=== PATIENT | male | born 1955 | race Hispanic/Latino ===

== ENCOUNTER 2017-09-11 21:48 | Inpatient (IN) | payer SELFPAY ==
[2017-09-11] MEDS ORDERED: Naloxone HCl 2 mg/2 ml Syringe ONE (21:49)
[2017-09-11 22:10] LABS: #Basophils 0.1 thou/uL (0.0-0.2); #Eosinphils 0.4 thou/uL (0.0-0.7); #Lymphocytes 3.1 thou/uL (1.20-3.40); #Monocytes 1.3 thou/uL (0.11-0.59); #Neutrophils 6.5 thou/uL (1.40-6.50); %Basophils 0.4 % (0.0-1.0); %Eosinophils 3.7 % (0.0-10.0); %Lymphocytes 27.1 % (21.0-51.0); %Monocytes 11.5 % (0.0-10.0); %Neutrophils 57.2 % (42.0-75.0); Hemoglobin 6.7 g/dL (14.0-18.0); Mean Corpuscular HGB CONC 32.3 g/dL (32.0-36.0); Mean Corpuscular Volume 89.6 fL (78.0-98.0); Mean Platelet Volume 8.4 fL (7.4-10.4); Platelet Count 182 thou/uL (130-400); RBC Distribution Width 14.3 % (11.5-14.5); Red Blood Cell (RBC) Count 2.31 mill/uL (4.70-6.10); White Blood Cell (WBC) Count 11.4 thou/uL (4.8-10.8)
[2017-09-11 22:13] LABS: INR-International Normal Ratio 1.4; PTT 37.9 SEC (22.9-36.1); Prothrombin Time 17.2 SEC (12.0-14.7)
[2017-09-11 22:26] LABS: ALT (SGPT) 8 U/L (8-55); AST (SGOT) 4 U/L (5-34); Albumin 3.6 g/dL (3.4-4.8); Alkaline Phosphatase 63 U/L (40-150); BUN (Urea Nitrogen) 96 mg/dL (8.4-25.7); Bilirubin, Total 0.3 mg/dL (0.2-1.2); Calc. Creatinine Clearance 0 mL/min (70-130); Calcium 7.8 mg/dL (7.8-10.44); Chloride 112 mmol/L (98-107); Estimated GFR-MDRD 2; Globulin 2.6 g/dL (2.4-3.5); Glucose 69 mg/dL (80-115); Potassium 5.7 mmol/L (3.5-5.1); Protein, Total 6.2 g/dL (5.8-8.1); Sodium 134 mmol/L (136-145)
[2017-09-11 22:27] LABS: Acetaminophen Less than 6.0 mcg/mL (10.0-30.0); Alcohol Less than 10 mg/dL (Less than 10); Salicylate Less than 8.0 mg/dL (15.0-30.0)
[2017-09-11 22:29] LABS: Carbon Dioxide Less than 8 mmol/L (23-31)
--- NOTE | 2017-09-11 22:38 | CT ---
CT BRAIN NONCONTRAST: 09/11/17 HISTORY: 62-year-old male with headache, generalized weakness, unresponsiveness, (altered mental status). FINDINGS: There is no midline shift or any other mass effect. There is no evidence of acute intracranial hemor rhage, large cortical infarct, obstructive hydrocephalus, or extraaxial fluid collection. The calvar ium is intact. IMPRESSION: No acute intracranial findings. jacob [] POS: JULIAN[facility]
[2017-09-11] MEDS ORDERED: Sodium Bicarbonate 2.5 MEQ/5 ML VIAL ONE (22:40)
[2017-09-11] MEDS ORDERED: Sodium Bicarb 50 MEQ/50 ML Abboject 8.4% SYRINGE ONE (22:40)
[2017-09-11] MEDS ORDERED: Dextrose 50% Abboject 50 ML SYRINGE ONE (22:40)
--- NOTE | 2017-09-11 22:53 | CT ---
CT CERVICAL SPINE NONCONTRAST: DATE: 09/11/17 HISTORY: Cervical trauma due to fall. FINDINGS: There are no jumped or perched facets. There is no evidence of acute fracture. The vertebral body h eights are maintained. There is no prevertebral soft tissue swelling. 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 The atlas (C1) is completely fused with the occipital bone. There is no significant disc space narrowing. Moderate degenerative facet changes bilaterally at C2-3. Loss of lordosis. IMPRESSION: 1. No evidence of acute fracture or acute traumatic subluxation. 2. 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 jacob east POS: [facility]
[2017-09-11 23:20] LABS: CKMB 6.6 ng/mL (0-6.6); Troponin I Less than 0.010 ng/mL (< 0.028)
[2017-09-12 00:11] LABS: Bilirubin Negative (Negative); Blood, Urine Moderate (Negative); Glucose, Urine (Dipstick) Negative (Negative); Leukocyte Moderate (Negative); Nitrite Negative (Negative); Protein, Urine (Dipstick) > or equal to 300 mg/dL (Neg-Trace); Specific Gravity, Urine 1.025 (1.005-1.030); Urobilinogen 0.2 mg/dL (0.2-1.0)
[2017-09-12 00:13] LABS: Clarity Cloudy (Clear); Other Microscopic Description Less than 2 mL rec'd
[2017-09-12 00:15] LABS: Bacteria/HPF 2+ HPF (None Seen); Hyaline Casts/LPF NONE SEEN LPF (0-3 Hyaline); Squamous Epithelial 0-3 HPF (0-3)
[2017-09-12] MEDS ORDERED: cefTRIAXone\\ROCEPHIN 2 GM VIAL ONE (01:05)
--- NOTE | 2017-09-12 01:42 | PDOC.FPRHP ---
- History of Present Illness Chief Complaint: HOANG History of Present Illness: Patient is a 62yo M with PMH T2DM, recently taken off Metformin 1.5months ago, presents to ED via EMS initially unresponsive after a syncopal episode at the door of the hospital. Family initially called EMS due to patient acting differently than normal, somewhat confused, and a HOANG that he complained of for about a month that was worsening in nature. He also complained of back pain that had been going on for about 2 weeks. In the ED, he quickly became responsive with stimulus. After labs were drawn, he was found to be in acute renal failure. Dr. Yates was consulted from ED and recommended dialysis access and NS at 75ml/hr. Upon further questioning, patient cannot remember the last time he urinated. He reports going to an outside clinic somewhere in [place] on [address] [place] [address] 2 weeks ago and getting labs drawn, but hasn't heard back from those test results. He has been feeling generally ill for the last week. History is difficult to obtain likely because of language barrier and some confusion. Son is present in the room who again reports some confusion at home although he does not live with him so cannot say how long this has been going on. Patient reports no dysuria, fever, or recent illness. ED Course: In the ED he received 2.5L NS, 1amp bicarb, 1amp D50, and Rocephin 2g. Dr. Yates was also consulted in ED and recommended temporary dialysis access placement and NS at 75ml/hr. Dialysis catheter was inserted in ED by Dr. Schroeder. - Allergies/Adverse Reactions Allergies Allergy/AdvReac Type Severity Reaction Status Date / Time No Known Allergies Allergy Unverified 09/12/17 03:29 - Home Medications Medication Instructions Recorded Confirmed Type No Known [No Known] 09/12/17 09/12/17 History Comments: none - History PMHx: T2DM Hx of osteomyelitis s/p amputation of L 4th toe PSHx: Back sx x1 L 4th toe amputation FHx: DM in mother Social: Drinks alcohol 1x/month, denies tobacco and drug use. - Review of Systems General: denies: fever/chills, weight/appetite/sleep changes, night sweats Eyes: denies: eye pain, vision changes ENT: denies: nasal congestion, rhinorrhea Respiratory: denies: cough, congestion, shortness of breath Cardiovascular: reports: edema. denies: chest pain, palpitation Gastrointestinal: reports: nausea, abdominal pain. denies: vomiting, diarrhea, constipation Genitourinary: denies: incontinence, dysuria, polyuria Skin: denies: rashes Musculoskeletal: reports: pain (back pain). denies: tenderness, stiffness Neurological: reports: syncope, weakness. denies: numbness, seizure Psychological: denies: anxiety, depression - Vital signs BP: 115/71 (initial 90/58) HR: 70 RR: 14 Tmax: 98.1 Pox: 100% on RA Wt: 81kg - Physical Exam Constitutional: awake, alert and oriented -Constitutional: slightly confused but responsive, questions have to be repeated multiple times, could be due to language barrier, card grinder used. HEENT: EOMI, no scleral icterus, grossly normal vision -HEENT: dry MM Heart: normal S1/S2, no murmurs/rubs/gallops, pulses present -Heart: slightly bradycardic, 1+ pitting edema in b/l LE -Lungs: increased work of breathing, increased respiratory rate, wheezing throughout Abdomen: bowel sounds present, no masses/distention -Abdomen: patient is using abdominal muscles while breathing which leads to technically difficult exam, ttp along LLQ, RLQ, and suprapubic area. CVAT bilaterally. Musculoskeletal: normal structure, normal tone Neurological: no focal deficit Skin: no rash/lesions Heme/Lymphatic: no unusual bruising or bleeding, no purpura FMR H&P: Results - Labs Result Diagrams: 09/12/17 04:18 09/11/17 22:00 Lab results: WBC 11.4 thou/uL (4.8-10.8) H 09/11/17 22:06 Hgb 6.7 g/dL (14.0-18.0) L 09/11/17 22:06 Hct 20.7 % (42.0-52.0) L 09/11/17 22:06 MCV 89.6 fL (78.0-98.0) 09/11/17 22:06 Plt Count 182 thou/uL (130-400) 09/11/17 22:06 Neutrophils % 57.2 % (42.0-75.0) 09/11/17 22:06 Sodium 134 mmol/L (136-145) L 09/11/17 22:00 Potassium 5.7 mmol/L (3.5-5.1) H 09/11/17 22:00 Chloride 112 mmol/L (98-107) H 09/11/17 22:00 Carbon Dioxide Less than 8 mmol/L (23-31) L* 09/11/17 22:00 BUN 96 mg/dL (8.4-25.7) H 09/11/17 22:00 Creatinine 24.89 mg/dL (0.6-1.3) H 09/11/17 22:00 Glucose 69 mg/dL (80-115) L 09/11/17 22:00 Lactic Acid 0.8 mmol/L (0.5-2.2) 09/11/17 22:00 Calcium 7.8 mg/dL (7.8-10.44) 09/11/17 22:00 Total Bilirubin 0.3 mg/dL (0.2-1.2) 09/11/17 22:00 AST 4 U/L (5-34) L 09/11/17 22:00 ALT 8 U/L (8-55) 09/11/17 22:00 Alkaline Phosphatase 63 U/L (40-150) 09/11/17 22:00 CK-MB (CK-2) 6.6 ng/mL (0-6.6) 09/11/17 22:00 Serum Total Protein 6.2 g/dL (5.8-8.1) 09/11/17 22:00 Albumin 3.6 g/dL (3.4-4.8) 09/11/17 22:00 Urine Ketones Negative mg/dL (Negative) 09/11/17 22:15 Urine Blood Moderate (Negative) H 09/11/17 22:15 Urine Nitrite Negative (Negative) 09/11/17 22:15 Ur Leukocyte Esterase Moderate (Negative) H 09/11/17 22:15 Urine RBC 4-6 HPF (0-3) 09/11/17 22:15 Urine WBC 11-20 HPF (0-3) H 09/11/17 22:15 Ur Squamous Epith Cells 0-3 HPF (0-3) 09/11/17 22:15 Urine Bacteria 2+ HPF (None Seen) H 09/11/17 22:15 - Radiology Interpretation CT scan - head Status: image reviewed by me, report reviewed by me Additional comment: negative for intracranial process CT scan - abdomen Status: image reviewed by me, report reviewed by me Additional comment: Bilateral nephrolithiasis with 1 8mm lobulated stone in UPJ FMR H&P: A/P - Problem List (1) Acute renal failure Current Visit: Yes Status: Acute (2) Urinary tract obstruction by kidney stone Current Visit: Yes Status: Acute Code(s): N20.0 - CALCULUS OF KIDNEY; N13.8 - OTHER OBSTRUCTIVE AND REFLUX UROPATHY (3) Sepsis secondary to UTI Current Visit: Yes Status: Acute Code(s): A41.9 - SEPSIS, UNSPECIFIED ORGANISM; N39.0 - URINARY TRACT INFECTION, SITE NOT SPECIFIED (4) Bilateral nephrolithiasis Current Visit: Yes Status: Acute Code(s): N20.0 - CALCULUS OF KIDNEY (5) Coagulopathy Current Visit: Yes Status: Acute (6) Hyperkalemia Current Visit: Yes Status: Acute Code(s): E87.5 - HYPERKALEMIA (7) High anion gap metabolic acidosis Current Visit: Yes Status: Acute Code(s): E87.2 - ACIDOSIS (8) UTI (urinary tract infection) Current Visit: Yes Status: Acute (9) Normocytic anemia Current Visit: Yes Status: Chronic Code(s): D64.9 - ANEMIA, UNSPECIFIED (10) Chronic kidney disease (CKD) Current Visit: Yes Status: Chronic Code(s): N18.9 - CHRONIC KIDNEY DISEASE, UNSPECIFIED (11) Hyperchloremia Current Visit: Yes Status: Acute Code(s): E87.8 - OTH DISORDERS OF ELECTROLYTE AND FLUID BALANCE, NEC (12) Diabetes mellitus Current Visit: Yes Status: Chronic Code(s): E11.9 - TYPE 2 DIABETES MELLITUS WITHOUT COMPLICATIONS - Plan Acute Renal Failure on CKDIII - Likely 2/2 obstructing stone in UPJ seen on CT, but per hx, concern for worsening chronic kidney disease with discontinuation of Metformin recently and progressive sx since that time. Also, patient meeting SIRS criteria with hypotension (90/58), hypothermia (94.1), tachypnea (24) and UA showing UTI as a source, with possibility of an infected stone. Place in IMCU for close monitoring. - [place] consulted in ED, plan for dialysis this AM - Mg, Phos, PTH pending - FeUrea pending - evaluate for toxic cause with UDS - NS at 75ml/hr per Yates recs - avoid nephrotoxic agents Sepsis 2/2 UTI - s/p 2g Rocephin in ED - continue Rocephin q24h - blood and urine cx pending - LA wnl - procalcitonin pending - repeat CBC - s/p 2.5L IVF in ED, continue NS at 75 per Yates recs Obstructing 8mm Stone - [facility] urology, consulted ED - NPO for possible procedure Hyperchloremic Anion Gap Metabolic Acidosis - 2/2 Uremia from ARF - plan for dialysis - patient s/p 1 amp bicarb in ED - repeat CMP this AM Normocytic Anemia - appears to be worsening of chronic anemia per chart review from stay in 09/2016 - Hg 6.7, asymptomatic, likely 2/2 CKD - plan for 1u pRBC with dialysis this am - iron studies and FOBT pending Hyperkalemia - initally volume depleted on exam, now s/p 2.5L, will repeat after fluids and reassess for need for calcium gluconate and albuterol - repeat EKG pending Coagulopathy - PT and PTT prolonged, per chart review, was prolonged to lesser degree in 2017 - likely related to CKD - evaluate for hepatic source with hepatitis panel T2DM - last A1c in chart wnl - repeat A1c - SSI Syncopal Episode - 2/2 acute illness - fall precautions and up with assist until improvements Headache - resolved after fluids, likely 2/2 uremia - CThead negative - avoid NSAIDS - tylenol for pain if needed VTE Ppx: SCDs Code status: Full Dispo: likely stay >48h for evaluation of ARF and future management FMR H&P: Upper Level - Pertinent history 62HM presenting to ED with 8 day history of headache and general malaise. Patient with very low health literacy and Kyrgyz as second language, providing minimal history despite use of card grinder. He has had a constant headache and vague lumbar back pain for over a week now. His son called EMS and upon arrival patient had a syncopal episode. He "could not feel his legs from his knees down " at the time. It is unclear when the last time he urinated was. He denies hematuria and dysuria. Review of records shows PM of DMII, HTN, HLD, and PVD. Evaluation in ED shows significant renal deterioration compared to previous labs. Nephrology consulted by ED physician and recommend central venous access for dialysis today. He is s/p 2.5 L NS, 1 amp of bicarb, 1 amp of D50, and Rocephin. - Pertinent findings Vitals: 115/71 mmHg 70 bpm 14 breaths/m 100% on RA 98.1F PE General: A&Ox3 HEENT: no scleral icterus, dry mucous membranes CV: RRR, no murmurs Pulm: bilateral expiratory wheezes Abd: soft, non distended, normal bowel sounds Skin: no rashes or lesions See fall internship portion for imaging results - Plan Date/Time: 09/12/17 1459 1. Acute Renal Failure on CKDIII: unclear etiology at this time. Possibly due to obstructing stone seen on CT, but history consistent with gradual worsening of poor baseline kidney function. UTI shows possible infectious source, but initial vitals in ED are wnl. Will draw urine osms, FeUrea, Procalcitonin for further workup. Admit inpatient/IMCU. Dr. Yates will follow and dialyze tomorrow. Continue NS @ 75 per his recommendations 2. UTI: 8 mm stone in UP junction likely the cause. He is s/p 2G Rocephin in ED. Will continue abx with cultures and procal pending. Urology (Franko) consulted and will evaluate in the AM. 3. Hyperchloremic Anion Gap Metabolic Acidosis: secondary to uremia. Bicarbonate is undetectable upon admission. Dialysis tomorrow with recheck of CMP. Trend and treat accordingly 4. Normocytic Anemia: likely secondary to CKD. Normal Hg is between 9-10. He is asymptomatic currently so we will hold off on blood. Likely EPO per Nephro. Iron studies and FOBT pending. 5. Hyperkalemia: initial EKG showed peaked T waves, will repeat now and recheck after 2.5L fluid. Will likely need calcium gluconate, albuterol, and Kayexalate. 6. DMII: recheck A1C due to poor history. SSI with accuchecks qAC/HS Code status: Full I, Hudson Mckeon, have evaluated this patient and agree with findings/plan as outlined by fall internship resident. Pertinent changes/additions are listed here.
[2017-09-12] MEDS ORDERED: Dextrose 50% Abboject 50 ML SYRINGE SLOW IVP PRN (03:23)
[2017-09-12] MEDS ORDERED: Dextrose 5% in Water 1,000 ML IV PRN (03:23)
[2017-09-12] MEDS ORDERED: HumaLOG 300 UNITS/3 ML VIAL SC PRN (03:28)
[2017-09-12] MEDS ORDERED: Acetaminophen 325 MG TAB PO PRN (03:31)
[2017-09-12] MEDS ORDERED: Ondansetron ODT 4 MG TAB SL PRN (03:31)
[2017-09-12] MEDS ORDERED: Ondansetron HCl/PF 4 MG/2 ML Vial IVP PRN (03:31)
[2017-09-12 03:39] LABS: Amphetamine Not Detected (NotDetected); Barbiturates Screen Not Detected (NotDetected); Benzodiazepine Screen Not Detected (NotDetected); Cocaine Metabolite Screen Not Detected (NotDetected); Medtox Control Line Valid? VALID (VALID); Medtox Reader # READER 1; Methadone Not Detected (NotDetected); Methamphetamine Not Detected (NotDetected); Opiate Screen Not Detected (NotDetected); Oxycodone Screen Not Detected (NotDetected); Phencyclidine (PCP) Not Detected (NotDetected); THC/Cannabinoid Screen Not Detected (NotDetected); Tricyclic Screen Not Detected (NotDetected)
[2017-09-12] MEDS: Sodium Chloride 0.9% 1,000 ML IV SCH ×2 (04:42→18:09)
[2017-09-12 04:55] LABS: Creatinine, Urine 180.91 mg/dL (63-166)
[2017-09-12 05:02] LABS: #Eosinphils 0.2 thou/uL (0.0-0.7); #Lymphocytes 1.3 thou/uL (1.20-3.40); #Monocytes 0.9 thou/uL (0.11-0.59); #Neutrophils 6.2 thou/uL (1.40-6.50); %Basophils 0.3 % (0.0-1.0); %Eosinophils 2.3 % (0.0-10.0); %Lymphocytes 14.8 % (21.0-51.0); %Monocytes 10.1 % (0.0-10.0); %Neutrophils 72.4 % (42.0-75.0); Hemoglobin 6.3 g/dL (14.0-18.0); Mean Corpuscular HGB CONC 31.9 g/dL (32.0-36.0); Mean Corpuscular Hemoglobin 28.6 pg (27.0-31.0); Mean Corpuscular Volume 89.4 fL (78.0-98.0); Mean Platelet Volume 8.3 fL (7.4-10.4); Platelet Count 159 thou/uL (130-400); RBC Distribution Width 14.3 % (11.5-14.5); White Blood Cell (WBC) Count 8.6 thou/uL (4.8-10.8)
[2017-09-12 05:09] LABS: Hemoglobin A1c 5.9 % (4.0-6.0)
[2017-09-12 05:16] LABS: ALT (SGPT) 7 U/L (8-55); AST (SGOT) 3 U/L (5-34); Albumin 3.4 g/dL (3.4-4.8); Alkaline Phosphatase 58 U/L (40-150); BUN (Urea Nitrogen) 91 mg/dL (8.4-25.7); Bilirubin, Total 0.2 mg/dL (0.2-1.2); CK (CPK) 148 U/L (30-200); Calc. Creatinine Clearance 3 mL/min (70-130); Calcium 7.5 mg/dL (7.8-10.44); Chloride 116 mmol/L (98-107); Estimated GFR-MDRD 2; Globulin 2.4 g/dL (2.4-3.5); Glucose 94 mg/dL (80-115); Magnesium 2.7 mg/dL (1.6-2.6); Potassium 5.2 mmol/L (3.5-5.1); Protein, Total 5.8 g/dL (5.8-8.1); Sodium 136 mmol/L (136-145)
[2017-09-12 05:19] LABS: Carbon Dioxide Less than 8 mmol/L (23-31); Phosphorus 11.8 mg/dL (2.3-4.7)
[2017-09-12 05:32] LABS: Syphilis Antibody Nonreactive (Nonreactive); Syphilis Antibody Index 0.03 S/CO (<1.00 Non-Reactive)
[2017-09-12 05:35] LABS: HBCM Index 0.13 S/CO (0-0.79); HBSAg Index 0.18 S/CO (0-0.99); Hep B Surf Ag Non-Reactive S/CO (NonReactive); Hep C IgG Ab Non-Reactive (NonReactive); Hepatitis B Core IGM Abs Non-Reactive (NonReactive)
--- NOTE | 2017-09-12 06:35 | PDOC.EVN ---
Event Note - Event Note Event Note: Attending attestation for H&P. Seen and examined. Agree with H&P as written. Patient has been reportedly bed bound for a week after discussing with son, who was notified of his father's condition by a friend. Has had back pain, chills, fevers, but no dysuria or urgency. He is ill appearing, but in no acute distress. Labs and imaging reviewed. BC, UC and antibiotics, urology consultation. Admission to IMCU. Dialysis catheter in place and plan for this AM with transfusion at that time. Guarded prognosis.
[2017-09-12] MEDS: Acetaminophen 325 MG TAB PO PRN ×2 (08:41→18:07)
--- NOTE | 2017-09-12 08:43 | CT ---
PRELIMINARY REPORT/[facility]/EMERGENTY AFTER-HOURS PROCEDURE CT Abdomen and Pelvis Without Intravenous Contrast CLINICAL HISTORY: 62 years old, male; Pain; Abdominal pain; Generalized; Patient HX: Eval for possible obstruction. HX of acute kidney injury. TECHNIQUE: Axial computed tomography images of the abdomen and pelvis without intravenous contrast. COMPARISON: No relevant prior studies available. FINDINGS: Lower thorax: No acute findings. ABDOMEN: Liver: Normal. No mass. Gallbladder and bile ducts: Normal. No calcified stones. No ductal dilation. Pancreas: Normal. No ductal dilation. Spleen: Normal. No splenomegaly. Adrenals: Normal. No mass. Kidneys and ureters: Lobulated 8 mm stone in the left ureteropelvic junction (UPJ). Mild-moderate lef t proximal renal collecting system dilatation and perinephric fat stranding. Mild-moderate bilateral perinephric fluid stranding. Bilateral renal densities are suspected stones-8 mm in maximal size. Stomach and bowel: Normal. No obstruction. No mucosal thickening. Appendix: Visualized portions of appendix appear normal. PELVIS: Bladder: Landry catheter bulb within empty bladder. Reproductive: Prostate appears within normal limits. ABDOMEN and PELVIS: Intraperitoneal space: Mild pelvic free fluid. Bones/joints: Chronic degenerative changes of the lumbar spine. Soft tissues: Unremarkable. Vasculature: Chronic atherosclerotic calcification of the vasculature. Lymph nodes: Normal. No enlarged lymph nodes. IMPRESSION: 1. Lobulated 8 mm stone in the left ureteropelvic junction (UPJ). Mild-moderate left proximal obstruc tive uropathy and obstructive nephropathy. 2. Suspected bilateral renal stones. 3. Mild pelvic free fluid. Thank you for allowing us to participate in the care of your patient. Dictated and Authenticated by: Qasim Allen MD 09/12/2017 2:16 AM Central Time ([place] & [place]) FINAL REPORT CT ABDOMEN AND PELVIS: Multiple tomograms are obtained through the abdomen and pelvis without IV enhancement. There are bilateral renal calculi with numerous calculi in the upper collecting structures of both ki dneys. There is an 8-10 mm calculus in the proximal left ureter at or just beyond the left ureterope lvic junction. I am in agreement with the preliminary report. POS: [facility]
[2017-09-12 09:05] LABS: Hep B Surf AB Reactive (NonReactive)
[2017-09-12 09:06] LABS: HBSAB Concentration 2599.97 mIU/mL
[2017-09-12] MEDS ORDERED: Succinylcholine Chloride 20 MG/ML 10 ml SYRINGE FS ONE (10:26)
[2017-09-12] MEDS ORDERED: PROPOFOL 200 MG/20 ML VIAL ONE (10:26)
[2017-09-12] MEDS ORDERED: Lidocaine 1% PF 5 ML VIAL ONE (10:26)
[2017-09-12] MEDS ORDERED: Ondansetron HCl/PF 4 MG/2 ML Vial ONE (10:26)
[2017-09-12] MEDS ORDERED: ePHEDrine/0.9% NaCl/PF SYRINGE 50 mg/10 ml ONE (10:26)
[2017-09-12] MEDS ORDERED: Heparin 1,000 UNITS/ML VIAL ONE (11:11)
--- NOTE | 2017-09-12 11:24 | CON ---
DATE OF CONSULTATION: 09/12/2017 RENAL MEDICINE HISTORY OF PRESENT ILLNESS: Mr. Clark is a 62-year-old male who was admitted due to mental s tatus change. He has been feeling weak for the last several days and for that reason he was brought to the ER. During the initial evaluation in the ER, he was found to be in acute kidney injury. CT s can of the brain was done which showed no acute intracranial abnormality. However, creatinine was no norm to be about 24 mg percent, hence did renal consultation. Subsequent CT scan of the abdomen and p shawna showed obstructive uropathy. Urology has been consulted. He is now undergoing hemodialysis fo r 2 hours. In addition, a blood transfusion will be given during that said dialysis. Patient still feeling lethargic. REVIEW OF SYSTEMS: No chest pain. Positive for lethargy, no nausea and vomiting. Decreased appetit e, decreased energy level. Positive for abdominal pain. No gross hematuria, decreased urine output. No hematochezia, no melena, no hematemesis, no syncopal episode, no productive cough, no fever or c hills. MEDICATIONS: Humalog sliding scale, Zofran 4 mg IV q.6 p.r.n., status post Pneumovax, normal saline 75 mL per hour. PAST MEDICAL HISTORY: Type 2 diabetes mellitus. PAST SURGICAL HISTORY: Status post left toe amputation. SOCIAL HISTORY: Patient is , but lives in [place]. He lives with a friend. He lives in [place]. He has total of 4 children. Smoked 1-2 cigarettes per day. Alcohol is occasional. No IV dr ug abuse. No blood transfusion. No formal schooling. He works in the [employer] business. ALLERGIES: No known drug allergies. TRAUMA: None. IMMUNIZATIONS: Unknown. HOSPITALIZATIONS: Please see past medical history. FAMILY HISTORY: Noncontributory. PHYSICAL EXAMINATION: VITAL SIGNS: Blood pressure 116/57, heart rate 68, respiratory rate 16, temperature 97.6, pulse oxim etry 100% on room air. GENERAL: Awake, but somewhat lethargic, not in distress. SKIN: Decreased turgor. HEENT: Pale conjunctivae, anicteric sclerae. NECK: No neck mass, no carotid bruits, no JVD. CHEST: No deformities. LUNGS: Clear breath sounds, no wheezing, no crackles. HEART: Normal sinus rhythm. No murmurs, no gallops, no rubs. ABDOMEN: Globular, soft, nontender, no masses. Positive for bowel sounds. Negative for epigastric bruits. EXTREMITIES: No edema, no deformities. He has a right femoral dialysis catheter. NEUROLOGIC: Sleepy but arousable, not in distress. No tremors, no asterixis. LABORATORY DATA: Laboratories of 09/12/2017; white count 8.6, hemoglobin 6.3, hematocrit 19.7. Sodi um 136, potassium 5.2, chloride 106, carbon dioxide less than 8, BUN 91, creatinine 24, glucose 94, p hosphorus 11.8, calcium 7.5, magnesium 2.7, AST 3, ALT 7. Urinalysis, protein greater than 300, rbc 4-6, wbc 11-20. IMAGING DATA: On 09/12/2017, CT scan of the pelvis and abdomen shows bilateral renal calculi with nu merous calculi in the upper collecting structures of both kidneys. There is a mild to moderate left proximal obstructive uropathy/obstructive nephropathy. ASSESSMENT AND PLAN: 1. Acute kidney injury - consider possibility of superimposed obstructive uropathy on underlying int rinsic renal problem. The patient does show proteinuria and he does have longstanding history of frank betes mellitus. Urology consult has been done. A planned operative procedure will be done to help r richardeve the obstruction - cystoscopy with possible ureteral stent placement. The patient is currently undergoing a 2-hour hemodialysis today with minimal fluid removal. No heparin is being used. In ad dition, I have scheduled him back for 3-hour hemodialysis tomorrow and again on Friday or 2 days afte r today we will do a 4-hour hemodialysis. It is unclear what the baseline renal function of this pat ient will be. 2. Anemia - p.r.n. blood transfusion. Start Epogen 7500 units subcutaneously every week, ferrous archer lfate 325 mg b.i.d. Recheck base met and CBC in a.m. His prognosis remains guarded.
[2017-09-12] MEDS ORDERED: Iothalamate Meglumine 60% 50 ML VIAL FS ONE (11:31)
[2017-09-12 13:08] LABS: #Eosinphils 0.1 thou/uL (0.0-0.7); #Lymphocytes 0.8 thou/uL (1.20-3.40); #Monocytes 1.1 thou/uL (0.11-0.59); #Neutrophils 8.6 thou/uL (1.40-6.50); %Basophils 0.3 % (0.0-1.0); %Eosinophils 0.9 % (0.0-10.0); %Lymphocytes 7.3 % (21.0-51.0); %Monocytes 9.9 % (0.0-10.0); %Neutrophils 81.6 % (42.0-75.0); Hemoglobin 7.9 g/dL (14.0-18.0); Mean Corpuscular HGB CONC 33.1 g/dL (32.0-36.0); Mean Corpuscular Hemoglobin 28.3 pg (27.0-31.0); Mean Corpuscular Volume 85.6 fL (78.0-98.0); Mean Platelet Volume 8.7 fL (7.4-10.4); Platelet Count 156 thou/uL (130-400); RBC Distribution Width 14.5 % (11.5-14.5); Red Blood Cell (RBC) Count 2.77 mill/uL (4.70-6.10); White Blood Cell (WBC) Count 10.5 thou/uL (4.8-10.8)
--- NOTE | 2017-09-12 13:16 | CON ---
DATE OF CONSULTATION: 09/12/2017 HISTORY OF PRESENT ILLNESS: The patient is a 62-year-old male who has not seen a doctor in several years, but has a known history of diabetes for approximately 3-4 years. He was not feeling well for a while and complaining of a headache and brought in, partially unresponsive and then seemed to be resuscitated and appropriate and found to be in acute renal failure with no prior history of this and a CT showing an obstructing stone, so I was consulted. There is also concern for urine infection. PAST MEDICAL HISTORY: Diabetes for 3-4 years. PAST SURGICAL HISTORY: Toe amputations. MEDICATIONS: None. ALLERGIES: None. REVIEW OF SYSTEMS: From the answers from his son, he does not think he had any nausea, vomiting, diarrhea or constipation. He did not have any fever or chills. He did not have any chest pain or cough. He did have a headache and was just feeling overall unwell. SOCIAL HISTORY: His lives in [place]. He lives with a roommate here in town. 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 He has 2-3 cigarettes a week. He drinks alcohol, but not daily and never used IV drugs. FAMILY HISTORY: His mom of diabetes in her 60s. Dad , I am not sure. PHYSICAL EXAMINATION: GENERAL: He is alert, but not oriented. He could not tell me his name, the day or where he was but he was cooperative. VITAL SIGNS: Temperature is 97.6, heart rate 68, blood pressure 116/57, satting 100% on room air. HEENT: He had no scleral icterus. NECK: He had no JVD. He did have a broad wide neck. CARDIOVASCULAR: His heart has a regular rate and rhythm. No murmurs, gallops or rubs. LUNGS: Clear to auscultation bilaterally. ABDOMEN: Soft, nondistended, nontender. GENITOURINARY: Testes were descended bilaterally without masses. Phallus is uncircumcised, unable to be retracted, there was some early phimosis and was then easily reduced. NEFTALI was deferred. EXTREMITIES: He had no lower extremity edema. LABORATORY DATA: Reveal a white count that was 11.4 upon admission and now 8.6. He has a significant anemia at 6.3 and 19.7. His PT is 17.2, INR 1.4 and PTT 37.9. BUN and creatinine are 91 and 24.5. Glucose was only 69 when he came in and hemoglobin A1c was only 5.9. Urinalysis revealed 11-20 WBCs, 4-6 RBCs, 2+ bacteria and 0-3 squamous cells. IMAGING: CT scan without contrast reviewed personally revealed multiple stones throughout the kidneys including a right partial staghorn in the upper pole, mid pole stone that was 1.3 cm and lower pole stone that was at least 1cm. On the left, he had stones throughout ranging from 8mm-1.4 cm in addition to a 1.5 cm x 7 mm proximal left ureteral stone with minimal pelvic distention, but no actual hydronephrosis. It did appear that you could see this on the network support analyst. His bladder was decompressed with a mayo and prostate unremarkable. ASSESSMENT: We have a 62-year-old male with acute renal failure, likely secondary to chronic disease exacerbated by an obstructing left ureteral stone with concern for urinary tract infection. My initial thought process was to place an urgent stent and then allow dialysis since Nephrology was not too concerned about the timing of that; however, when I came to see him, he just pulled out an IV and was quite confused and based on his numbers and vitals, I did not feel he was septic but rather uremic. Therefore my concern would be general anesthesia in such a case would be more harmful than proceeding with dialysis and placing the stent immediately after. At this point, I called anesthesia and discussed the case with them. They were agreeable that it sounded reasonable to proceed with dialysis first, and then the stent to follow. I asked the nurse to get dialysis initiated sooner than later, and she called the center to initiate this. I'll attempt stent placement immediately after. COLEEN
[2017-09-12 13:18] LABS: Anion Gap 20 mmol/L (10-20); BUN (Urea Nitrogen) 55 mg/dL (8.4-25.7); Calc. Creatinine Clearance 5 mL/min (70-130); Calcium 7.6 mg/dL (7.8-10.44); Carbon Dioxide 12 mmol/L (23-31); Chloride 108 mmol/L (98-107); Estimated GFR-MDRD 4; Glucose 130 mg/dL (80-115); Sodium 137 mmol/L (136-145)
--- NOTE | 2017-09-12 14:00 | CON ---
DATE OF CONSULTATION: 09/12/2017 HISTORY OF PRESENT ILLNESS: He is a 62-year-old gentleman, 5 feet, 6 inches, 148 poun ds, who speaks no Greek. History is obtained from talking to the patient's son, who was at the bed side. He speaks little Greek, but states that his father has diabetes, takes no medication. He whittaker s had amputation on his right foot. He sees doctor on [address], unable to recollect his name, but presented to the ER with several days history of headache. CT head and neck was done, which was unre markable. Because of unresponsive, he came into the ER arrived extensive CT imaging studies were don e which showed pertinent left ureteral stone. There is evidence of hydronephrosis. His renal functi ons showed he was in acute renal failure with bicarbonate of less than 8, phosphorus is 11. BUN and creatinine are markedly elevated at 91 and 24 respectively. White count is 8000, H&H is 6 and 19 wit h a platelet count of 159. The patient smokes 3 cigarettes a day. Denies any substance abuse, alcohol abuse. PAST MEDICAL HISTORY: Diabetes, no medication. PAST SURGICAL HISTORY: Amputation of the toes. ALLERGIES: Unknown. SOCIAL HISTORY: Does [employer]. FAMILY HISTORY: Unremarkable. REVIEW OF SYSTEMS: Difficult to obtain. PHYSICAL EXAMINATION: VITAL SIGNS: Pulse 60, respiration 16, sats are 100% on room air, blood pressure is 116/57. GENERAL: He is awake, responsive. EXTREMITIES: Trace edema. CHEST: Decreased breath sounds, no wheezing. CARDIAC: Normal S1, S2. No gallops. ABDOMEN: Soft, no masses. IMPRESSION: 1. Acute renal failure, requiring emergent dialysis. 2. Diabetes. 3. Anemia. 4. Headache. PLAN: Baseline chest x-ray is being ordered. Pulmonary pack at this stage, we will follow while in the MICU. Hopefully, his condition improves once he is dialyzed, probably needs ongoing counseling a id diabetic care. This is a consultation note of 70 minutes in which 50% spent in direct patient care.
[2017-09-12 14:29] LABS: Bilirubin Negative (Negative); Blood, Urine Large (Negative); Clarity CLOUDY (Clear); Glucose, Urine (Dipstick) Negative (Negative); Leukocyte Moderate (Negative); Nitrite Negative (Negative); Protein, Urine (Dipstick) 30 mg/dL (Neg-Trace); Specific Gravity, Urine 1.007 (1.002-1.036); Urobilinogen 0.2 mg/dL (0.2-1.0)
[2017-09-12 14:40] LABS: Bacteria/HPF None Seen HPF (None Seen); Pathc Cast-AUWi Flag 0.29 (0-2.49)
[2017-09-12 14:43] LABS: Yeast-AUWi Flag 100.1 (0-25.0)
[2017-09-12 14:50] LABS: Hyaline Casts/LPF NONE SEEN LPF (0-3 Hyaline); RBC/HPF 21-50 HPF (0-3); Renal Epithelial 0-3 HPF (0-3); Squamous Epithelial None Seen HPF (0-3); Transitional Epithelial NONE SEEN HPF (0-3)
[2017-09-12] MEDS: Epoetin (ESRD) 20,000 UNITS/ML SC SCH (15:16)
--- NOTE | 2017-09-12 15:17 | RAD ---
RETROGRADE PYELOGRAM: Date: 09/12/17 INDICATION: Left ureteral stone. Images during retrograde procedure. Three images are presented. IMPRESSION: First image shows a catheter in the mid left ureter from a retrograde approach with mild opacificatio n of the upper collecting structures. There is a rounded filling defect in the left renal pelvis cons istent with a calculus. Second image shows a catheter coiled in the proximal left ureter. The final i mage shows a double pigtail ureteral stent in place. POS: [facility]
[2017-09-12] MEDS: Ferrous Sulfate 325 MG TAB PO SCH (18:05)
--- NOTE | 2017-09-12 18:49 | RAD ---
CHEST ONE VIEW: 09/12/17 HISTORY: Renal failure. COMPARISON: None. FINDINGS: Normal cardiac silhouette. The pulmonary vessels are prominent. Patchy interstitial opacities. No pne umothorax. No significant pleural fluid. IMPRESSION: Pulmonary vascular prominence. Patchy interstitial opacities. Correlate for volume overload. POS: [facility]
[2017-09-12] MEDS ORDERED: traMADol HCl 50 MG TAB PO SCH (20:30)
[2017-09-13] MEDS: cefTRIAXone\\ROCEPHIN 2 GM in Sodium Chloride 0.9% 100 ML IVPB SCH (01:13)
[2017-09-13] MEDS: Sodium Chloride 0.9% 1,000 ML IV SCH ×2 (01:18→20:22)
--- NOTE | 2017-09-13 04:42 | OP ---
DATE OF SERVICE: 09/12/2017 PREOPERATIVE DIAGNOSES: Acute renal failure, urinary tract infection, obstructing left ureteral ston e. POSTOPERATIVE DIAGNOSES: Acute renal failure, urinary tract infection, obstructing left ureteral sto ne. PROCEDURES: Cystoscopy, left-retrograde pyelogram, insertion of left ureteral stent 6 x 22. SPECIMENS: Urine from the left renal pelvis, which was diluted with saline in order to sent for micr o and culture. ESTIMATED BLOOD LOSS: No blood loss. COMPLICATIONS: No complications. DRAIN: Running 6 x 22 and a Landry catheter 18-Czech. INDICATIONS FOR THE PROCEDURE: Patient is a 62-year-old male who admitted acutely with headache, mal aise, mental status changes if not passing out, and noted to have a creatinine of 24 with an obstruct ing left stone in the UTI. He was hemodynamically stable, but I was still planning on doing an emerg ent stent, but when I evaluated him, he did not seem concerning for infectious sepsis, confusion, but rather uremia, so I felt that was more important for him to be dialyzed prior to placing the stent i n order to better tolerate general anesthesia and then proceeded with the emergent stent thereafter. TECHNIQUE: Patient was brought into the room by Anesthesia, lying table in supine position. After r eceiving general anesthetic, his legs were placed in lithotomy position and his perineum was prepped and draped in a sterile fashion. Using the 22-Czech cystoscope and 30-degree lens were used with tr aversed and the bladder inspected. Ureteral orifices were in normal position. Pollack catheter coul d not initially entered the left ureteral orifice, so a wire would not go more than about a cm. Then , a Glidewire was used and a Glidewire was also having difficulty despite significant angulation and changes in position. Finally, it was able to get the Glidewire to go up into the presumed ureter and the Pollack catheter followed easily before I got this farther than the mid to proximal ureter, I to ok the wire out and did a retrograde pyelogram, which confirmed a tortuous but ureter nonetheless, so I continued to place the Glidewire up into the renal pelvis and have the Pollack catheter follow it. The Glidewire was then taken out and approximately 6 mL of clear urine was extracted and sent, but I wanted micro and cultures, so this was diluted to approximately enough to send for both with normal saline then measurements were taken in a 6 x 22 double-J stent was chosen. The Pollack catheter was actually coiled on itself in the proximal ureter, so then a stiff wire was then obtained to straight en that out and bring the Pollack catheter back to its proper course with attending in the renal pelv is before the regular wire was replaced, and then a 6 x 24 double-J was placed over the wire with a g ood coil visualized in the renal pelvis via fluoroscopy and a good coil visualized in the bladder via cystoscopy. Since he was not making significant urine, I did not wait for any effuse, but then the scope was broken apart, bladder drained, and then refilled knowing it was going to place a catheter j ust for further irrigation purposes and the scope was removed and an 18-Czech Landry was placed to gr avity. The patient tolerated the procedure well and was then awakened and transferred to the PACU in stable condition.
[2017-09-13 04:46] LABS: #Eosinphils 0.1 thou/uL (0.0-0.7); #Lymphocytes 1.1 thou/uL (1.20-3.40); #Monocytes 1.2 thou/uL (0.11-0.59); #Neutrophils 6.5 thou/uL (1.40-6.50); %Basophils 0.1 % (0.0-1.0); %Eosinophils 1.1 % (0.0-10.0); %Lymphocytes 12.7 % (21.0-51.0); %Neutrophils 73.1 % (42.0-75.0); Hemoglobin 7.9 g/dL (14.0-18.0); Mean Corpuscular HGB CONC 33.4 g/dL (32.0-36.0); Mean Corpuscular Hemoglobin 28.4 pg (27.0-31.0); Mean Corpuscular Volume 84.9 fL (78.0-98.0); Mean Platelet Volume 8.2 fL (7.4-10.4); Platelet Count 161 thou/uL (130-400); RBC Distribution Width 15.1 % (11.5-14.5); Red Blood Cell (RBC) Count 2.77 mill/uL (4.70-6.10); White Blood Cell (WBC) Count 8.9 thou/uL (4.8-10.8)
[2017-09-13 05:00] LABS: Anion Gap 18 mmol/L (10-20); BUN (Urea Nitrogen) 59 mg/dL (8.4-25.7); Calc. Creatinine Clearance 5 mL/min (70-130); Calcium 7.3 mg/dL (7.8-10.44); Carbon Dioxide 13 mmol/L (23-31); Chloride 111 mmol/L (98-107); Estimated GFR-MDRD 3; Glucose 85 mg/dL (80-115); Potassium 3.5 mmol/L (3.5-5.1); Sodium 138 mmol/L (136-145)
[2017-09-13 05:19] LABS: HIV (1/2) Antibody/Antigen Non-Reactive (NonReactive); HIV 1/2 INDEX 0.08 S/CO (<1.00)
[2017-09-13] MEDS ORDERED: Ondansetron ODT 4 MG TAB PO SCH (06:00)
--- NOTE | 2017-09-13 06:20 | PDOC.FM ---
- Subjective Subjective: Patient complains of nausea this morning and was given a dose of Zofran at about 0600. No other complaints. No adverse events overnight. - Objective MAR Reviewed: Yes Vital Signs & Weight: Vital Signs (12 hours) Temp Pulse Resp BP Pulse Ox 09/13/17 03:46 98.7 F 70 17 118/60 99 09/12/17 23:55 98.7 F 71 20 129/64 100 09/12/17 19:27 98.8 F 77 18 100 09/12/17 19:00 98.8 F 74 18 147/69 H 100 Weight Admit Weight 67.358 kg Weight 67.1 kg Most Recent Monitor Data Heart Rate from ECG 68 NIBP 144/70 I&O: 09/11/17 09/12/17 09/13/17 06:59 06:59 06:59 Intake Total 300 441 Output Total 15 30 Balance 285 411 Result Diagrams: 09/13/17 04:23 09/13/17 04:23 <Jayna Novak - Last Filed: 09/13/17 09:59> - Objective Vital Signs & Weight: Vital Signs (12 hours) Temp Pulse Resp BP Pulse Ox 09/13/17 07:37 98.9 F 66 20 09/13/17 07:22 98.9 F 66 20 131/64 99 09/13/17 03:46 98.7 F 70 17 118/60 99 09/12/17 23:55 98.7 F 71 20 129/64 100 Weight Admit Weight 67.358 kg Weight 67.1 kg Most Recent Monitor Data Heart Rate from ECG 68 NIBP 144/70 I&O: 09/12/17 09/13/17 09/14/17 06:59 06:59 06:59 Intake Total 300 1566 Output Total 15 120 Balance 285 1446 Result Diagrams: 09/13/17 04:23 09/13/17 04:23 <Christiano Hooker - Last Filed: 09/13/17 10:42> Phys Exam - Physical Examination Constitutional: NAD Respiratory: clear to auscultation bilateral Cardiovascular: RRR Gastrointestinal: soft, non-tender, no distention Musculoskeletal: no edema Psychiatric: normal affect <Jayna Novak - Last Filed: 09/13/17 09:59> Dx/Plan (1) Acute renal failure Status: Acute Plan: Likely secondary to obstructive uropathy. Improving s/p dialysis and stent placement. Pt has dialysis scheduled today. Will continue to monitor. (2) Sepsis secondary to UTI Code(s): A41.9 - SEPSIS, UNSPECIFIED ORGANISM; N39.0 - URINARY TRACT INFECTION, SITE NOT SPECIFIED Status: Resolved Plan: Resolved. Vitals stable. patient remains afebrile. Will continue Rocephin until cultures result. (3) Bilateral nephrolithiasis Code(s): N20.0 - CALCULUS OF KIDNEY Status: Acute Plan: s/p stent placement. (4) High anion gap metabolic acidosis Code(s): E87.2 - ACIDOSIS Status: Acute Plan: Improving. <Jayna Novak - Last Filed: 09/13/17 09:59> Attending Addendum - Attending Addendum Date/Time: 09/13/17 1041 I personally evaluated the patient and discussed the management with Dr. Novak I agree with the History, Examination, Assessment and Plan documented above with any addition or exceptions noted below.Patient s/p stent placement stable to transfer out [facility]U. <Christiano Hooker - Last Filed: 09/13/17 10:42>
[2017-09-13] MEDS: Ferrous Sulfate 325 MG TAB PO SCH ×3 (09:52→17:06)
[2017-09-13] MEDS ORDERED: Ondansetron ODT 4 MG TAB PO PRN (10:06)
--- NOTE | 2017-09-13 11:48 | PRG ---
DATE OF SERVICE: 09/13/2017 SERVICE: Renal Medicine. SUBJECTIVE: Mr. Clark is a 62-year-old male, who was seen by the Renal Service for his acute kidney injury. Initial imaging showed he had obstructive uropathy. He underwent emergent hemodialy sis yesterday and received a blood transfusion. In addition, the patient underwent operative procedu re - Urology placed a left ureteral stent due to the high-grade obstruction. This morning, this patient is still confused. OBJECTIVE: VITAL SIGNS: Blood pressure is 131/64, heart rate 66, respiratory rate 20, temperature 98.9, pulse o x 99%. GENERAL EXAM: Noted to be awake, confused, not in overt distress. SKIN: Adequate turgor. HEENT: He has a slightly pale conjunctivae. Anicteric sclerae. NECK: No neck mass, no carotid bruits, no JVD. CHEST: No deformities. LUNGS: Decreased breath sounds. HEART: Normal sinus rhythm. No murmur, no gallops, no rubs. ABDOMEN: Globular, soft, nontender, no masses. EXTREMITIES: No edema. Medications of 09/13/2017 were reviewed. LABORATORY DATA: Laboratories of 09/13/2017, white count 8.9, hemoglobin 7.9. Sodium 138, potassium 3.5, chloride 111, carbon dioxide 13, BUN is 59, creatinine 15.79, glucose 75, calcium 7.3, hemoglob in 7.9. ASSESSMENT AND PLAN: 1. Acute kidney injury on top of his chronic renal failure - he may have a superimposed acute kidney injury from obstructive uropathy. I am unclear if he may have underlying chronic renal failure. Pl ease note, this patient has a history of diabetes mellitus. His initial urine showed significant pro teinuria. We may need to check a hepatitis B surface antigen as well as hepatitis C antibody. For t he moment, we will continue supportive care. I plan to do a 3-hour hemodialysis with this patient. We will attempt 1 liter fluid removal. 2. Anemia. Epogen and iron supplementation has been started. We will continue p.r.n. blood transfu franky. 3. Obstructive uropathy, Urology following, status post left ureteral stent placement. Overall, I a gree with current management. We will recheck basic metabolic panel, CBC, intact PTH, and serum phos phorus tomorrow.
--- NOTE | 2017-09-13 12:21 | PRG ---
DATE OF SERVICE: 09/13/2017 SUBJECTIVE: Status post dialysis. Still encephalopathic, but better. He underwent a left retrograd e pyelogram and insertion of left ureteral stent. OBJECTIVE: VITAL SIGNS: His blood pressure is 130/64, sat 98% on room air, respirations 20, temperature 98. CHEST: Decreased breath sounds, no wheezing. CARDIAC: Normal S1 and S2, no gallops. ABDOMEN: Soft. LABORATORY DATA: Creatinine is 15, BUN is 59. White count is 8.9, platelet count is normal. IMPRESSION: Acute renal failure, ureteral stent. PLAN: Continue dialysis, supportive care. We will follow.
--- NOTE | 2017-09-13 12:29 | PRG ---
DATE OF SERVICE: 09/13/2017 SUBJECTIVE: Patient's mental status is normal. He has no complaints at this time. He is receiving hemodialysis at the time of my visit. OBJECTIVE: VITAL SIGNS: Temperature 98.9, pulse 66, blood pressure 131/64. Urine output minimal, estimated 120 mL over the last 12 hours, bloody. ABDOMEN: Soft, nontender, no palpable masses, no peritoneal signs. LABORATORY DATA: Hemoglobin 7.9, hematocrit 23.5, platelets 161, creatinine 15.8. PROCEDURE: Landry catheter hand irrigated with sterile saline. One tiny clot was obtained during irr igation. There were no more clots noted. The catheter was not occluded. IMPRESSION: Poor urine output. He is on hemodialysis. The urine is bloody, but catheter is patent. RECOMMENDATIONS: May hand irrigate Landry catheter as needed. No further urologic recommendations at this time.
[2017-09-13] MEDS: Acetaminophen 325 MG TAB PO PRN (13:49)
[2017-09-14] MEDS: cefTRIAXone\\ROCEPHIN 2 GM in Sodium Chloride 0.9% 100 ML IVPB SCH (03:39)
[2017-09-14 05:48] LABS: Anion Gap 16 mmol/L (10-20); BUN (Urea Nitrogen) 39 mg/dL (8.4-25.7); Calc. Creatinine Clearance 7 mL/min (70-130); Calcium 7.4 mg/dL (7.8-10.44); Carbon Dioxide 18 mmol/L (23-31); Chloride 106 mmol/L (98-107); Estimated GFR-MDRD 5; Glucose 72 mg/dL (80-115); Phosphorus 7.4 mg/dL (2.3-4.7); Potassium 3.2 mmol/L (3.5-5.1); Sodium 137 mmol/L (136-145)
[2017-09-14 06:09] LABS: Band 3 % (5-11); Eosinophils 1 % (0-10); Hemoglobin 7.7 g/dL (14.0-18.0); Lymphocytes 18 % (21-51); MDiff Complete? YES; Mean Corpuscular HGB CONC 32.9 g/dL (32.0-36.0); Mean Corpuscular Hemoglobin 27.9 pg (27.0-31.0); Mean Corpuscular Volume 84.7 fL (78.0-98.0); Mean Platelet Volume 8.4 fL (7.4-10.4); Monocytes 12 % (0-10); Neutrophil 66 % (42-75); PLT Morphology Comment Appears Adequate; Platelet Count 184 thou/uL (130-400); RBC Distribution Width 15.1 % (11.5-14.5); Red Blood Cell (RBC) Count 2.76 mill/uL (4.70-6.10); White Blood Cell (WBC) Count 8.4 thou/uL (4.8-10.8)
--- NOTE | 2017-09-14 06:34 | PDOC.FM ---
- Subjective Subjective: Patient feels better today. Denies nausea, vomiting, and abdominal pain. - Objective MAR Reviewed: Yes Vital Signs & Weight: Vital Signs (12 hours) Temp Pulse Resp BP Pulse Ox 09/14/17 04:22 98.5 F 71 18 141/57 H 96 09/14/17 00:00 98.7 F 70 18 143/71 H 95 09/13/17 20:01 98.9 F 75 18 163/73 H 98 09/13/17 20:00 98.9 F 75 18 98 Weight Admit Weight 67.358 kg Weight 67.1 kg Most Recent Monitor Data Heart Rate from ECG 68 NIBP 144/70 I&O: 09/12/17 09/13/17 09/14/17 06:59 06:59 06:59 Intake Total 300 1566 2220 Output Total 15 120 195 Balance 285 [id number] Result Diagrams: 09/14/17 04:51 09/14/17 04:51 <Jayna Novak - Last Filed: 09/14/17 09:49> - Objective Vital Signs & Weight: Vital Signs (12 hours) Temp Pulse Resp BP Pulse Ox 09/14/17 08:35 98.7 F 82 16 95 09/14/17 08:10 98.7 F 82 16 124/49 L 95 09/14/17 04:22 98.5 F 71 18 141/57 H 96 09/14/17 00:00 98.7 F 70 18 143/71 H 95 Weight Admit Weight 67.358 kg Weight 67.1 kg Most Recent Monitor Data Heart Rate from ECG 68 NIBP 144/70 I&O: 09/13/17 09/14/17 09/15/17 06:59 06:59 06:59 Intake Total 1566 2220 Output Total 120 195 Balance 1446 2024 Result Diagrams: 09/14/17 04:51 09/14/17 04:51 <Christiano Hooker - Last Filed: 09/14/17 11:36> Phys Exam - Physical Examination Constitutional: NAD Respiratory: no wheezing Cardiovascular: RRR Gastrointestinal: soft, non-tender, no distention Musculoskeletal: no edema Neurological: non-focal Psychiatric: normal affect <Jayna Novak - Last Filed: 09/14/17 09:49> Dx/Plan (1) Acute renal failure Status: Acute Plan: Improving s/p dialysis and stent placement. Pt had dialysis yesterday. Will discuss further with nephrology. (2) Sepsis secondary to UTI Code(s): A41.9 - SEPSIS, UNSPECIFIED ORGANISM; N39.0 - URINARY TRACT INFECTION, SITE NOT SPECIFIED Status: Resolved Plan: Resolved. Vitals stable. patient remains afebrile. Blood cultures negative after 48 hours. Initial urine cultures negative after 48 hours. Urine from kidney aspirate shows no organisms on gram stain. Consider de-escalating antibiotic to PO regimen. (3) Bilateral nephrolithiasis Code(s): N20.0 - CALCULUS OF KIDNEY Status: Suspected Plan: s/p stent placement. (4) High anion gap metabolic acidosis Code(s): E87.2 - ACIDOSIS Status: Acute Plan: Improving. (5) Secondary hyperparathyroidism (of renal origin) Code(s): N25.81 - SECONDARY HYPERPARATHYROIDISM OF RENAL ORIGIN Status: Suspected <Jayna Novak - Last Filed: 09/14/17 09:49> Attending Addendum - Attending Addendum Date/Time: 09/14/17 0004 I personally evaluated the patient and discussed the management with Dr. Novak I agree with the History, Examination, Assessment and Plan documented above with any addition or exceptions noted below.Patient remains with low urinary output will have dialysis today Appreciate recommendations from Nephrology. <Christiano Hooker - Last Filed: 09/14/17 11:36>
[2017-09-14] MEDS: Ferrous Sulfate 325 MG TAB PO SCH ×2 (08:29→18:29)
[2017-09-14] MEDS: Sodium Chloride 0.9% 1,000 ML IV SCH ×2 (08:31→20:33)
[2017-09-14] MEDS: Acetaminophen 325 MG TAB PO PRN ×2 (08:34→18:03)
[2017-09-14] MEDS ORDERED: Heparin 1,000 UNITS/ML VIAL ONE ×2 (11:11)
[2017-09-14 12:08] LABS: Troponin I 0.039 ng/mL (< 0.028)
--- NOTE | 2017-09-14 12:40 | PRG ---
DATE OF SERVICE: 09/14/2017 SUBJECTIVE: This morning, he is awake, alert, responsive. OBJECTIVE: VITAL SIGNS: Sats are 90% on room air, temperature 98, blood pressure 124/49, pulse 82. GENERAL: He is awake, responsive. CHEST: Decreased breath sounds, no wheezing. CARDIAC: Normal S1 and S2, no gallops. ABDOMEN: Soft, no masses. LABORATORY DATA: His creatinine is 10 and BUN is 39. H and H 7 and 24. IMPRESSION: Chronic renal failure, on dialysis. Pulmonary pack, he appears to be stable. Pulmonary Critical Care will follow at a distance. Please call if pulmonary issues.
--- NOTE | 2017-09-14 14:36 | PRG ---
DATE OF SERVICE: 09/14/2017 SERVICE: Renal Medicine. SUBJECTIVE: Mr. Clark is a 62-year-old male who was seen by the Renal Service for his acute kidney injury on top of his? chronic renal failure. He was also noted to have obstructive uropathy. He underwent a left ureteral stent placement done by his urologist. This morning he was noted to be more awake and alert. He has received 2 consecutive days of dialysis. My plan is to do a 4-hour he modialysis with this patient today. No other complaints. PHYSICAL EXAMINATION: VITAL SIGNS: Blood pressure 162/68, heart rate 70, respiratory rate 16, temperature 98.2, pulse ox 9 5%. GENERAL: Noted to be awake, alert, comfortable, not in distress. SKIN: Adequate turgor. HEENT: He has slightly pale conjunctivae, anicteric sclerae. NECK: No neck mass, no carotid bruits, no JVD. CHEST: No deformities. LUNGS: Clear breath sounds. No wheezing, no crackles. HEART: Normal sinus rhythm. No murmur, no gallops or rubs. ABDOMEN: Globular, soft, nontender, no masses. EXTREMITIES: No edema, no deformities. MEDICATIONS: Medications of 09/14/2017 was reviewed. LABORATORY DATA: Laboratories of 09/14/2017; white count 8.4, hemoglobin 7.7. Sodium 137, potassium 3.2, chloride 106, carbon dioxide 18, BUN 39, creatinine 10.95, glucose 72, calcium 7.4, phosphorus 7.4. PTH 291.1. ASSESSMENT AND PLAN: 1. Anemia, continuing weekly Epogen and iron supplementation, p.r.n. blood transfusion. 2. Acute kidney injury/chronic renal failure. Continue hemodialysis regimen. We will plan for a 4- hour hemodialysis today, then place him back on a Friday, , and Friday dialysis regimen. Unclear if he will have significant recovery with this chronic renal failure. 3. Hyperphosphatemia. Start Tums 500 mg tab t.i.d. with meals. 4. Hyperparathyroidism - calcitriol 0.25 mcg tab daily will be started. Overall, I agree with current management.
[2017-09-14 15:42] LABS: Troponin I 0.037 ng/mL (< 0.028)
[2017-09-14] MEDS: Calcium Carbonate 500 MG ChewTAB PO SCH (18:29)
[2017-09-14] MEDS ORDERED: Diazepam 10 MG/2 ML SYRINGE IVP ONE (19:03)
[2017-09-14] MEDS ORDERED: Lorazepam 2 MG/ML VIAL SLOW IVP SCH (20:15)
[2017-09-14] MEDS ORDERED: HYDROcodone/Acetaminophen 5/325 mg Tablet PO PRN (20:27)
[2017-09-15] MEDS: Sodium Chloride 0.9% 1,000 ML IV SCH (02:05)
[2017-09-15] MEDS: cefTRIAXone\\ROCEPHIN 2 GM in Sodium Chloride 0.9% 100 ML IVPB SCH (02:05)
[2017-09-15 04:26] LABS: #Basophils 0.1 thou/uL (0.0-0.2); #Eosinphils 0.2 thou/uL (0.0-0.7); #Lymphocytes 1.5 thou/uL (1.20-3.40); #Monocytes 1.5 thou/uL (0.11-0.59); #Neutrophils 7.4 thou/uL (1.40-6.50); %Basophils 0.6 % (0.0-1.0); %Eosinophils 1.8 % (0.0-10.0); %Lymphocytes 13.9 % (21.0-51.0); %Monocytes 14.2 % (0.0-10.0); %Neutrophils 69.4 % (42.0-75.0); Hemoglobin 7.8 g/dL (14.0-18.0); Mean Corpuscular Hemoglobin 27.9 pg (27.0-31.0); Mean Corpuscular Volume 84.8 fL (78.0-98.0); Mean Platelet Volume 8.3 fL (7.4-10.4); Platelet Count 208 thou/uL (130-400); White Blood Cell (WBC) Count 10.6 thou/uL (4.8-10.8)
[2017-09-15 04:48] LABS: Anion Gap 13 mmol/L (10-20); BUN (Urea Nitrogen) 26 mg/dL (8.4-25.7); Calc. Creatinine Clearance 10 mL/min (70-130); Calcium 7.6 mg/dL (7.8-10.44); Carbon Dioxide 24 mmol/L (23-31); Chloride 103 mmol/L (98-107); Estimated GFR-MDRD 8; Glucose 113 mg/dL (80-115); Potassium 3.1 mmol/L (3.5-5.1); Sodium 137 mmol/L (136-145)
--- NOTE | 2017-09-15 08:36 | PRG ---
DATE OF SERVICE: 09/15/2017 CHIEF COMPLAINT: Lower back pain. OBJECTIVE: VITAL SIGNS: Temperature 98.4, pulse 78, blood pressure 165/80. GENITOURINARY: Urine output 120 mL on 09/13/2017. CHEST: Clear. ABDOMEN: Soft, nontender, no palpable masses. No peritoneal signs. LABORATORY DATA: Hemoglobin 7.7, hematocrit 23.7. Chemistry: Creatinine 7.19. IMPRESSION: Mr. Clark seems to be improving. He does have some low back pain now. His urine output has increased slightly and the hematuria has improved, although still present. The catheter was not irrigated today as the hematuria is less significant. RECOMMENDATIONS: No further recommendations at this time.
--- NOTE | 2017-09-15 09:15 | PDOC.FM ---
- Subjective Subjective: Patient says he is feeling well. 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 Denies any chest, back or abdominal pain. - Objective MAR Reviewed: Yes Vital Signs & Weight: Vital Signs (12 hours) Temp Pulse Resp BP Pulse Ox 09/15/17 07:50 99.4 F 93 20 128/76 93 L 09/15/17 03:57 96 Weight Admit Weight 67.358 kg Weight 67.1 kg Most Recent Monitor Data Heart Rate from ECG 68 NIBP 144/70 I&O: 09/14/17 09/15/17 09/16/17 06:59 06:59 06:59 Intake Total 2220 1637 Output Total 195 2400 Balance 2024 Result Diagrams: 09/15/17 03:57 09/15/17 03:57 EKG Reviewed by me: Yes Radiology Reviewed by me: Yes Phys Exam - Physical Examination Constitutional: NAD HEENT: PERRLA Neck: full ROM Respiratory: no wheezing, no rales, clear to auscultation bilateral Cardiovascular: RRR, no significant murmur Gastrointestinal: soft, non-tender, no distention Musculoskeletal: no edema Neurological: moves all 4 limbs Psychiatric: normal affect, A&O x 3 Skin: no rash Dx/Plan (1) Acute renal failure Status: Acute Plan: BUN/Cr continues to improve. Patient has been dialyzed everyday since admission. Per nephrology will start a ., ., Friday dialysis schedule. Will discuss with case management about getting this set up on an outpatient basis as patient is uninsured & undocumented. (2) Urinary tract obstruction by kidney stone Code(s): N20.0 - CALCULUS OF KIDNEY; N13.8 - OTHER OBSTRUCTIVE AND REFLUX UROPATHY Status: Acute Plan: Day 4 s/p stent placement. (3) Sepsis secondary to UTI Code(s): A41.9 - SEPSIS, UNSPECIFIED ORGANISM; N39.0 - URINARY TRACT INFECTION, SITE NOT SPECIFIED Status: Resolved Plan: Resolved as patient has been hemodynamically stable & afebrile for the last 48 hours. Will stop IVFs & switch to renally dosed PO levaquin & give 500mg PO starting tomorrow and then 250mg Q48H until a 28 day course has been completed. (4) UTI (urinary tract infection) Status: Acute Plan: Urine culture negative but will change Abx treatment as outlined above. (5) High anion gap metabolic acidosis Code(s): E87.2 - ACIDOSIS Status: Acute Plan: Resolved. AG of 10 this AM. Will continue to monitor. (6) Hyperkalemia Code(s): E87.5 - HYPERKALEMIA Status: Acute Plan: Resolved. K was 3.1 this AM. Will order 40mEq PO once to replace. (7) Normocytic anemia Code(s): D64.9 - ANEMIA, UNSPECIFIED Status: Chronic Plan: Hgb down to 7.8 today but stable compared to yesterday. Given that patient is hemodynamically stable will hold off transfusing for now. Will continue to monitor. (8) Secondary hyperparathyroidism (of renal origin) Code(s): N25.81 - SECONDARY HYPERPARATHYROIDISM OF RENAL ORIGIN Status: Suspected Plan: Likely 2/2 ARF. Will continue with calcitriol per nephrology's recommendation. (9) Hyperphosphatemia Code(s): E83.39 - OTHER DISORDERS OF PHOSPHORUS METABOLISM Status: Acute Plan: Has improved. Was down to 7.4 yesterday. Will continue with tums PO per nephrology's recommendation. Will recheck with AM labs tomorrow. (10) Hyperchloremia Code(s): E87.8 - OTH DISORDERS OF ELECTROLYTE AND FLUID BALANCE, NEC Status: Acute Plan: Resolved as chloride was 103 this AM. Will continue to monitor. (11) Diabetes mellitus Code(s): E11.9 - TYPE 2 DIABETES MELLITUS WITHOUT COMPLICATIONS Status: Chronic Qualifiers: Diabetes mellitus type: type 2 Plan: A1c on admission was 5.8. Patient denies being on any diabetes medications at home. BG has been well controlled. Will continue to monitor. (12) Carpal tunnel syndrome of right wrist Code(s): G56.01 - CARPAL TUNNEL SYNDROME, RIGHT UPPER LIMB Status: Acute Plan: Will order splint for right wrist.
[2017-09-15] MEDS: Calcitriol 0.25 MCG CAP PO SCH (09:38)
[2017-09-15] MEDS: Ferrous Sulfate 325 MG TAB PO SCH ×2 (09:38→16:50)
[2017-09-15] MEDS: Calcium Carbonate 500 MG ChewTAB PO SCH ×3 (09:38→16:50)
[2017-09-15] MEDS ORDERED: Potassium Chloride 20 MEQ TAB PO SCH (11:15)
--- NOTE | 2017-09-15 11:22 | PRG ---
DATE OF SERVICE: 09/15/2017 SUBJECTIVE: The patient did well over the weekend. Dr. iGbson saw him and irrigated his bladder to ensure that there was no concern for clots as it did look a little bloody, but he was just not making any significant amount of urine. This has picked up slightly. He has no complaints. He feels significantly better than when he came in. He denies having any significant heat stroke type episode or decrease in p.o. intake prior to his hospitalization , he just admits to overall not feeling well and a significant headache that is now better. OBJECTIVE: VITAL SIGNS: His vitals have been stable. He does have a temperature of 99.4, satting 93% on room air, blood pressure 128/76, heart rate 93. He put out about 400 over the last 24 hours and although there is minimal in the tubing, it is clearing. LABORATORY DATA: Reveal a stable anemia and a creatinine that has come down to 7.19, but this seems to be all related to dialysis and is concerning that it is not improved more so given his resuscitation and stent placement. Microbiology shows no growth from the urine upon admission and no growth from that kidney aspirate that had no organisms as well. ASSESSMENT: We have a 62-year-old male admitted with acute renal failure on top of presumably chronic renal insufficiency with an obstructing left stone, status post urgent stent on 09/12/2017. He has significant volume stone disease bilaterally. We reviewed how the stent is temporary and cannot be removed until he has definitive stone treatment. ESWL and PCNL reviewed today. I will also go ahead and order a plain x-ray to evaluate whether a significant stone volume is visible and if not, then alkalinization may be helpful. But if he is not making a significant amount of urine this is not going to adequately alkalinize the pH surrounding the stones. We also reviewed how the Landry catheter can come out and he can void, but it is very important to keep tabs on his I's and O's. I will order for the catheter to be removed. COLEEN
[2017-09-15 12:38] VITALS: BMI 23.8
--- NOTE | 2017-09-15 14:05 | RAD ---
SUPINE ABDOMEN: INDICATION: Urinary tract calculi. COMPARISON: Correlation is made to CT 09/12/17. FINDINGS/IMPRESSION: There is a double pigtail left ureteral stent noted. There are several calcifications overlying the right kidney which correspond to the renal calcifications noted on recent CT. Left kidney is obscure d by overlying bowel content. There is a small calcified density adjacent to the upper pigtail which may represent the previously described ureteral calcification on the left. Calcifications overlying the peripheral left kidney correspond to the calcifications noted on recent CT. No other definite c alcifications seen along the course of the stent. POS: [facility]
[2017-09-15] MEDS: Acetaminophen 325 MG TAB PO PRN (15:09)
--- NOTE | 2017-09-16 05:31 | PDOC.FM ---
- Subjective Subjective: Patient very talkative and alert this AM. Per nurse he slept all through the night and did not require any pain medicine. Patient denies an chest or abdominal pain but does endorse some dysuria and difficulty urinating. He also reports watery diarrhea associated with drinking dark fluids like coke and coffee. He says he has similar problems like this while at home as well. Denies any hematochezia or melena. Says his son is bringing his home medications that were prescribed by another doctor to the hospital today. - Objective MAR Reviewed: Yes Vital Signs & Weight: Vital Signs (12 hours) Temp Pulse Resp BP Pulse Ox 09/15/17 20:00 98.1 F 67 20 97 09/15/17 19:10 98.1 F 67 20 162/79 H 97 Weight Admit Weight 67.358 kg Weight 67.1 kg Most Recent Monitor Data Heart Rate from ECG 68 NIBP 144/70 I&O: 09/14/17 09/15/17 09/16/17 06:59 06:59 06:59 Intake Total 2220 1637 1320 Output Total 195 2400 45 Balance 2024 -3 1275 Result Diagrams: 09/16/17 04:51 09/16/17 04:51 EKG Reviewed by me: Yes Radiology Reviewed by me: Yes Radiology: Abdominal x-ray significant for several calcifications seen in B/L kidneys Phys Exam - Physical Examination HEENT: PERRLA Neck: full ROM Respiratory: no wheezing, no rales, clear to auscultation bilateral Cardiovascular: RRR, no significant murmur Musculoskeletal: no edema Neurological: non-focal, moves all 4 limbs Psychiatric: normal affect, A&O x 3 Skin: no rash Dx/Plan (1) Acute renal failure Status: Acute Plan: - BUN/Cr slightly worse compared to yesterday @ 34 & 8.70. However, patient has been dialyzed every day since admission except for yesterday. Per nephrology will follow a ., ., Friday dialysis schedule & will therefore be dialyzed today. - Waiting to hear back from case management regarding patient's ability to be able to get dialysis on outpatient basis. - Will also continue to monitor Is & O's. Patient had only 50mL UO overnight. Encouraged adequate oral hydration. (2) Urinary tract obstruction by kidney stone Code(s): N20.0 - CALCULUS OF KIDNEY; N13.8 - OTHER OBSTRUCTIVE AND REFLUX UROPATHY Status: Acute Plan: - Day 4 s/p stent placement. - Urology following patient. (3) Bilateral nephrolithiasis Code(s): N20.0 - CALCULUS OF KIDNEY Status: Acute Plan: - Aware, day #4 s/p L UPJ stent placement. - Per Urology patient has a significant stone burden & stent cannot be removed until all stones are addressed. Landry catheter was removed yesterday and plain x -ray was significant for several calcifications seen in B/L kidneys. Recommended urine alkalinazation to decrease stone burden but is aware patient may not be able to produce enough urine for this method to be effective due to his severe ARF. Will continue to monitor strict I's & O's & follow urology's recommendation regarding stent removal and ability to discharge. (4) Sepsis secondary to UTI Code(s): A41.9 - SEPSIS, UNSPECIFIED ORGANISM; N39.0 - URINARY TRACT INFECTION, SITE NOT SPECIFIED Status: Resolved Plan: Resolved as patient has been hemodynamically stable & has been afebrile for the last 48 hours. - Stopped IVFs yesterday as patient is able to hydrate adequately PO. - Will get first dose of levaquin 500mg PO today and will then continue on 250mg PO Q48H through 10/10/17. (5) UTI (urinary tract infection) Status: Acute Plan: Urine culture negative but will change Abx treatment as outlined above under sepsis. (6) High anion gap metabolic acidosis Code(s): E87.2 - ACIDOSIS Status: Acute Plan: Resolved. Will continue to monitor with AM BMPs. (7) Hyperkalemia Code(s): E87.5 - HYPERKALEMIA Status: Acute Plan: Resolved. K was 3.1 this AM. (8) Normocytic anemia Code(s): D64.9 - ANEMIA, UNSPECIFIED Status: Chronic Plan: Hgb continues to trend down. It is 7.5 today but patient remains hemodynamically stable. Will hold off transfusing for now but will continue to monitor. (9) Secondary hyperparathyroidism (of renal origin) Code(s): N25.81 - SECONDARY HYPERPARATHYROIDISM OF RENAL ORIGIN Status: Suspected Plan: Likely 2/2 ARF. Will continue with calcitriol per nephrology's recommendation. (10) Hyperphosphatemia Code(s): E83.39 - OTHER DISORDERS OF PHOSPHORUS METABOLISM Status: Acute Plan: Resolved. AM level was 4.5. (11) Hyperchloremia Code(s): E87.8 - OTH DISORDERS OF ELECTROLYTE AND FLUID BALANCE, NEC Status: Acute Plan: Resolved. Will continue to monitor. (12) Diabetes mellitus Code(s): E11.9 - TYPE 2 DIABETES MELLITUS WITHOUT COMPLICATIONS Status: Chronic Qualifiers: Diabetes mellitus type: type 2 Plan: A1c on admission was 5.8. Patient denies being on any diabetes medications at home. BG has been well controlled. Will continue to monitor. (13) Carpal tunnel syndrome of right wrist Code(s): G56.01 - CARPAL TUNNEL SYNDROME, RIGHT UPPER LIMB Status: Acute Plan: Will order splint for right wrist. (14) Hypokalemia Code(s): E87.6 - HYPOKALEMIA Status: Acute Plan: K was 3.3 this AM. Will order 40mEq PO once to replace as patient will also be dialyzed today.
[2017-09-16 05:41] LABS: #Eosinphils 0.4 thou/uL (0.0-0.7); #Lymphocytes 1.5 thou/uL (1.20-3.40); #Monocytes 1.2 thou/uL (0.11-0.59); #Neutrophils 6.6 thou/uL (1.40-6.50); %Basophils 0.4 % (0.0-1.0); %Eosinophils 4.3 % (0.0-10.0); %Lymphocytes 15.7 % (21.0-51.0); %Monocytes 11.8 % (0.0-10.0); %Neutrophils 67.8 % (42.0-75.0); Hemoglobin 7.5 g/dL (14.0-18.0); Mean Corpuscular HGB CONC 32.6 g/dL (32.0-36.0); Mean Corpuscular Volume 85.8 fL (78.0-98.0); Mean Platelet Volume 8.1 fL (7.4-10.4); Platelet Count 237 thou/uL (130-400); RBC Distribution Width 14.9 % (11.5-14.5); Red Blood Cell (RBC) Count 2.69 mill/uL (4.70-6.10); White Blood Cell (WBC) Count 9.8 thou/uL (4.8-10.8)
[2017-09-16 05:55] LABS: Anion Gap 12 mmol/L (10-20); BUN (Urea Nitrogen) 34 mg/dL (8.4-25.7); Calc. Creatinine Clearance 8 mL/min (70-130); Calcium 7.9 mg/dL (7.8-10.44); Carbon Dioxide 21 mmol/L (23-31); Chloride 107 mmol/L (98-107); Estimated GFR-MDRD 6; Glucose 107 mg/dL (80-115); Potassium 3.3 mmol/L (3.5-5.1); Sodium 137 mmol/L (136-145)
--- NOTE | 2017-09-16 08:01 | ADD-PRG ---
DATE OF SERVICE: 09/15/2017 This is an addendum to the note of Dr. Roslyn Argueta. Mr. Clark was admitted with a urinary tract infection and obstructing ureteral stone. He has been see n by Urology and a stent placed. He was also seen by Nephrology for acute renal failure and is on di alysis. From a clinical standpoint, he is much improved and will be discharged on oral antibiotics t o complete 1 month therapy for what is likely a prostate infection. We will of course defer to the j udent of Urology.
[2017-09-16] MEDS: Calcitriol 0.25 MCG CAP PO SCH (08:37)
[2017-09-16] MEDS: Calcium Carbonate 500 MG ChewTAB PO SCH ×3 (08:37→17:56)
[2017-09-16] MEDS ORDERED: Potassium Chloride 20 MEQ TAB PO SCH (08:45)
[2017-09-16] MEDS ORDERED: Heparin 10,000 UNITS/ 10 ML VIAL ONE (09:00)
[2017-09-16] MEDS: Ferrous Sulfate 325 MG TAB PO SCH ×2 (09:16→17:56)
[2017-09-16] MEDS: Acetaminophen 325 MG TAB PO PRN (09:17)
--- NOTE | 2017-09-16 09:48 | PRG ---
DATE OF SERVICE: 09/16/2017 SERVICE: Renal Medicine. SUBJECTIVE: Mr. Clark is a 62-year-old male who was seen by the Renal Service for his acute kidney injury on top of his chronic renal failure. He remains unimproved. He is currently on mainte nance hemodialysis. I have scheduled him for another dialytic intervention. I feel that this patien t most likely has ESRD. No new complaints today. He is actually feeling better. Please note, he did receive a left ureteral stent placement by Urology due to obstruction. No other complaints today. PHYSICAL EXAMINATION: VITAL SIGNS: Blood pressure 178/81, heart rate 66, respiratory rate 18, temperature 98.2, pulse ox 9 9%. GENERAL: Awake, sitting comfortable, not in distress. SKIN: Adequate turgor. HEENT: Slightly pale conjunctivae, anicteric sclerae. NECK: No neck mass, no carotid bruits, no JVD. CHEST: No deformities. LUNGS: Decreased breath sounds. HEART: Normal sinus rhythm. No murmur, no gallops, no rubs. ABDOMEN: Globular, soft, nontender, no masses. EXTREMITIES: No edema, no deformities. MEDICATIONS: Of 09/16/2017 was reviewed. LABORATORY DATA: Of 09/16/2017, white count 9.8, hemoglobin 7.5. Sodium 137, potassium 3.3, chlorid e 107, carbon dioxide 21, BUN 34, creatinine 8.7, calcium 7.9, phosphorus 4.5. ASSESSMENT AND PLAN: 1. Acute kidney injury/chronic renal failure - continuing 3 times a week hemodialysis. He is schedu led for a 4-hour dialysis today. I feel that this patient may have end-stage renal disease. He does have proteinuria and longstanding history of diabetes mellitus and diabetic nephropathy is a possibi lity for his cause of his end-stage renal disease. Continue supportive care. Awaiting outpatient di alysis placement. 2. Anemia, continuing weekly Epogen and iron supplementation. 3. Secondary hyperparathyroidism. Calcitriol has been started. 4. Hyperphosphatemia. Patient started on Tums. Agree with current management.
--- NOTE | 2017-09-16 10:01 | PRG ---
DATE OF SERVICE: 09/16/2017 SUBJECTIVE: The patient has done well overnight and has no complaints. He is walking in the hallway freely and well while pushing his IV pole. OBJECTIVE: His vitals have been stable. He has had some hypertension. He has voided some, but not a lot. Yesterday he was scanned for a minimal result after voiding only 50 mL given he is just not m aking significant urine. LABORATORY DATA: Reveal a creatinine which is at 8, it does not seem to be coming down and it is unl ikely that he will recover full renal function after this insult as it is also doubtful that he had f ull renal function prior to this admission. KUB revealed stones are visible, so would not be amenable to alkalinization. ASSESSMENT AND PLAN: We have a 62-year-old gentleman admitted with acute renal failure and obstructi ng left ureteral stone, status post stent on antibiotics for UTI, but the urine above the stone was n ot infected. His renal function is not recovering despite resuscitation and dialysis. I would recom mend continuing antibiotics until we can get the ureteral or UPJ stone treated. I am not sure there is much benefit to treating the rest of the stones as long as his urine stays sterile and those stone s are not colonized. For this reason, I would like to treat his UPJ stone within the next month so a s to get him off antibiotics and get the stent out. We reviewed this today. If he does go home, I kurt curran send him home on antibiotics until he can follow up with me in the office for definitive stone t herapy. That would be an outpatient procedure.
--- NOTE | 2017-09-16 13:49 | ADD-PRG ---
DATE OF SERVICE: 09/16/2017 This is an addendum to the note of Dr. Roslyn Argueta. Mr. Clark is sitting quietly in bed in no distress. Dr. Abdul has made recommendations and we apprec iate her input. Clinically, the patient remains improved and we are awaiting plans for discharge to include ongoing dialysis. He can also follow up with Dr. Abdul as an outpatient.
--- NOTE | 2017-09-16 18:10 | ULT ---
VENOUS DUPLEX SONOGRAM FOR VEIN MAPPING BILATERAL UPPER EXTREMITY 09/16/17 HISTORY: Renal failure. Need for correction hemodialysis access. FINDINGS: Good color and spectral doppler flow are present throughout the deep venous structures of each upper extremity. Each internal jugular vein, subclavian vein, axillary, and brachial vein are patent. Measu rements are as follows: RIGHT UPPER EXTREMITY BRACHIAL ARTERY: 5 mm RADIAL ARTERY: 2 mm ULNAR ARTERY: 2 mm CEPHALIC VEIN Proximal Humerus: 3 mm Mid Humerus: 4 mm Distal Humerus: 5 mm Antecubital Fossa: 7 mm Proximal Forearm: 3 mm Mid Forearm: 2 mm Distal Forearm: 3 mm BASILIC VEIN Proximal Humerus: 8 mm Mid Humerus: 6 mm Distal Humerus: 5 mm Antecubital Fossa: 6 mm Proximal Forearm: 2 mm Mid Forearm: 2 mm Distal Forearm: 1 mm LEFT UPPER EXTREMITY BRACHIAL ARTERY: 5 mm RADIAL ARTERY: 2 mm ULNAR ARTERY: 2 mm CEPHALIC VEIN Proximal Humerus: 5 mm Mid Humerus: 4 mm Distal Humerus: 4 mm Antecubital Fossa: 4 mm Proximal Forearm: 2 mm Mid Forearm: 2 mm Distal Forearm: 2 mm BASILIC VEIN Proximal Humerus: 4 mm Mid Humerus: 5 mm Distal Humerus: 5 mm Antecubital Fossa: 4 mm Proximal Forearm: 2 mm Mid Forearm: 1 mm Distal Forearm: 2 mm IMPRESSION: Patent vascular structures throughout each upper extremity, with venous measurements as detailed dilip bhardwaj. POS: [facility]
--- NOTE | 2017-09-17 05:43 | PDOC.FM ---
- Subjective Subjective: NAEO. Patient denies any pain except when trying to urinate. Reports no urine production overnight but is still in ARF and was dialyzed yesterday. Is aware of the plan to place a dialysis graft on Thrday and is ok with this. - Objective MAR Reviewed: Yes Vital Signs & Weight: Vital Signs (12 hours) Temp Pulse Resp BP Pulse Ox 09/16/17 20:00 98.6 F 70 18 97 09/16/17 19:36 98.6 F 70 18 145/68 H 97 Weight Admit Weight 67.358 kg Weight 67.1 kg Most Recent Monitor Data Heart Rate from ECG 68 NIBP 144/70 I&O: 09/15/17 09/16/17 09/17/17 06:59 06:59 06:59 Intake Total 1637 1450 760 Output Total 2400 95 0 Balance -763 1355 760 Result Diagrams: 09/17/17 04:21 09/17/17 04:21 EKG Reviewed by me: Yes Radiology Reviewed by me: Yes Radiology: B/L upper extremity U/S to evaluate vasculature for dialysis catheter placement showed patent vascular structures throughout in both UEs.. Phys Exam - Physical Examination Constitutional: NAD HEENT: PERRLA Respiratory: no wheezing, no rales, clear to auscultation bilateral Cardiovascular: RRR, no significant murmur Musculoskeletal: no edema Neurological: moves all 4 limbs Psychiatric: normal affect, A&O x 3 Dx/Plan (1) Acute renal failure Status: Acute Plan: - BUN/Cr slightly better compared to yesterday @ 25/7.26 as patient was dialyzed yesterday. - Per nephrology will follow a ., ., Friday dialysis schedule following discharge pending outpatient dialysis can be set up. However, patient is undocumented and uninsured so this may not be possible. If no dialysis placement can be achieved patient will be instructed to return to the ED for dialysis Q5 days or so. - Was evaluated yesterday for dialysis graft placement and plan is to have the graft placed morning. - Will also continue to monitor Is & O's. Patient had no UO overnight. Encouraged adequate oral hydration but it is quite possible that he will be remain anuric as his kidney function is still in ARF range. - Possibly discharge Thrusday following dialysis graft placement & dialysis. (2) Urinary tract obstruction by kidney stone Code(s): N20.0 - CALCULUS OF KIDNEY; N13.8 - OTHER OBSTRUCTIVE AND REFLUX UROPATHY Status: Acute Plan: - Day 5 s/p stent placement. - Urology says it is ok to discharge with stent still in place but recommends continuing PO Abx until pt can f/u with them outpatient to address his remaining stones and remove the stent. (3) Bilateral nephrolithiasis Code(s): N20.0 - CALCULUS OF KIDNEY Status: Acute Plan: - Aware, day #5 s/p L UPJ stent placement. - Will instruct patient to follow up with Urology within 1 month following discharge for outpatient treatment per their recommendation. (4) Sepsis secondary to UTI Code(s): A41.9 - SEPSIS, UNSPECIFIED ORGANISM; N39.0 - URINARY TRACT INFECTION, SITE NOT SPECIFIED Status: Resolved Plan: Resolved as patient remains hemodynamically stable & afebrile with negative blood and urine Cxs. (5) UTI (urinary tract infection) Status: Acute Plan: Urine culture negative but will continue Levaquin 250mg PO Q48h through 10/10 as infection was likely related to prostate and urology would like him to remain on abx until pt can follow-up with them. (6) High anion gap metabolic acidosis Code(s): E87.2 - ACIDOSIS Status: Acute Plan: Resolved. (7) Hyperkalemia Code(s): E87.5 - HYPERKALEMIA Status: Acute Plan: Resolved. (8) Normocytic anemia Code(s): D64.9 - ANEMIA, UNSPECIFIED Status: Chronic Plan: - Hgb continues to trend down but patient remains hemodynamically stable. - Will continue with ferrous sulfate & Procrit per nephrology's recommendation. - Will hold off transfusing but will recommend outpatient monitoring with nephrology for this as it is likely 2/2 ARF/CKD. (9) Secondary hyperparathyroidism (of renal origin) Code(s): N25.81 - SECONDARY HYPERPARATHYROIDISM OF RENAL ORIGIN Status: Suspected Plan: Likely 2/2 ARF. Will continue with calcitriol per nephrology's recommendation. (10) Hyperphosphatemia Code(s): E83.39 - OTHER DISORDERS OF PHOSPHORUS METABOLISM Status: Acute Plan: Resolved. (11) Hyperchloremia Code(s): E87.8 - OTH DISORDERS OF ELECTROLYTE AND FLUID BALANCE, NEC Status: Acute Plan: Slightly up at 108 this AM. Will continue to monitor. (12) Diabetes mellitus Code(s): E11.9 - TYPE 2 DIABETES MELLITUS WITHOUT COMPLICATIONS Status: Chronic Qualifiers: Diabetes mellitus type: type 2 Plan: A1c on admission was 5.8. Patient denies being on any diabetes medications at home. BG has been well controlled. (13) Carpal tunnel syndrome of right wrist Code(s): G56.01 - CARPAL TUNNEL SYNDROME, RIGHT UPPER LIMB Status: Acute Plan: Will order splint for right wrist. (14) Hypokalemia Code(s): E87.6 - HYPOKALEMIA Status: Acute Plan: K was just below normal limits at 3.4 this AM. Will hold of with replacement as patient will not be dialyzed until .
[2017-09-17 05:55] LABS: Anion Gap 11 mmol/L (10-20); BUN (Urea Nitrogen) 25 mg/dL (8.4-25.7); Calc. Creatinine Clearance 10 mL/min (70-130); Carbon Dioxide 23 mmol/L (23-31); Chloride 108 mmol/L (98-107); Estimated GFR-MDRD 8; Glucose 94 mg/dL (80-115); Potassium 3.4 mmol/L (3.5-5.1); Sodium 139 mmol/L (136-145)
[2017-09-17 06:07] LABS: Band 9 % (5-11); Hemoglobin 7.3 g/dL (14.0-18.0); Lymphocytes 25 % (21-51); MDiff Complete? YES; Mean Corpuscular HGB CONC 32.4 g/dL (32.0-36.0); Mean Corpuscular Hemoglobin 28.2 pg (27.0-31.0); Mean Corpuscular Volume 87.1 fL (78.0-98.0); Mean Platelet Volume 8.2 fL (7.4-10.4); Monocytes 6 % (0-10); Neutrophil 57 % (42-75); Nucleated RBC 1 % (0); PLT Morphology Comment Appears Adequate; Platelet Count 254 thou/uL (130-400); RBC Distribution Width 14.8 % (11.5-14.5); Red Blood Cell (RBC) Count 2.59 mill/uL (4.70-6.10); White Blood Cell (WBC) Count 8.1 thou/uL (4.8-10.8)
--- NOTE | 2017-09-17 06:57 | CON ---
DATE OF CONSULTATION: 09/16/2017 REASON FOR CONSULTATION: Renal failure. HISTORY: Mr. Clark is a 62-year-old man who presented to the hospital in acute renal failure who pres ented after a syncopal episode. He was apparently confused and had been complaining of a headache an d back pain. He had apparently been ill and weak for about a week before coming into the emergency r oom and had decreased urine output. He was started on hemodialysis via a temporary femoral catheter and has been tolerating this fairly well, but is still oliguric and Dr. Yates does not think that his r enal failure is going to resolve. Dr. Abdul of Urology has been involved in his care because he was found to have an obstructing stone, but there was no evidence of infection above the obstruction. H e does have a stent in place, but again his renal failure has not resolved. Dr. Yates now suspects carrington t he likely had chronic renal disease due to his diabetes and the acute insult placed him in end-stag e renal failure. Since he has not been able to be taken off hemodialysis placement of a fistula and a tunneled-hemodialysis catheter has been requested. The patient states that he is feeling better si nce his admission. He denies any problems breathing and has not had any fevers or chills. 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 PAST SURGICAL HISTORY: Left fourth toe amputation and back surgery. FAMILY HISTORY: Positive for diabetes. SOCIAL HISTORY: Alcohol consumption, but no history of alcohol abuse and no history of tobacco or dr ug abuse. REVIEW OF SYSTEMS: Ten-system review of systems negative except per HPI. PHYSICAL EXAMINATION: VITAL SIGNS: The patient has been afebrile throughout his hospital stay. Heart rate 70, respiration s 18, 99% saturated on room air, blood pressure 151/85. GENERAL: Reveals a healthy-appearing man in no acute distress. I examined him in the dialysis clini c as he was on hemodialysis and he was tolerating this well. He is not jaundiced or icteric. He is not septic or toxic in appearance. HEENT: Unremarkable. NECK: Supple, without lymphadenopathy or thyroid nodules. HEART: Regular in its rate and rhythm without murmurs, rubs, or gallops. LUNGS: Clear to auscultation bilaterally. ABDOMEN: Soft, nontender, nondistended, without palpable masses or hernia. He has a femoral hemodia lysis catheter in place. EXTREMITIES: He has good caliber cephalic and antecubital veins bilaterally. He does have an IV in his right cephalic mid forearm vein which I have requested the nurses move to his hand. He also has some blood draws from the antecubital fossa on the left and I have requested that he receive no more IV or lab draws on the left. He is right handed with ulnar dominant filling on Gallito's testing. No peripheral edema healed amputation site on the left foot. NEUROLOGIC: No focal deficits. PSYCHIATRIC: Alert, oriented, and appropriate, answering questions appropriately with the aid of a [facility] modeling manager. LABORATORY DATA: White count of 9.8, hematocrit 23, platelets 237,000. Potassium 3.3, BUN 34, creat inine 8.7, glucose 103 to 189. Urine and blood cultures are all negative. IMAGING: Bilateral upper extremity ultrasounds reveals patent internal jugular, subclavian, axillary , and brachial veins and good caliber basilic and cephalic veins bilaterally. ASSESSMENT: End-stage renal failure, likely acute on chronic. Dr. Yates does not expect his renal fun ction to recover and has recommended ongoing hemodialysis. A tunneled hemodialysis catheter and supe rficial have been requested. Since the patient is right-handed and the cephalic veins on the left ap peared to be of good caliber and quality. We will plan on a left AV fistula and tunneled hemodialysi s catheter placement on . The OR is running a very limited staff tomorrow due to the holiday and he has a femoral catheter in place which is functioning well. The procedure of tunneled hemodia lysis catheter placement and AV fistula were discussed with the patient with the aid of an interprete r. The inherent risks of the operations were discussed. These include but are not limited to bleedi ng, infection, risks of anesthesia, hemothorax, pneumothorax, failure of the fistula to develop and a rterial steal. He understands and accepts these risks and wishes to proceed and I have placed him on the schedule for morning. All of his questions were answered and his niece was also contac norm at his request and the plan of care discussed with her.
[2017-09-17] MEDS: Ferrous Sulfate 325 MG TAB PO SCH ×2 (08:30→17:20)
[2017-09-17] MEDS: Calcitriol 0.25 MCG CAP PO SCH (08:30)
[2017-09-17] MEDS: Calcium Carbonate 500 MG ChewTAB PO SCH ×4 (10:24→17:20)
--- NOTE | 2017-09-17 11:29 | PRG ---
DATE OF SERVICE: 09/17/2017 SUBJECTIVE: Mr. Clark is a 62-year-old male who was seen for his acute kidney injury. Due t o his uremic signs and symptoms at that time, hemodialysis was initiated. During this hospitalizatio n a left ureteral stent was placed due to hydronephrosis. He is much improved clinically with dialys is. He is mentating better. PHYSICAL EXAMINATION: VITAL SIGNS: Blood pressure is 145/68, heart rate 70, respiratory rate 18, temperature 98.6, pulse o x 97%. GENERAL: Noted to be awake, alert, ambulatory, comfortable. SKIN: Adequate turgor. HEENT: He has slightly pale conjunctivae, anicteric sclerae. NECK: No neck mass, no carotid bruits, no JVD. CHEST: No deformities. LUNGS: Clear breath sounds. No wheezing, no crackles. HEART: Normal sinus rhythm. No murmur, no gallops or rubs. ABDOMEN: Globular, soft, nontender, no masses. EXTREMITIES: No edema, no deformities. MEDICATIONS: 09/17/2017 - Reviewed. LABORATORY DATA: 09/17/2017 - White count 8.1, hemoglobin 7.3. Sodium 139, potassium 3.4, chloride 108, carbon dioxide 23, BUN 25, creatinine 7.26, glucose 94, calcium 8.0. ASSESSMENT AND PLAN: 1. Chronic renal disease/end-stage renal disease - continuing 3 times a week hemodialysis. Awaiting placement of permanent dialysis catheter and AV fistula. We are awaiting outpatient dialysis placem ent with this patient. 2. Anemia, continuing weekly Epogen, p.r.n. blood transfusion. 3. Renal osteodystrophy currently on calcitriol and on a phosphate binder - Tums 500 mg tab t.i.d. We will recheck a base met and CBC in a.m.
--- NOTE | 2017-09-17 13:57 | ADD-PRG ---
DATE OF SERVICE: 09/17/2017 Please add this as an addendum to the note of Dr. Roslyn Argueta. We are still awaiting final dispos ition on placement for Mr. Clark' dialysis. Clinically, he remains stable, in no acute distress. As an outpatient, he will continue to be followed up by Urology to deal with his excess of stone burden. He will have a portal placed for hemodialysis as an outpatient.
[2017-09-17] MEDS ORDERED: CEFAZOLIN/Water 2 GM/20 ML SYRINGE SLOW IVP SCH (20:45)
[2017-09-18 04:49] LABS: #Basophils 0.1 thou/uL (0.0-0.2); #Eosinphils 0.4 thou/uL (0.0-0.7); #Lymphocytes 1.8 thou/uL (1.20-3.40); #Monocytes 0.8 thou/uL (0.11-0.59); #Neutrophils 5.9 thou/uL (1.40-6.50); %Basophils 0.7 % (0.0-1.0); %Eosinophils 4.4 % (0.0-10.0); %Monocytes 9.1 % (0.0-10.0); %Neutrophils 65.9 % (42.0-75.0); Hemoglobin 7.3 g/dL (14.0-18.0); Mean Corpuscular HGB CONC 32.9 g/dL (32.0-36.0); Mean Corpuscular Hemoglobin 28.4 pg (27.0-31.0); Mean Corpuscular Volume 86.4 fL (78.0-98.0); Mean Platelet Volume 7.7 fL (7.4-10.4); Platelet Count 287 thou/uL (130-400); Red Blood Cell (RBC) Count 2.57 mill/uL (4.70-6.10)
[2017-09-18 05:01] LABS: Anion Gap 12 mmol/L (10-20); BUN (Urea Nitrogen) 36 mg/dL (8.4-25.7); Calc. Creatinine Clearance 8 mL/min (70-130); Calcium 8.5 mg/dL (7.8-10.44); Carbon Dioxide 21 mmol/L (23-31); Chloride 110 mmol/L (98-107); Estimated GFR-MDRD 6; Glucose 134 mg/dL (80-115); Potassium 3.8 mmol/L (3.5-5.1); Sodium 139 mmol/L (136-145)
--- NOTE | 2017-09-18 06:22 | PDOC.FM ---
- Subjective Subjective: NAEO. Patient denies any abdominal or chest pain. Says he feels well. Is eager to get his dialysis catheter in place. - Objective MAR Reviewed: Yes Vital Signs & Weight: Vital Signs (12 hours) Temp Pulse Resp BP Pulse Ox 09/17/17 20:00 98.0 F 71 18 96 09/17/17 19:40 98.0 F 71 18 157/74 H Weight Admit Weight 67.358 kg Weight 67.1 kg Most Recent Monitor Data Heart Rate from ECG 68 NIBP 144/70 I&O: 09/16/17 09/17/17 09/18/17 06:59 06:59 06:59 Intake Total 4771 022 0595 Output Total 95 0 150 Balance 8453 337 9910 Result Diagrams: 09/20/17 03:21 09/20/17 03:21 EKG Reviewed by me: Yes Radiology Reviewed by me: No (No new imaging since yesterday. ) Phys Exam - Physical Examination Constitutional: NAD HEENT: PERRLA Respiratory: no wheezing, no rales, clear to auscultation bilateral Cardiovascular: RRR, no significant murmur Musculoskeletal: no edema Neurological: moves all 4 limbs Psychiatric: normal affect, A&O x 3 Skin: no rash Dx/Plan (1) Acute renal failure Status: Acute Qualifiers: Acute renal failure type: unspecified Qualified Code(s): N17.9 - Acute kidney failure, unspecified Plan: - BUN/Cr slightly worse compared to yesterday @ 36/9.13 as patient was not dialyzed yesterday. - Scheduled to have dialysis graft placed this AM & per nephrology will follow a ., ., Friday dialysis schedule following discharge pending outpatient dialysis placement. However, patient is undocumented and uninsured so this may not be possible. If no dialysis placement can be achieved patient will be instructed to return to the ED for dialysis Q5 days or so. - Will also continue to monitor Is & O's. Patient had 150mL UO overnight. Will continue to encourage adequate oral hydration but it is quite possible that he will be remain anuric as his kidney function is still in ARF range. - Possibly discharge today following dialysis graft placement & dialysis. (2) Urinary tract obstruction by kidney stone Code(s): N20.0 - CALCULUS OF KIDNEY; N13.8 - OTHER OBSTRUCTIVE AND REFLUX UROPATHY Status: Acute Plan: - Day 6 s/p stent placement. - Can possibly discharge today on PO Abx per Urology's recommendation. - Will instruct to f/u with Urology as an outpatient within 1 month following discharge to address his remaining stones and remove the stent. (3) Bilateral nephrolithiasis Code(s): N20.0 - CALCULUS OF KIDNEY Status: Acute Plan: - Aware, day #6 s/p L UPJ stent placement. - Will instruct patient to follow Urology's recommendations as outlined above. (4) Sepsis secondary to UTI Code(s): A41.9 - SEPSIS, UNSPECIFIED ORGANISM; N39.0 - URINARY TRACT INFECTION, SITE NOT SPECIFIED Status: Resolved Plan: Resolved. (5) UTI (urinary tract infection) Status: Acute Plan: Urine culture negative but will continue Levaquin 250mg PO Q48h through 10/10 as infection was likely related to prostate and urology would like him to remain on abx until pt can follow-up with them. (6) High anion gap metabolic acidosis Code(s): E87.2 - ACIDOSIS Status: Resolved Plan: Resolved. (7) Hyperkalemia Code(s): E87.5 - HYPERKALEMIA Status: Resolved Plan: Resolved. (8) Normocytic anemia Code(s): D64.9 - ANEMIA, UNSPECIFIED Status: Chronic Plan: - Hgb stable from yesterday. Will continue to monitor. - Will continue with ferrous sulfate & Procrit per nephrology's recommendation. - Will hold off transfusing but will recommend outpatient monitoring with nephrology for this as it is likely 2/2 ARF/CKD. (9) Secondary hyperparathyroidism (of renal origin) Code(s): N25.81 - SECONDARY HYPERPARATHYROIDISM OF RENAL ORIGIN Status: Suspected Plan: Likely 2/2 ARF. Will continue with calcitriol per nephrology's recommendation. (10) Hyperphosphatemia Code(s): E83.39 - OTHER DISORDERS OF PHOSPHORUS METABOLISM Status: Resolved Plan: Resolved. (11) Hyperchloremia Code(s): E87.8 - OTH DISORDERS OF ELECTROLYTE AND FLUID BALANCE, NEC Status: Acute Plan: Slightly up at 110 this AM. Will continue to monitor. (12) Diabetes mellitus Code(s): E11.9 - TYPE 2 DIABETES MELLITUS WITHOUT COMPLICATIONS Status: Chronic Qualifiers: Diabetes mellitus type: type 2 Plan: A1c on admission was 5.8. Patient denies being on any diabetes medications at home. BG has been well controlled. (13) Carpal tunnel syndrome of right wrist Code(s): G56.01 - CARPAL TUNNEL SYNDROME, RIGHT UPPER LIMB Status: Acute Plan: Will order splint for right wrist. (14) Hypokalemia Code(s): E87.6 - HYPOKALEMIA Status: Resolved Plan: Resolved. Will continue to monitor with AM BMP.
[2017-09-18] MEDS: Calcium Carbonate 500 MG ChewTAB PO SCH ×3 (07:55→16:38)
[2017-09-18] MEDS: Ferrous Sulfate 325 MG TAB PO SCH ×2 (07:55→16:37)
[2017-09-18] MEDS: Calcitriol 0.25 MCG CAP PO SCH (07:56)
--- NOTE | 2017-09-18 10:09 | PRG ---
DATE OF SERVICE: 09/18/2017 SUBJECTIVE: Mr. Clark is a 62-year-old male who was seen for an acute kidney injury on top o f a ? of chronic renal failure. He had uremic signs and symptoms at that time. He underwent emergen t hemodialysis. He is now receiving hemodialysis on a regular basis. He has a planned cuffed hemodi alysis catheter placement as well as an AV fistula placement today with Dr. Pineda. Please note he has a temporary femoral dialysis catheter. He is doing better with the dialysis. We are currently a waiting outpatient hemodialysis placement with this patient. According to the niece he was admitted here a year ago. I reviewed the medical records, there was none. It is possible he may have been gi maddi different medical record number. We will get in touch with the medical record section to see if we can merge his previous history with the current admission history. No other complaints today. PHYSICAL EXAMINATION: VITAL SIGNS: Blood pressure is 129/65, heart rate 70, respiratory 16, temperature 98.9, pulse ox 98% . GENERAL: Noted to be awake, alert, comfortable, not in distress. SKIN: Adequate turgor. HEENT: He has slightly pale conjunctivae, anicteric sclerae. NECK: No neck mass, no carotid bruits, no JVD. CHEST: No deformities. LUNGS: Clear breath sounds. HEART: Normal sinus rhythm. No murmur, no gallops, no rubs. ABDOMEN: Globular, soft, nontender, no masses. EXTREMITIES: No edema, no deformities. MEDICATIONS: 09/18/2017 - Reviewed. LABORATORY DATA: 09/18/2017 - White count 9.0, hemoglobin 7.3, sodium 139, potassium 3.8, chloride 1 10, carbon dioxide 21, BUN 36, creatinine 9.13, calcium 8.5. ASSESSMENT AND PLAN: 1. Acute kidney injury/chronic renal failure, no evidence of renal recovery. Creatinine is noted at 9. We will continue current Friday, , and Friday hemodialysis regimen. Again, fluid rem oval only as tolerated by the patient. 2. Anemia, currently on weekly Epogen. 3. Renal osteodystrophy currently on Tums and calcitriol. Awaiting outpatient hemodialysis placement. Case discussed at length with the niece, Farida. I also discussed the case with the case management director to help us with outpatient dialysis placement.
[2017-09-18] MEDS ORDERED: Fentanyl 100 MCG/2 ML VIAL ONE ×2 (10:39→10:51)
[2017-09-18] MEDS ORDERED: Lidocaine 2% Jelly 5 ML TUBE ONE (10:39)
[2017-09-18] MEDS ORDERED: Lidocaine 2% 10 ML INJ ONE (10:47)
[2017-09-18] MEDS ORDERED: Bupivacaine/Epinephrine 0.25% 30 ML VIAL ONE (10:47)
[2017-09-18] MEDS ORDERED: Heparin 5,000 UNITS/ML VIAL ONE (10:47)
[2017-09-18] MEDS ORDERED: Midazolam HCl 2 mg/2 ml Vial ONE (10:51)
[2017-09-18] MEDS ORDERED: Propofol 500 MG/50 ML VIAL ONE (10:51)
[2017-09-18] MEDS ORDERED: Heparin 10,000 UNITS/1 ML VIAL ONE (11:48)
[2017-09-18] MEDS ORDERED: Sodium Chloride 0.9% 20 ML ONE (11:48)
[2017-09-18] MEDS ORDERED: Heparin 10,000 UNITS/ 10 ML VIAL ONE (12:36)
[2017-09-18] MEDS ORDERED: PROPOFOL 200 MG/20 ML VIAL ONE (12:36)
--- NOTE | 2017-09-18 12:49 | ADD-PRG ---
DATE OF SERVICE: 09/18/2017 This is an addendum to the note of Dr. Roslyn Argueta. Mr. Clark is sitting quietly in bed in no distress. We are awaiting placement for dialysis. His shun t will be placed today. Clinically, the patient remains improved. He will of course need more outpa tient workup for his renal stones care.
[2017-09-18] MEDS ORDERED: Promethazine HCl 25 MG/ML VIAL SLOW IVP PRN (13:49)
[2017-09-18] MEDS ORDERED: Bupivacaine HCl 0.5%/Epinephrine 1:200,000/PF 30 ml Vial ONE (13:49)
[2017-09-18] MEDS ORDERED: Ondansetron HCl/PF 4 MG/2 ML Vial IVP PRN (13:49)
[2017-09-18] MEDS ORDERED: Promethazine HCl 25 MG/ML VIAL IM PRN (13:49)
--- NOTE | 2017-09-18 14:53 | RAD ---
PORTABLE CHEST ONE VIEW: Date: 09-18-17 Time: 1:47 p.m. History: Line placement. FINDINGS/IMPRESSION: Comparison is made with exam of 09-12-17. There has been interval placement of a right double lumen venous catheter with tip in the projection of the SVC. No pneumothorax is seen. POS: C
--- NOTE | 2017-09-18 18:01 | PDOC.OP ---
Operative Note - Operative Note Operative Note: PROCEDURE: Placement of right internal jugular tunneled hemodialysis catheter with ultrasound and fluoroscopic guidance, and left [place] AV fistula. SURGEON: Dane Pineda M.D. DATE OF PROCEDURE: 09/18/2017. PREOPERATIVE DIAGNOSIS: Acute on chronic renal failure. POSTOPERATIVE DIAGNOSIS: Acute on chronic renal failure. HISTORY: Patient with renal failure who presented to the hospital with ureteral obstruction. He was stented but his renal function has not recovered and the parts counter salesperson believes that he has end-stage renal failure. A tunneled hemodialysis catheter for ongoing dialysis has been requested for ongoing dialysis as well as an AV fistula for long-term dialysis access. PROCEDURE: After informed consent was obtained and appropriate preoperative antibiotics were administered, the patient was taken to the Operating Room, placed in the supine position and monitored anesthesia care was administered. The neck and chest were prepped and draped in a standard sterile fashion and the patient placed in Trendelenburg position. A sterile ultrasound probe was used to identify the patent compressible right IJ vein which was accessed under direct ultrasound guidance. A wire was threaded through the needle and confirmed by ultrasound to be within the patent compressible vessel with the tip in the vena cava by fluoroscopy. Local anesthesia was infused to the skin and subcutaneous tissues of the right neck and chest. An infraclavicular incision was made and a catheter tunneled from the infraclavicular to the right IJ access site. The right IJ was sequentially dilated over the wire following which a dilator and sheath were placed over the wire and the dilator and wire removed leaving the sheath in place. The catheter was tunneled through the sheath which was then split and removed leaving the catheter in place. This was confirmed by fluoroscopy to be in good position in the superior vena cava with no kinking of the course of the catheter. Both ports easily aspirated dark venous nonpulsatile blood and easily flushed without resistance. Heparin was instilled to the quantity specified on the hub, and the hub was secured to the skin with 3-0 nylon sutures. The skin incision at the neck was closed in two layers with 4-0 Monocryl suture and Dermabond dressings were placed. The skin at the exit site was snugged up around the catheter with 4-0 Monocryl suture and Dermabond was placed there as well. Once the Dermabond was dry, a Biopatch and Tegaderm dressing was placed at the exit site. Attention was then turned to creation of the AV fistula. A preoperative block had been performed by Anesthesia and the adequacy of block was confirmed. The arm was prepped and draped in a standard sterile fashion and an incision made between the palpable cephalic vein and radial artery. Dissection was carried out to the cephalic vein, which appeared to be of adequate quality and caliber to support a fistula. This was dissected free circumferentially, ligated, and divided distally, and spatulated with Santamaria scissors. This was serially interrogated with cardiac dilators and easily accepted up to a 4mm cardiac dilator. This was flushed with heparinized saline and clamped with a bulldog clamp. The radial artery was then dissected free and found to be of adequate quality and caliber to support a fistula. Heparin was administered systemically and allowed to circulate for 3 minutes following which the radial artery was clamped proximally and distally. An anterior arteriotomy was created with an 11 blade scalpel and extended with Santamaria scissors. An end-to-side anastomosis created with a running 6-0 Prolene suture with excellent technical result. Prior to tying down the anastomosis, the inflow was released to flush the anastomosis. Flow was established first through the fistula and then through the distal radial artery. Hemostasis at the site was confirmed, and an excellent thrill was felt in the cephalic vein outflow and an excellent bruit was heard with Doppler as well up to the proximal forearm. The patient had a large collateral vein with retrograde flow by Doppler down onto the dorsum of his hand which was ligated. Hemostasis at the operative site was again confirmed. The incision was closed with a running 3 -0 subcutaneous and running 4-0 subcuticular Monocryl sutures. Dermabond dressings were placed and the patient was taken to the recovery room in good condition. Estimated blood loss was minimal. There were no complications. There were no specimens.
[2017-09-18] MEDS: Acetaminophen 325 MG TAB PO PRN (20:59)
[2017-09-19 04:43] LABS: Anion Gap 11 mmol/L (10-20); BUN (Urea Nitrogen) 20 mg/dL (8.4-25.7); Calc. Creatinine Clearance 12 mL/min (70-130); Calcium 8.2 mg/dL (7.8-10.44); Carbon Dioxide 27 mmol/L (23-31); Chloride 104 mmol/L (98-107); Estimated GFR-MDRD 10; Glucose 193 mg/dL (80-115); Potassium 4.1 mmol/L (3.5-5.1); Sodium 138 mmol/L (136-145)
--- NOTE | 2017-09-19 05:27 | PDOC.FM ---
- Subjective Subjective: Patient had NAEO. Only complaint this AM is some swelling in his left hand below where his AV graft was placed. Instructed him to try to elevate his hand to help with this. He also endorses diarrhea with every BM but says that it has been ongoing for the last year. Denies any dysuria and says he was able to urinate a little overnight. - Objective MAR Reviewed: Yes Vital Signs & Weight: Vital Signs (12 hours) Temp Pulse Resp BP Pulse Ox 09/19/17 00:00 99.7 F H 67 18 137/81 97 09/18/17 20:00 98.3 F 67 18 09/18/17 19:35 98.3 F 67 18 172/87 H 99 Weight Admit Weight 67.358 kg Weight 67.1 kg Most Recent Monitor Data Heart Rate from ECG 68 NIBP 144/70 I&O: 09/17/17 09/18/17 09/19/17 06:59 06:59 06:59 Intake Total 890 1430 Output Total 0 150 Balance 890 1280 Result Diagrams: 09/18/17 03:36 09/19/17 03:58 Radiology Reviewed by me: Yes Phys Exam - Physical Examination Constitutional: NAD Respiratory: no wheezing, no rales, clear to auscultation bilateral Cardiovascular: RRR, no significant murmur Musculoskeletal: no edema Neurological: moves all 4 limbs Psychiatric: normal affect, A&O x 3 Skin: no rash Dx/Plan (1) Acute renal failure Status: Acute Plan: - BUN/Cr singificantly improved @ 20/5.96 as patient had a Left EV graft placed yesterday & was dialyzed. - Per nephrology will follow a ., ., Friday dialysis schedule following discharge pending outpatient dialysis placement. Still waiting to hear from case management regarding his outpatient dialysis placement status. - Will continue to monitor Is & O's. Patient had 150mL UO yesterday. Will continue to encourage adequate oral hydration but it is quite possible that he will be remain anuric as his kidney function is still in ARF range. - Will hopefully discharge today after confirming outpatient dialysis placement status. (2) Urinary tract obstruction by kidney stone Code(s): N20.0 - CALCULUS OF KIDNEY; N13.8 - OTHER OBSTRUCTIVE AND REFLUX UROPATHY Status: Acute Plan: - Day 7 s/p stent placement. - Can possibly discharge today on PO Abx per Urology's recommendation. - Will instruct to f/u with Urology as an outpatient within 1 month following discharge to address his remaining stones and remove the stent. (3) Bilateral nephrolithiasis Code(s): N20.0 - CALCULUS OF KIDNEY Status: Acute Plan: - Aware, day #7 s/p L UPJ stent placement. - Will instruct patient to follow Urology's recommendations as outlined above. (4) Sepsis secondary to UTI Code(s): A41.9 - SEPSIS, UNSPECIFIED ORGANISM; N39.0 - URINARY TRACT INFECTION, SITE NOT SPECIFIED Status: Resolved Plan: Resolved. (5) UTI (urinary tract infection) Status: Acute Plan: Urine culture negative but will continue Levaquin 250mg PO Q48h through 10/10 as infection was likely related to prostate and urology would like him to remain on abx until pt can follow-up with them. (6) High anion gap metabolic acidosis Code(s): E87.2 - ACIDOSIS Status: Resolved Plan: Resolved. (7) Hyperkalemia Code(s): E87.5 - HYPERKALEMIA Status: Resolved Plan: Resolved. (8) Normocytic anemia Code(s): D64.9 - ANEMIA, UNSPECIFIED Status: Chronic Plan: - Hgb stable from yesterday. Will continue to monitor. - Will continue with ferrous sulfate & Procrit per nephrology's recommendation. - Will hold off transfusing but will recommend outpatient monitoring with nephrology for this as it is likely 2/2 ARF/CKD. (9) Secondary hyperparathyroidism (of renal origin) Code(s): N25.81 - SECONDARY HYPERPARATHYROIDISM OF RENAL ORIGIN Status: Suspected Plan: Likely 2/2 ARF. Will continue with calcitriol per nephrology's recommendation. (10) Hyperphosphatemia Code(s): E83.39 - OTHER DISORDERS OF PHOSPHORUS METABOLISM Status: Resolved Plan: Resolved. (11) Hyperchloremia Code(s): E87.8 - OTH DISORDERS OF ELECTROLYTE AND FLUID BALANCE, NEC Status: Resolved Plan: - Down to 104 this AM. Will continue to monitor. (12) Diabetes mellitus Code(s): E11.9 - TYPE 2 DIABETES MELLITUS WITHOUT COMPLICATIONS Status: Chronic Qualifiers: Diabetes mellitus type: type 2 Plan: - A1c on admission was 5.8. Patient denies being on any diabetes medications at home. - BG has been fairly well controlled. - Will order diabetes education for him. (13) Carpal tunnel syndrome of right wrist Code(s): G56.01 - CARPAL TUNNEL SYNDROME, RIGHT UPPER LIMB Status: Acute Plan: - Will order splint for right wrist. (14) Hypokalemia Code(s): E87.6 - HYPOKALEMIA Status: Resolved Plan: Resolved. Will continue to monitor with AM BMP.
[2017-09-19] MEDS: HumaLOG 300 UNITS/3 ML VIAL SC PRN ×2 (06:07→18:17)
[2017-09-19] MEDS: Calcitriol 0.25 MCG CAP PO SCH (08:49)
[2017-09-19] MEDS: Ferrous Sulfate 325 MG TAB PO SCH ×2 (08:49→18:16)
[2017-09-19] MEDS: Calcium Carbonate 500 MG ChewTAB PO SCH ×3 (08:49→18:16)
--- NOTE | 2017-09-19 11:29 | ADD-PRG ---
ADDENDUM Please add this is an addendum to the note of Dr. Roslyn Argueta. Mr. Clark clinically is doing well. He has his dialysis catheter in place and is undergoing hemodialysis on a Friday, Friday and Fri schedule. Arrangement is still being made for his outpatient dialysis. We can probably later discharge home this afternoon to follow up with dialysis beginning in the morning.
--- NOTE | 2017-09-19 11:49 | PRG ---
DATE OF SERVICE: 09/19/2017 RENAL MEDICINE SUBJECTIVE: Mr. Clark is a 62-year-old male who was admitted for an acute kidney injury on t op of his chronic renal failure. Due to his uremic signs and symptoms, he underwent emergent hemodia lysis. He also had a left ureteral stent placed due to his hydronephrosis . In the interim, he had an AV fistula and cuffed dialysis catheter placed. No new complaints today. PHYSICAL EXAMINATION: VITAL SIGNS: Blood pressure is 145/76, heart rate 65, respiratory rate 14, temperature 98.3, pulse o x 99%. GENERAL: Awake, sitting comfortable, not in distress. SKIN: Adequate turgor. HEENT: Slightly pale conjunctivae, anicteric sclerae. NECK: No neck mass, no carotid bruits, no JVD. CHEST: No deformities. LUNGS: Clear breath sounds, no wheezing, no crackles. HEART: Normal sinus rhythm. No murmur, no gallops, no rubs. ABDOMEN: Globular, soft, nontender. No masses. EXTREMITIES: No edema. MEDICATIONS: Medications of 09/19/2017 was reviewed. LABORATORY DATA: Laboratories of 09/18/2017; white count 9, hemoglobin 7.3, sodium 138, potassium 4. 1, chloride 104, carbon dioxide 27, BUN 20, creatinine 5.96, glucose 193, calcium 8.2. GFR is 10 mL per minute. ASSESSMENT AND PLAN: 1. Acute kidney injury on top of his chronic renal failure, continuing 3 times a week hemodialysis. I do not see any evidence of renal recovery. Continue supportive dialysis. We are awaiting outpati ent dialysis placement. I am unclear if this patient will eventually recover his kidney function. T he possibility of ESRD remain strongly with this patient. 2. Renal osteodystrophy, currently on phosphate binders and calcitriol. 3. Anemia on weekly Epogen as well as an iron supplementation. P.r.n. blood transfusion.
--- NOTE | 2017-09-19 14:02 | PRG ---
DATE OF SERVICE: 09/19/2017 SUBJECTIVE: The patient is doing well and they were attempting to look for outpatient dialysis; [place], given his current status it is difficult and does not appear to be possible in this county. He otherwise has no complaints and is doing well. OBJECTIVE: His vitals have been stable. He has had minimal urine output. He still has a significan t anemia that is stable. I spent approximately 45 minutes reviewing the planned procedure with his niece, sister and the patie nt as the niece was the paraprofessional interpreter and we discussed how he has got an indwelling stent which has to be removed, but the obstructing left ureteral stone needs to be treated prior to doing so. Based on the fact that he is not making urine and he has significant bilateral renal stones, I would only jose mmend treating the ureteral stone as opposed to any renal stones, I suspect especially if he does not make further urine that the rest of the stones will be asymptomatic and not cause trouble. We revie wed how there is a chance in the future they could drop and become obstructive. We reviewed ureteros copy and extracorporal shockwave lithotripsy in detail. I would prefer the more minimally invasive p rocedure; however, after dusting of the stone I am not sure he would have enough urine output to rins e the stone fragments out, so I would first attempt ureteroscopy and stone extraction that way and on ly use extracorporal shockwave lithotripsy if I am unable to actually reach and fragment the stone sa [place] via ureteroscopy. I reviewed the risks and benefits of these in detail. In assessment we have a 62-year-old male admitted acutely in renal failure with an obstructing left u reteral stone, status post urgent stent, as well as a urinary tract infection, now on antibiotics, be ing prepared for discharge; however, without any plans to get dialysis as an outpatient. For this re ason, I will discuss with the Family Medicine Residents just keeping him in house until I can get thi s procedure done because discharging him and not allowing him to get dialysis and then attempting to do something on outpatient would not be safe and further delay the procedure itself so I would contin ue antibiotics and anticipate surgery Friday with discharge thereafter.
[2017-09-19] MEDS: Epoetin (ESRD) 20,000 UNITS/ML SC SCH (15:17)
--- NOTE | 2017-09-19 15:43 | PDOC.GSPN ---
Surgery Progress Note: Subj - Subjective Narrative: Mr. Clark is without complaint. His hand feels fine. On examination, there is no audible bruit or palpable thrill in his left forearm fistula. Patient is clinically stable and tolerating dialysis. He does have a tunneled hemodialysis catheter in place. Unfortunately he has already eaten today so a repeat fistula cannot be attempted until next week. We will try to do this as an outpatient but if unable for financial reasons I have asked his primary grade teacher to contact us at the time of his next admission so we can plan on redo fistula at that point. Surgery Progress Note: Obj - Vital signs Vital signs: Vital Signs - Most Recent Temp Pulse Resp BP Pulse Ox 98.3 F 65 14 145/76 H 99 09/19/17 07:47 09/19/17 07:47 09/19/17 07:47 09/19/17 07:47 09/19/17 07:47 Surgery Progress Note: Results - Labs Result Diagrams: 09/18/17 03:36 09/19/17 03:58 Lab results: Laboratory Results - last 24 hr 09/19/17 09/19/17 03:58 05:24 Sodium 138 Potassium 4.1 Chloride 104 Carbon Dioxide 27 Anion Gap 11 BUN 20 Creatinine 5.96 H Estimated GFR (MDRD) 10 Glucose 193 H POC Glucose 196 H Calcium 8.2 - Radiology Interpretation CT scan - head Status: image reviewed by me, report reviewed by me CT scan - abdomen Status: image reviewed by me, report reviewed by me
[2017-09-20 03:49] LABS: #Eosinphils 0.3 thou/uL (0.0-0.7); #Lymphocytes 1.9 thou/uL (1.20-3.40); #Monocytes 0.8 thou/uL (0.11-0.59); #Neutrophils 6.7 thou/uL (1.40-6.50); %Basophils 0.5 % (0.0-1.0); %Eosinophils 3.5 % (0.0-10.0); %Lymphocytes 19.1 % (21.0-51.0); %Monocytes 8.6 % (0.0-10.0); %Neutrophils 68.3 % (42.0-75.0); Hemoglobin 7.4 g/dL (14.0-18.0); Mean Corpuscular HGB CONC 32.9 g/dL (32.0-36.0); Mean Corpuscular Hemoglobin 28.7 pg (27.0-31.0); Mean Corpuscular Volume 87.1 fL (78.0-98.0); Mean Platelet Volume 7.1 fL (7.4-10.4); Platelet Count 270 thou/uL (130-400); RBC Distribution Width 14.9 % (11.5-14.5); Red Blood Cell (RBC) Count 2.57 mill/uL (4.70-6.10); White Blood Cell (WBC) Count 9.7 thou/uL (4.8-10.8)
[2017-09-20 04:01] LABS: Anion Gap 11 mmol/L (10-20); BUN (Urea Nitrogen) 33 mg/dL (8.4-25.7); Calc. Creatinine Clearance 10 mL/min (70-130); Calcium 8.6 mg/dL (7.8-10.44); Carbon Dioxide 23 mmol/L (23-31); Chloride 108 mmol/L (98-107); Estimated GFR-MDRD 7; Glucose 102 mg/dL (80-115); Potassium 4.2 mmol/L (3.5-5.1); Sodium 138 mmol/L (136-145)
--- NOTE | 2017-09-20 08:05 | PDOC.FM ---
- Subjective Subjective: Patient denies any pain at graft site or catheter site this AM. Denies any abdominal pain or CP. - Objective MAR Reviewed: Yes Vital Signs & Weight: Vital Signs (12 hours) Temp Pulse Resp 09/20/17 07:30 98.2 F 69 20 Weight Admit Weight 67.358 kg Weight 67.1 kg Most Recent Monitor Data Heart Rate from ECG 68 NIBP 144/70 I&O: 09/19/17 09/20/17 09/21/17 06:59 06:59 06:59 Intake Total 620 240 Output Total 0 Balance 620 240 Result Diagrams: 09/20/17 03:21 09/20/17 03:21 <Nikki Abad - Last Filed: 09/20/17 09:06> - Objective Vital Signs & Weight: Vital Signs (12 hours) Temp Pulse Resp 09/20/17 07:30 98.2 F 69 20 Weight Admit Weight 67.358 kg Weight 67.1 kg Most Recent Monitor Data Heart Rate from ECG 68 NIBP 144/70 I&O: 09/19/17 09/20/17 09/21/17 06:59 06:59 06:59 Intake Total 620 240 Output Total 0 Balance 620 240 Result Diagrams: 09/20/17 03:21 09/20/17 03:21 <Estelle Be - Last Filed: 09/20/17 10:39> Phys Exam - Physical Examination Constitutional: NAD HEENT: moist MMs Respiratory: no wheezing, no rales, no rhonchi, clear to auscultation bilateral Cardiovascular: RRR, no significant murmur, no rub Gastrointestinal: soft, non-tender, no distention, positive bowel sounds Musculoskeletal: no edema, pulses present Neurological: non-focal, moves all 4 limbs Psychiatric: normal affect, A&O x 3 Skin: normal turgor, cap refill <2 seconds <Nikki Abad - Last Filed: 09/20/17 09:06> Dx/Plan (1) Acute renal failure Status: Acute QualifierTitle: Acute renal failure type: unspecified Qualified Code(s): N17.9 - Acute kidney failure, unspecified (2) Bilateral nephrolithiasis Code(s): N20.0 - CALCULUS OF KIDNEY Status: Acute (3) Urinary tract obstruction by kidney stone Code(s): N20.0 - CALCULUS OF KIDNEY; N13.8 - OTHER OBSTRUCTIVE AND REFLUX UROPATHY Status: Acute (4) Chronic kidney disease (CKD) Code(s): N18.9 - CHRONIC KIDNEY DISEASE, UNSPECIFIED Status: Chronic (5) Diabetes mellitus Code(s): E11.9 - TYPE 2 DIABETES MELLITUS WITHOUT COMPLICATIONS Status: Chronic QualifierTitle: Diabetes mellitus type: type 2 - Plan Plan: Acute renal failure - BUN/Cr @ 33/7.5 as patient had a Left EV graft placed on 09/18, but it will need to be revised - Per nephrology will follow a , , Friday dialysis schedule following discharge pending outpatient dialysis placement. Still waiting to hear from case management regarding his outpatient dialysis placement status. - Will continue to monitor Is & O's. Patient has had minimal UOP. Will continue to encourage adequate oral hydration but it is quite possible that he will be remain anuric as his kidney function is still in ARF range. - Will d/c today after dialysis - Will have graft revision on Friday Urinary tract obstruction by kidney stone - Day 8 s/p stent placement. - Will discharge today on PO Abx per Urology's recommendation. - Will return on Friday for stone removal with urology and dialysis Bilateral nephrolithiasis - day #8 s/p L UPJ stent placement. - Will instruct patient to follow Urology's recommendations as outlined above. Sepsis secondary to UTI Resolved. UTI (urinary tract infection) - Urine culture negative but will continue Levaquin 250mg PO Q48h until after pt has stone removal. Normocytic anemia - Hgb stable from yesterday. Will continue to monitor. - Will continue with ferrous sulfate & Procrit per nephrology's recommendation. - Will hold off transfusing but will recommend outpatient monitoring with nephrology for this as it is likely 2/2 ARF/CKD. Secondary hyperparathyroidism (of renal origin) Likely 2/2 ARF. Will continue with calcitriol per nephrology's recommendation. Diabetes mellitus - A1c on admission was 5.8. Patient on metformin at home. - BG has been fairly well controlled. - Will order diabetes education for him. Carpal tunnel syndrome of right wrist - Will order splint for right wrist. Dispo: d/c home today after dialysis with plans to return to ED on Friday for stone removal with Dr. Abdul and then dialysis followed by graft revision on Friday with Dr. Pineda. <Nikki Abad - Last Filed: 09/20/17 09:06> Attending Addendum - Attending Addendum Date/Time: 09/20/17 1038 I personally evaluated the patient and discussed the management with Dr. Abad. I agree with the History, Examination, Assessment and Plan documented above with any addition or exceptions noted below. Plan is to discharge pt today. He will have surgery on Friday. <Estelle Be - Last Filed: 09/20/17 10:39>
--- NOTE | 2017-09-20 10:16 | PRG ---
DATE OF SERVICE: 09/20/2017 SERVICE: Renal Medicine. SUBJECTIVE: Mr. Clark is a 62-year-old male, who came in with acute kidney injury/chronic re nal failure, left renal obstruction, status post left ureteral stent placement, and currently receivi ng regular dialysis. I reviewed his creatinine today and his creatinine was noted at 7.5. There is no evidence of renal r ecovery with this patient. He may have ESRD. A cuffed hemodialysis catheter placement has been done by Dr. Pineda. AV fistula was done, but this is nonfunctional. Eventual revision of this fistula will be considered once the patient is readmitted again. He is feeling better this morning. He kathy es any chest pain or shortness of breath. OBJECTIVE: VITAL SIGNS: Blood pressure 167/78, heart rate 69, respiratory rate 20, temperature 98.2, pulse ox 9 8%. GENERAL EXAM: Noted to be awake, alert, comfortable, not in distress. SKIN: Adequate turgor. HEENT: He has a slightly pale conjunctivae, anicteric sclerae. NECK: No neck mass, no carotid bruits, no JVD. CHEST: No deformities. LUNGS: Clear. Decreased breath sounds. HEART: Normal sinus rhythm. No murmurs, no gallops, no rubs. ABDOMEN: Globular, soft, nontender, no masses. EXTREMITIES: No edema, no deformities. Medications of 09/20/2017 reviewed. LABORATORY DATA: Laboratories of 09/20/2017, white count 9.7, hemoglobin 7.4. Sodium 138, potassium 4.2, chloride 108, carbon dioxide 23, BUN 33, creatinine 7.5, glucose 102, calcium 8.6. ASSESSMENT AND PLAN: 1. End-stage renal disease, stable. Continue current 3 times a week hemodialysis. We are doing a 4 -hour dialysis with this patient. I am at the bedside supervising his dialysis. Fluid removal as to lerated. 2. Anemia, on weekly Epogen and iron supplementation. 3. Renal osteodystrophy, currently on Tums and calcitriol. Awaiting outpatient dialysis placement. Overall, agree with current management.
[2017-09-20] MEDS: Calcium Carbonate 500 MG ChewTAB PO SCH ×2 (12:41→12:43)
[2017-09-20] MEDS: Ferrous Sulfate 325 MG TAB PO SCH (12:43)
[2017-09-20] MEDS: Calcitriol 0.25 MCG CAP PO SCH (12:43)
[2017-09-20 13:42] VITALS: BP 130/70; TEMP 98.6
--- NOTE | 2017-09-22 08:22 | DIS-2 ---
DATE OF ADMISSION: 09/12/2017 DATE OF DISCHARGE: 09/20/2017 RESIDENT: Roslyn Argueta MD ADMITTING ATTENDING: Aldo Schroeder MD DISCHARGE ATTENDING: Estelle Be M.D. CONSULTATIONS: 1. Dr. Dane Pineda, General Surgery 2. Dr. Asad Yates, Nephrology 3. Dr. Marlena Abdul, Urology 4. Dr. Elida Maya, Pulmonary Critical Care. PROCEDURES: 1. CT brain without contrast - no acute intracranial findings. 2. CT of cervical spine showed no evidence of acute fracture or acute traumatic subluxation. 3. Retrograde pyelogram significant for a rounded filling defect in the left renal pelvis consistent with a calculus. 4. Abdomen/pelvis CT w/o contrast was significant for bilateral renal calculi with numerous calculi in the upper collecting structures of both kidneys and an 8-10 mm calculus in the proximal left ureter at or just beyond the left ureteropelvic junction. 5. Chest x-ray showed a normal cardiac silhouette, prominent pulmonary vessels , patchy interstitial opacities, but no pneumothorax or no significant pleural fluid. 6. Cystoscopy, left retrograde pyelogram, and insertion of left ureteral stent 09/05/2017. 7. Abdomen x-ray 1 view/KUB significant for several calcifications overlying the right kidney which correspond to renal calcifications noted on previous CT and a small calcified density adjacent to the upper pigtail, which may represent the previously described ureteral calcification on the left. Also showed calcifications overlying the peripheral left kidney. 8. Marking ultrasound of bilateral upper extremities significant for good color and spectral Doppler flow throughout the deep venous structures of each upper extremity. 9. Placement of right internal jugular tunneled hemodialysis catheter with ultrasound and fluoroscopic guidance in left [place] AV fistula. PRIMARY DIAGNOSES: 1. Acute renal failure 2/2 obstructive nephrolithiasis. 2. Coagulopathy. 3. Hyperkalemia. 4. High anion gap metabolic acidosis. 5. Urinary tract infection. 6. Hyperphosphatemia. 7. Hyperchloremia. 8. Normocytic anemia. 9. Sepsis secondary to urinary tract infection. 10. Bilateral nephrolithiasis. 11. Secondary hyperparathyroidism (of renal origin). SECONDARY DIAGNOSES: 1. Chronic Kidney disease 2. Diabetes mellitus type 2. DISCHARGE MEDICATIONS: 1. Calcitriol 0.25 mcg p.o. daily. 2. Calcium carbonate 500 mg p.o. t.i.d. 3. Epoetin 7500 units SQ every 7 days at 1100. 2. Ferrous sulfate 325 mg p.o. b.i.d. 3. Levofloxacin 250 mg p.o. q. 48 hours #7 tabs. DISCONTINUED MEDICATIONS: Metformin 500 mg PO BID. HOSPITAL COURSE: Mr. Clark is a 62-year-old gentleman with a past medical history significant for type 2 diabetes, who presented to the ED via EMS initially unresponsive after having a syncopal episode in the doorway of the hospital. Family initially called EMS because the patient was acting more confused than normal. Per the family, the patient had also been complaining of a progressively worsening headache over the last month and progressively worsening back pain over the last 2 weeks. He also could not remember the last time he urinated. In the ED, labs were drawn and showed that the patient was in acute renal failure with a BUN and creatinine of 96 and 24.89, respectively. Nephrology was consulted and recommended emergent dialysis and starting normal saline at a rate of 75 mL/hr, both of which were done in the ED. After dialysis, the patient was admitted to the MICU on NL saline. Nephrology continued to follow the patient throughout the duration of his hospital stay and he was dialyzed for the next 2 days. By 09/16, Nephrology recommended that the patient be dialyzed regularly and that he would more than likely require outpatient dialysis following discharge. The patient was then placed on a 3-day/week dialysis schedule of Friday, , and Friday and General Surgery was consulted for placement of a more permanent dialysis access site. After his next dialysis session on 09/18, a left AV fistula was placed by Dr. Pineda. However, on 09/19/2017 it was noted that the patient had a tunneled hemodialysis catheter and the fistula could not be used for dialysis. After being dialyzed on the date of discharge, the patient was instructed to return to the ED on Friday, 09/23, to be admitted to undergo his next scheduled dialysis session and to have a new fistula placed by Dr. Pineda on 09/24. Regarding the patient's sepsis, on presentation to the ED, the patient was found to be hypotensive with a blood pressure of 96/37 and hypothermic with a temperature of 94.7 degrees Fahrenheit. He also had a white blood count of 11.4. Urinalysis was significant for moderate RBCs, moderate leukocyte esterase , white blood cell count 11-20 and 2+ bacteria and he was therefore presumed to be septic secondary to a UTI. He was given 2 g of Rocephin, 1 amp of D50, and a 2.5 L bolus of normal saline and started on normal saline for maintenance fluids. He was then admitted to the MICU & followed by pulmonary critical care, but was transferred to the floor once he became hemodynamically stable. He was continued on ceftriaxone 2 g IV piggyback every 24 hours through Friday when he was switched to Levaquin 500 mg p.o. once and then 250 mg p.o. every 48 hours which he continued through the date of discharge. Regarding the bilateral nephrolithiasis and urinary tract stone obstruction , the patient had an abdominal/pelvic CT w/o contrast in the ED, which was significant for an 8 mm stone obstructing his left DPJ as well as bilateral numerous renal calculi. Urology was consulted and Dr. Abdul performed a retrograde pyelogram after cystoscopy and placed a 6 x 22 mm stent in his left ureter. After stent placement, the patient was admitted to the MICU and Urology continued to follow him over the course of his hospitalization. They recommended that the stent stay in place until the stone could be retrieved. The patient was instructed to return to the hospital for a scheduled ureteroscopy the morning of 09/23/2017 and to remain on PO antibiotics until this time. Regarding the patient's normocytic anemia, the patient was found to have a hemoglobin of only 6.7 on admission, which subsequently dropped to 6.3 and hematocrit of 20.7, which subsequently dropped to 19.7. While being dialyzed, he was given 1 unit of PRBCs and his hemoglobin was followed closely with daily CBCs for the duration of his hospitalization. His Hgb remained stable between 7- 8 throughout the rest of his hospital stay. Per Nephrology, the patient was started on ferrous sulfate supplementation and epoetin and was instructed to remain on these following discharge. COLEEN
--- NOTE | 2017-09-22 18:05 | EKG ---
Test Reason : URGENT Blood Pressure : / mmHG Vent. Rate : 068 BPM Atrial Rate : 068 BPM P-R Int : 134 ms QRS Dur : 100 ms QT Int : 408 ms P-R-T Axes : 057 036 023 degrees QTc Int : 433 ms Normal sinus rhythm Normal ECG When compared with ECG of 11-SEP-2017 21:46, Nonspecific T wave abnormality no longer evident in Lateral leads Confirmed by DR. Denzel UNGER ([id number]) on 09/22/2017 6:04:35 PM Referred By: Confirmed By:DR. Denzel UNGER
== END 2017-09-20 13:45 | disposition home or self-care (01) | DRG 853 ==
LOC: ERS 21:48 → EDBD 21:48 → IMCU/EMU 09-12 03:17 → MERGE 09-12 03:17 → T4-A 09-13 13:40
PROVIDERS: ADMIT Emergency Medicine; ATTEND Emergency Medicine
PROC: 0T778DZ Dilation of Left Ureter with Intraluminal Device, Via Natural or Artificial Opening Endoscopic (ICD-10-PCS; principal; 2017-09-12)
PROC: BT1F1ZZ Fluoroscopy of Left Kidney, Ureter and Bladder using Low Osmolar Contrast (ICD-10-PCS; 2017-09-12)
PROC: 5A1D70Z Performance of Urinary Filtration, Intermittent, Less than 6 Hours Per Day (ICD-10-PCS; 2017-09-12)
PROC: 30233N1 Transfusion of Nonautologous Red Blood Cells into Peripheral Vein, Percutaneous Approach (ICD-10-PCS; 2017-09-12)
PROC: 5A1D70Z Performance of Urinary Filtration, Intermittent, Less than 6 Hours Per Day (ICD-10-PCS; 2017-09-13)
PROC: 5A1D70Z Performance of Urinary Filtration, Intermittent, Less than 6 Hours Per Day (ICD-10-PCS; 2017-09-14)
PROC: 5A1D70Z Performance of Urinary Filtration, Intermittent, Less than 6 Hours Per Day (ICD-10-PCS; 2017-09-16)
PROC: 031C09F Bypass Left Radial Artery to Lower Arm Vein with Autologous Venous Tissue, Open Approach (ICD-10-PCS; 2017-09-18)
PROC: 05BF0ZZ Excision of Left Cephalic Vein, Open Approach (ICD-10-PCS; 2017-09-18)
PROC: 0JH63XZ Insertion of Tunneled Vascular Access Device into Chest Subcutaneous Tissue and Fascia, Percutaneous Approach (ICD-10-PCS; 2017-09-18)
PROC: 02HV33Z Insertion of Infusion Device into Superior Vena Cava, Percutaneous Approach (ICD-10-PCS; 2017-09-18)
PROC: 5A1D70Z Performance of Urinary Filtration, Intermittent, Less than 6 Hours Per Day (ICD-10-PCS; 2017-09-18)
PROC: 5A1D70Z Performance of Urinary Filtration, Intermittent, Less than 6 Hours Per Day (ICD-10-PCS; 2017-09-20)
DX: A41.9 Sepsis, unspecified organism (principal); G93.40 Encephalopathy, unspecified; N18.6 End stage renal disease; N17.9 Acute kidney failure, unspecified; E87.2 Acidosis; N25.81 Secondary hyperparathyroidism of renal origin; N13.6 Pyonephrosis; E87.5 Hyperkalemia; D64.9 Anemia, unspecified; E11.22 Type 2 diabetes mellitus with diabetic chronic kidney disease; N25.0 Renal osteodystrophy; E83.39 Other disorders of phosphorus metabolism; F17.210 Nicotine dependence, cigarettes, uncomplicated; G56.01 Carpal tunnel syndrome, right upper limb; E87.6 Hypokalemia; Z79.84 Long term (current) use of oral hypoglycemic drugs; Z89.422 Acquired absence of other left toe(s)
CPT/HCPCS: 36415; 36416; 36430; 51702; 70450; 71045; 72125; 74018; 74176; 74420; 80048; 80053; 80306; 80307; 81001; 81003; 81015; 82274; 82550; 82553; 82570; 82728; 83036; 83540; 83605; 83735; 83970; 84100; 84145; 84484; 84540; 85025; 85610; 85730; 86705; 86706; 86780; 86803; 86850; 86900; 86901; 87040; 87070; 87086; 87205; 87340; 87389; 90935; 93005; 93010; 93970; 96361; 96365; 96375; A4216; C1752; C1758; C1769; G0257; G0365; J0670; J0696; J1644; J2001; J2060; J2250; J2310; J2405; J2704; J3010; P9016; Q0162; Q4081; Q9961

== ENCOUNTER 2017-09-23 08:07 | Observation (INO) | payer OTHER, SELFPAY ==
[2017-09-23] MEDS ORDERED: Levofloxacin 500 mg/D5W 100 ml Premix Bag ONE (08:36)
[2017-09-23] MEDS ORDERED: Furosemide 20 MG/2 ML VIAL ONE ×2 (09:29→09:35)
[2017-09-23] MEDS ORDERED: Iothalamate Meglumine 60% 50 ML VIAL FS ONE (09:29)
[2017-09-23 09:30] LABS: Anion Gap 16 mmol/L (10-20); BUN (Urea Nitrogen) 61 mg/dL (8.4-25.7); Calc. Creatinine Clearance 0 mL/min (70-130); Calcium 8.6 mg/dL (7.8-10.44); Carbon Dioxide 21 mmol/L (23-31); Chloride 98 mmol/L (98-107); Estimated GFR-MDRD 7; Glucose 93 mg/dL (80-115); Potassium 4.6 mmol/L (3.5-5.1); Sodium 130 mmol/L (136-145)
[2017-09-23] MEDS ORDERED: Fentanyl 100 MCG/2 ML VIAL ONE (09:35)
--- NOTE | 2017-09-23 10:27 | RAD ---
ABDOMEN 1 VIEW: Date: 09/23/17 HISTORY: 62-year-old male for preoperative evaluation. COMPARISON: 09/15/17. FINDINGS: Left ureteral stent in place. Multiple bilateral renal calculi with little change from the prior stud y. No bowel obstruction. IMPRESSION: Overall stable multiple bilateral renal calculi and left ureteral stent from prior 09/15/17. POS: TPC
[2017-09-23] MEDS ORDERED: Promethazine HCl 25 MG/ML VIAL SLOW IVP PRN (10:44)
[2017-09-23] MEDS ORDERED: Promethazine HCl 25 MG/ML VIAL IM PRN (10:44)
[2017-09-23] MEDS ORDERED: Lidocaine 1% PF 5 ML VIAL ONE (13:12)
[2017-09-23] MEDS ORDERED: ePHEDrine/0.9% NaCl/PF SYRINGE 50 mg/10 ml ONE ×2 (13:12)
[2017-09-23] MEDS ORDERED: PROPOFOL 200 MG/20 ML VIAL ONE (13:12)
[2017-09-23] MEDS ORDERED: Ondansetron HCl/PF 4 MG/2 ML Vial ONE (13:12)
[2017-09-23] MEDS ORDERED: diphenhydrAMINE 50 MG/ML VIAL ONE (13:12)
[2017-09-23 13:48] LABS: Hemoglobin 7.9 g/dL (14.0-18.0); Mean Corpuscular HGB CONC 33.2 g/dL (32.0-36.0); Mean Corpuscular Hemoglobin 28.2 pg (27.0-31.0); Mean Corpuscular Volume 84.8 fL (78.0-98.0); Mean Platelet Volume 7.3 fL (7.4-10.4); Platelet Count 317 thou/uL (130-400); RBC Distribution Width 14.2 % (11.5-14.5); Red Blood Cell (RBC) Count 2.79 mill/uL (4.70-6.10); White Blood Cell (WBC) Count 5.8 thou/uL (4.8-10.8)
--- NOTE | 2017-09-23 15:12 | PDOC.FPRHP ---
- History of Present Illness Chief Complaint: Stone removal History of Present Illness: Mr Clark is a 62 year old male with recent diagnosis of ESRD secondary to obstruction from renal stone who presents for stone retrieval. He was admitted one week ago for sepsis and acute renal failure secondary to osbtructive nephropathy. He was found to have bilateral stone disease and was also had an obstructive stone in the left UPJ. Hemodialysis was initiated. A left ureteral stent was placed by Dr. Abdul. He also had a left forearm fistula and R. IJ hemodialysis catheter placed. The plan at that time was to discharge the patient until stone retrieval and stent removal could take place. Pt had urological procedure with Dr. Abdul this morning and is currently undergoing hemodialysis. - Allergies/Adverse Reactions Allergies Allergy/AdvReac Type Severity Reaction Status Date / Time No Known Allergies Allergy Verified 09/22/17 10:31 - Home Medications Medication Instructions Recorded Confirmed Type metFORMIN HCl 1 tab BID-WM 09/28/16 09/28/16 History Saccharomyces boulardii [Florastor] 250 mg PO DAILY #40 cap 10/02/16 Rx Calcitriol [Rocaltrol] 0.25 mcg PO DAILY #30 cap 09/20/17 Rx Calcium Carbonate [Tums] 500 mg PO TID-WM #90 tab 09/20/17 Rx Epoetin [Procrit] 7,500 units SC Q7D@1100 vial 09/20/17 Rx Ferrous Sulfate [Feosol] 325 mg PO BID-WM #60 tab 09/20/17 Rx Levofloxacin [Levaquin] 250 mg PO Q48H #7 tab 09/20/17 Rx - History PMHx: DM Type II, ESRD on HD, recent hx of obstructive nephropathy. PSHx: 1. cystocopy with left ureteral stent placement FHx: Social: - Review of Systems General: denies: fever/chills Respiratory: denies: cough, congestion Cardiovascular: denies: chest pain Gastrointestinal: denies: nausea, vomiting Genitourinary: denies: incontinence, dysuria Musculoskeletal: denies: pain - Vital signs BP: 130/70 HR: 75 RR: 16 Tmax: 98.6 Pox: 98% on RA - Physical Exam Constitutional: NAD HEENT: normocephalic and atraumatic Neck: trachea midline -Neck: R. IJ HD catheter in place Heart: RRR, normal S1/S2, no murmurs/rubs/gallops Lungs: CTAB, no respiratory distress Abdomen: soft, non-tender, no masses/distention Musculoskeletal: normal structure Neurological: no focal deficit, CN II-XII intact Skin: no rash/lesions Heme/Lymphatic: no unusual bruising or bleeding Psychiatric: normal mood and affect FMR H&P: Results - Labs Result Diagrams: 09/24/17 04:28 09/24/17 04:28 Lab results: WBC 5.8 thou/uL (4.8-10.8) 09/23/17 12:40 Hgb 7.9 g/dL (14.0-18.0) L 09/23/17 12:40 Hct 23.7 % (42.0-52.0) L 09/23/17 12:40 MCV 84.8 fL (78.0-98.0) 09/23/17 12:40 Plt Count 317 thou/uL (130-400) 09/23/17 12:40 Sodium 130 mmol/L (136-145) L 09/23/17 08:44 Potassium 4.6 mmol/L (3.5-5.1) 09/23/17 08:44 Chloride 98 mmol/L (98-107) 09/23/17 08:44 Carbon Dioxide 21 mmol/L (23-31) L 09/23/17 08:44 BUN 61 mg/dL (8.4-25.7) H 09/23/17 08:44 Creatinine 8.29 mg/dL (0.6-1.3) H 09/23/17 08:44 Glucose 93 mg/dL (80-115) 09/23/17 08:44 Calcium 8.6 mg/dL (7.8-10.44) 09/23/17 08:44 FMR H&P: A/P - Problem List (1) End stage renal disease on dialysis Current Visit: Yes Status: Acute Code(s): N18.6 - END STAGE RENAL DISEASE; Z99.2 - DEPENDENCE ON RENAL DIALYSIS Assessment and Plan: Will admit patient to observation. Patient has had urological procedure with Dr. Abdul this morning. Dr. Yates has been consulted and has initiated dialysis. Will discuss with Dr. Pineda plans for AV fistula revision tomorrow. Likely discharge tomorrow. Attending Addendum - Attending Addendum Date/Time: 09/24/17 [id number] I personally evaluated the patient and discussed the management with Dr. Novak on 09/23/17 @16:00 I agree with the History, Examination, Assessment and Plan documented above with any addition or exceptions noted below- Briefly this is a 62year old male with recent hospitalization due to post-obstructive uropathy resulting in ESRD requiring HD presented for admission after stent placement for uropathy in need of HD. Additionally patient also needs revision of his AV fistula. Denies any complaints currently. PMH/PSH/Meds/All reviewed and agree with residents documentation. Afebrile VSS Exam repeated by me and agree with residents findings. A/P: 1) ESRD on HD- continue dialysis as per nephrology. Plan for fistula revision by surgery tomorrow. 2) Obstructive uropathy- appreciate urology assistance. Stent in place. Management as per urology.
--- NOTE | 2017-09-23 15:14 | PRG ---
DATE OF SERVICE: 09/23/2017 SUBJECTIVE: Mr. Meek is a 62-year-old male with ESRD and was admitted for lithotripsy. Underwent the said procedure. We are being consulted for his maintenance hemodialysis. He is curren tly undergoing hemodialysis today. Fluid removal is being done as tolerated. No other complaints. No chest pain or shortness of breath. OBJECTIVE: VITAL SIGNS: Blood pressure is 108/64, heart rate 72. GENERAL: Awake, alert, comfortable, not in distress. SKIN: Adequate turgor. HEENT: Slightly pale conjunctivae, anicteric sclerae. NECK: No neck mass, no carotid bruits. No JVD. CHEST: No deformities. LUNGS: Clear breath sounds, no wheezing, no crackles. HEART: Normal sinus rhythm. No murmur, no gallops, no rubs. ABDOMEN: Globular, soft, and nontender, no masses. EXTREMITIES: No edema, no deformities. MEDICATIONS: Of 09/23/2017 was reviewed. LABORATORY DATA: Of 09/23/2017, sodium 130, potassium 4.6, chloride 98, carbon dioxide 21, BUN 61, c reatinine 8.29, glucose 93, calcium 8.6. White count 5.8, hemoglobin 7.9. ASSESSMENT AND PLAN: 1. Anemia - resume ferrous sulfate 325 mg p.o. b.i.d. Epogen 7500 units subcutaneously every week. 2. End-stage renal disease -- hemodialysis x4 hours today. Fluid removal as tolerated. Attempt 3 l iters fluid removal. 4. Left renal stone - status post left ureteral stent placement. From my previous understanding, we were not successful in obtaining outpatient dialysis placement wit h this patient due to several reasons. If the patient is stable, no dialysis will be indicated tomor row. I will place him temporarily on a Friday, , and Friday dialysis regimen.
[2017-09-23] MEDS ORDERED: Epoetin (ESRD) 20,000 UNITS/ML SC SCH (16:00)
[2017-09-23] MEDS: Ferrous Sulfate 325 MG TAB PO SCH (18:19)
[2017-09-23] MEDS: Calcium Carbonate 500 MG ChewTAB PO SCH (18:19)
[2017-09-23] MEDS ORDERED: Acetaminophen 325 MG TAB PO PRN (20:26)
[2017-09-24 05:15] LABS: #Basophils 0.1 thou/uL (0.0-0.2); #Eosinphils 0.2 thou/uL (0.0-0.7); #Lymphocytes 1.4 thou/uL (1.20-3.40); #Monocytes 0.7 thou/uL (0.11-0.59); #Neutrophils 4.2 thou/uL (1.40-6.50); %Eosinophils 3.4 % (0.0-10.0); %Lymphocytes 21.6 % (21.0-51.0); %Monocytes 10.9 % (0.0-10.0); %Neutrophils 63.1 % (42.0-75.0); Hemoglobin 8.2 g/dL (14.0-18.0); Mean Corpuscular HGB CONC 32.9 g/dL (32.0-36.0); Mean Corpuscular Hemoglobin 27.9 pg (27.0-31.0); Mean Platelet Volume 7.2 fL (7.4-10.4); Platelet Count 357 thou/uL (130-400); RBC Distribution Width 14.5 % (11.5-14.5); Red Blood Cell (RBC) Count 2.93 mill/uL (4.70-6.10); White Blood Cell (WBC) Count 6.7 thou/uL (4.8-10.8)
[2017-09-24 05:23] LABS: Anion Gap 12 mmol/L (10-20); BUN (Urea Nitrogen) 28 mg/dL (8.4-25.7); Calc. Creatinine Clearance 0 mL/min (70-130); Calcium 8.6 mg/dL (7.8-10.44); Carbon Dioxide 29 mmol/L (23-31); Chloride 98 mmol/L (98-107); Estimated GFR-MDRD 11; Glucose 98 mg/dL (80-115); Potassium 4.2 mmol/L (3.5-5.1); Sodium 135 mmol/L (136-145)
[2017-09-24] MEDS: Ferrous Sulfate 325 MG TAB PO SCH ×2 (08:11→19:34)
[2017-09-24] MEDS: Calcium Carbonate 500 MG ChewTAB PO SCH ×2 (08:11→19:34)
[2017-09-24] MEDS ORDERED: Calcitriol 0.25 MCG CAP PO SCH (09:00)
[2017-09-24] MEDS ORDERED: Heparin 5,000 UNITS/ML VIAL ONE (09:23)
[2017-09-24] MEDS ORDERED: Bupivacaine HCl 0.25%/Epi 0.0005/PF 10 ML VIAL FS ONE ×2 (09:23)
--- NOTE | 2017-09-24 09:55 | PRG ---
DATE OF SERVICE: 09/24/2017 The patient did well overnight, but did not sleep well based on multiple interruptions and just overall discomfort related to the SCDs. He voided this morning without difficulty and is listed as 400. We reviewed the case, however , there was no definitive stone found, but will remove the stent today and anticipate he should do well. Iff there are still bilateral stones present, at some point any of them can drop and become problematic. Currently there are no known stones in his left ureter and so we will remove the stent today. We also discussed stone prevention in detail and my concern about significant calcium supplements at this time. I asked him to review this with Dr. Yates further and be on minimal supplementation regarding that. PHYSICAL EXAMINATION: VITAL SIGNS: He has been afebrile. Vital signs are stable, some hypertension, but last check it was 136/77, satting 95% on room air. GENERAL: He appears comfortable in the bed. I grasped the string from the tape that had been on the penis and pulled that without difficulty to remove the ureteral stent completely. He tolerated the procedure well. ASSESSMENT: We have a 62-year-old male status post right ureteroscopy yesterday with the stent now out with presumed bilateral renal stones and renal failure with improving urine output. We discussed renal colic and expectations of if and when a future stone were to drop, but for now, his ureters are clear and he needs nothing further acutely from Urology. COLEEN
[2017-09-24] MEDS ORDERED: Heparin 10,000 UNITS/ 10 ML VIAL ONE ×2 (09:57→14:34)
[2017-09-24] MEDS ORDERED: Fentanyl 100 MCG/2 ML VIAL ONE (09:58)
[2017-09-24] MEDS ORDERED: Midazolam HCl 2 mg/2 ml Vial ONE (09:58)
[2017-09-24] MEDS ORDERED: CEFAZOLIN/Water 2 GM/20 ML SYRINGE ONE (10:30)
[2017-09-24] MEDS ORDERED: PROPOFOL 20 ML ONE (11:30)
--- NOTE | 2017-09-24 11:38 | PDOC.FM ---
- Subjective Subjective: Patient doing well this AM. He denies any fevers, chills, difficulty urinating, hematuria. He reports his only complaint is that he is hungry. He denies problems with dialysis yesterday and denies SOB or chest pain. - Objective MAR Reviewed: Yes Vital Signs & Weight: Vital Signs (12 hours) Temp Pulse Resp BP Pulse Ox 09/24/17 03:35 98.7 F 70 16 136/77 95 09/24/17 00:00 98.5 F 74 16 152/78 H 96 I&O: 09/23/17 09/24/17 09/25/17 06:59 06:59 06:59 Intake Total 490 Output Total 400 Balance 90 Result Diagrams: 09/24/17 04:28 09/24/17 04:28 Phys Exam - Physical Examination Constitutional: NAD HEENT: moist MMs, sclera anicteric Respiratory: no wheezing, no rales, no rhonchi, clear to auscultation bilateral Cardiovascular: RRR, no significant murmur, no rub Gastrointestinal: soft, non-tender, no distention, positive bowel sounds Musculoskeletal: no edema, pulses present Neurological: non-focal, moves all 4 limbs Psychiatric: normal affect, A&O x 3 Dx/Plan (1) End stage renal disease on dialysis Code(s): N18.6 - END STAGE RENAL DISEASE; Z99.2 - DEPENDENCE ON RENAL DIALYSIS Status: Acute (2) Bilateral nephrolithiasis Code(s): N20.0 - CALCULUS OF KIDNEY Status: Acute (3) Anemia in CKD (chronic kidney disease) Code(s): N18.9 - CHRONIC KIDNEY DISEASE, UNSPECIFIED; D63.1 - ANEMIA IN CHRONIC KIDNEY DISEASE Status: Acute (4) Diabetes type 2, controlled Code(s): E11.9 - TYPE 2 DIABETES MELLITUS WITHOUT COMPLICATIONS Status: Chronic Qualifiers: Diabetes mellitus long term care pharmacist insulin use: without skilled nursing use Diabetes mellitus complication status: with unspecified complications Qualified Code(s) : E11.8 - Type 2 diabetes mellitus with unspecified complications (5) Hypertension Code(s): I10 - ESSENTIAL (PRIMARY) HYPERTENSION Status: Chronic Qualifiers: Hypertension type: essential hypertension Qualified Code(s): I10 - Essential (primary) hypertension - Plan Plan: Bilateral Nephrolithiasis pt had obstructing stone in L UPJ, s/p stent placement during last hospitalization by Dr. Abdul. He also has bilateral nephrolithiasis on abd x- ray. Dr. Abdul did cystoscopy on 09/23 and did not find stone, so pt must have passed it during that time. Stent removed on 09/24. -Will discuss the option of switching from calcium carbonate to sevelamer with Dr. Yates to potentially reduce the risk of recurrent stones. -Dr. Abdul has been consulted, appreciate recs ESRD on HD Pt has ,,Fri schedule, but is uninsured and have been having difficulty getting outpatient dialysis. He currently has tunneled catheter for access and Dr. Pineda is doing a fistula revision this AM. -Dr. Yates has been consulted, appreciate recs -Dr. Pineda has been consulted, appreciate recs -Continue home meds, but discuss with Dr. Yates the option of switching from calcium carbonate to sevelamer -Binding End Stitcher on fluid restriction Anemia of CKD -Continue home meds -Stable DM2 Pts most recent A1c was 5.9%. -Not currently on medication, continue to monitor with accuchecks Dispo: plan for d/c later today or tomorrow pending specialist recs
[2017-09-24] MEDS ORDERED: Bupivacaine HCl 0.5%/Epinephrine 1:200,000/PF 30 ml Vial ONE (13:24)
[2017-09-24] MEDS ORDERED: Labetalol 100 MG/20 ML MDV ONE (14:34)
[2017-09-24] MEDS ORDERED: Lidocaine 1% PF 5 ML VIAL ONE ×2 (14:34)
[2017-09-24] MEDS ORDERED: PROPOFOL 200 MG/20 ML VIAL ONE (14:34)
[2017-09-24] MEDS ORDERED: hydrALAZINE 20 MG/ML VIAL SLOW IVP PRN (15:22)
--- NOTE | 2017-09-24 18:50 | PDOC.OP ---
Operative Note - Operative Note Operative Note: PROCEDURE: Left radiocephalic AV fistula SURGEON: Dane Pineda M.D. DATE OF PROCEDURE: 09/24/2017 PREOPERATIVE DIAGNOSIS: Renal failure POSTOPERATIVE DIAGNOSIS: Renal failure HISTORY: Mr. Clark is a 62-year-old man with renal failure. He had a left Ludwin fistula placed last week but had almost immediate thrombosis. It was felt that this was related to involve near the anastomosis. The vein appears to be patent more proximally in the forearm and also in the upper arm so recommendation was made to proceed with another left sided fistula. PROCEDURE IN DETAIL: After informed consent was obtained and appropriate preoperative antibiotics administered, the patient was taken to the operating room and placed in the supine position and monitored anesthesia care was administered. A preoperative block had been performed by Anesthesia and the adequacy of block was confirmed. The arm was prepped and draped in a standard sterile fashion and an incision made between the palpable cephalic vein and radial artery just proximal to the previous Ludwin fistula. Dissection was carried out to the cephalic vein, which appeared to be of adequate quality and caliber to support a fistula. This was dissected free circumferentially, ligated, and divided distally, and spatulated with Santamaria scissors. This was serially interrogated with cardiac dilators and easily accepted up to a 4 mm cardiac dilator. This was flushed with heparinized saline and clamped with a bulldog clamp. The radial artery was then dissected free and found to be of adequate quality and caliber to support a fistula. Heparin was administered systemically and allowed to circulate for 3 minutes following which the radial artery was clamped proximally and distally. An anterior arteriotomy was created with an 11 blade scalpel and extended with Santamaria scissors. An end-to- side anastomosis created with a running 6-0 Prolene suture with excellent technical result. Prior to tying down the anastomosis, the inflow was released to flush the anastomosis. Flow was established first through the fistula and then through the distal radial artery. Hemostasis at the site was confirmed, and an excellent thrill was felt in the cephalic vein outflow and an excellent bruit was heard with Doppler as well up to the proximal forearm. Hemostasis at the operative site was again confirmed. The incision was closed with a running 3 -0 subcutaneous and running 4-0 subcuticular Monocryl sutures. Dermabond dressings were placed and the patient was taken to the recovery room in good condition. Estimated blood loss was minimal. There were no complications. There were no specimens.
[2017-09-24] MEDS ORDERED: hydrALAZINE 10 MG TAB PO SCH (20:45)
[2017-09-24 23:27] VITALS: BP 150/73; TEMP 98.5
--- NOTE | 2017-09-25 14:49 | OP ---
DATE OF SERVICE: 09/23/2017 PREOPERATIVE DIAGNOSIS: left ureteral stone(s). POSTOPERATIVE DIAGNOSIS: No ureteral stone. SURGEON: Marlena Abdul M.D. ANESTHESIA: General with laryngeal mask airway. FINDINGS: No ureteral stone. Stent remaining was a double-J with a string. No complications. PROCEDURE: Rigid ureteroscopy and pyeloscopy. COMPLICATIONS: None. FINDINGS: No ureteral or renal pelvic stone noted. SPECIMENS: None. BLOOD LOSS: None. INDICATIONS FOR PROCEDURE: The patient is a 62-year-old male who came in acute renal failure with an obstructing left ureteral stone, status post urgent stent for the renal failure and he had a urinary infection and he had that stent placed on 09/12/2017 and presents for definitive therapy. Prior KUB did appear to show what appeared to be a proximal ureteral stone. We already discussed I was not going to treat the renal stones, but just the obstructing stone so that the stent could be removed safely. PROCEDURE IN DETAIL: The patient was brought into the room by Anesthesia, laid on the table in supine position. After receiving general anesthetic, his legs were placed in lithotomy position with his left leg lowered and right leg elevated. His bladder was inspected. The stent was grasped and brought out through the urethral meatus. Then, a wire was advanced into the renal pelvis and the old stent was removed. Rigid ureteroscope was then used to go into the ureter and was carefully traversed all the way up and then I was already in the renal pelvis and I did not notice the stone, so I carefully retracted the scope making sure that I had not missed something on the way in with coapting tissue. I had good evaluation of the proximal ureter and noted no stone. So, I went back into the renal pelvis. I did not see any floating stone. I did not see any stone. So, I carefully again went down the entire length of the ureter ensuring that I saw every component of the mucosa as I left and was unable to identify any ureteral or renal pelvic stones. So, at this point, the scope was removed. Cystoscope back fed over the wire and a 6 x 24 double-J stent was placed with the string intact. Good coil was visualized in the renal pelvis via fluoroscopy and a good coil was visualized in the bladder via cystoscopy. The scope was broken apart, bladder drained and then removed carefully so that the string could be attached to the patient's penis and then he was awakened and transferred to PACU in stable condition. COLEEN
--- NOTE | 2017-09-26 05:07 | DIS-2 ---
DATE OF ADMISSION: 09/23/2017 DATE OF DISCHARGE: 09/24/2017 ADMITTING ATTENDING: Aldo Schroeder M.D. DISCHARGE ATTENDING: Lloyd Pelayo M.D. RESIDENT: Jayna Novak M.D., PGY-3 CONSULTATIONS: 1. Araseli Abdul M.D. 2. Dane Pineda M.D. 3. Dr. Asad Yates. PRIMARY DIAGNOSES: 1. End-stage renal disease on hemodialysis. 2. Bilateral nephrolithiasis. SECONDARY DIAGNOSES: 1. Diabetes. 2. Hypertension. DISCHARGE MEDICATIONS: 1. Ferrous sulfate 325 mg p.o. b.i.d. 2. Calcium carbonate 500 mg p.o. t.i.d. 3. Calcitriol 0.25 mcg p.o. daily. 4. Procrit 7500 units subcutaneous every 7 days. DISCONTINUED MEDICATIONS: Levofloxacin 250 mg p.o. q.48 hours. HOSPITAL COURSE: Patient is a 62-year-old male with recent diagnosis of end-stage renal disease who presented to the hospital for definitive stone therapy and also AV fistula revision. On day 1 of adm ission, patient had cystoscopy that showed no ureteral stones. This was followed by dialysis. The , the patient underwent left radiocephalic AV fistula formation. Procedure with Dr. Rogelio mauro. Patient tolerated the procedure well. Postoperatively, patient was noted to have an elevated p ressures continued to be asymptomatic. He did receive labetalol intraoperatively as well as dose of hydralazine several hours postoperatively and his blood pressures improved. Patient was discharged i n stable condition. DISPOSITION: Stable. DISCHARGE INSTRUCTIONS: 1. Location: Home. 2. Activity: Ad-harpal. FOLLOWUP: Patient was instructed to follow up with Dr. Pineda in 2 weeks or sooner if he begins to experience any postoperative complications. He will follow up with his primary care provider in 7 da ys
== END 2017-09-24 23:16 | disposition home or self-care (01) ==
LOC: SDC 08:07 → SURG A 11:32
PROVIDERS: ADMIT Student in an Organized Health Care Education/Training Program; ATTEND Student in an Organized Health Care Education/Training Program
PROC: 0T778DZ Dilation of Left Ureter with Intraluminal Device, Via Natural or Artificial Opening Endoscopic (ICD-10-PCS; principal; 2017-09-23)
PROC: 031C0ZF Bypass Left Radial Artery to Lower Arm Vein, Open Approach (ICD-10-PCS; 2017-09-24)
DX: N20.0 Calculus of kidney (principal); E11.22 Type 2 diabetes mellitus with diabetic chronic kidney disease; I12.0 Hypertensive chronic kidney disease with stage 5 chronic kidney disease or end stage renal disease; N18.6 End stage renal disease; D63.1 Anemia in chronic kidney disease; Z79.84 Long term (current) use of oral hypoglycemic drugs; Z79.899 Other long term (current) drug therapy
CPT/HCPCS: 36415; 74018; 76001; 80048; 85025; 85027; 90935; 96372; C1758; G0257; G0378; J0360; J0670; J1200; J1644; J1940; J1956; J2001; J2250; J2405; J2704; J3010; Q4081; Q9961

== ENCOUNTER 2017-09-25 09:34 | Observation (INO) | payer OTHER, SELFPAY ==
[2017-09-25 10:03] LABS: #Lymphocytes 1.4 thou/uL (1.20-3.40); #Neutrophils 4.9 thou/uL (1.40-6.50); %Basophils 1.3 % (0.0-1.0); %Eosinophils 4.1 % (0.0-10.0); %Lymphocytes 18.4 % (21.0-51.0); %Neutrophils 67.2 % (42.0-75.0); Mean Corpuscular HGB CONC 32.4 g/dL (32.0-36.0); Mean Corpuscular Hemoglobin 27.9 pg (27.0-31.0); Mean Corpuscular Volume 86.1 fL (78.0-98.0); Mean Platelet Volume 6.7 fL (7.4-10.4); Platelet Count 402 thou/uL (130-400); RBC Distribution Width 14.7 % (11.5-14.5); Red Blood Cell (RBC) Count 2.88 mill/uL (4.70-6.10); White Blood Cell (WBC) Count 7.3 thou/uL (4.8-10.8)
[2017-09-25 10:04] LABS: #Basophils 0.1 thou/uL (0.0-0.2); #Eosinphils 0.3 thou/uL (0.0-0.7); #Monocytes 0.7 thou/uL (0.11-0.59)
[2017-09-25 10:37] LABS: Anion Gap 19 mmol/L (10-20); BUN (Urea Nitrogen) 38 mg/dL (8.4-25.7); Calc. Creatinine Clearance 0 mL/min (70-130); Carbon Dioxide 21 mmol/L (23-31); Chloride 99 mmol/L (98-107); Estimated GFR-MDRD 8; Glucose 160 mg/dL (80-115); Potassium 5.3 mmol/L (3.5-5.1); Sodium 134 mmol/L (136-145)
[2017-09-25 10:38] LABS: ALT (SGPT) 7 U/L (8-55); AST (SGOT) 19 U/L (5-34); Albumin 3.4 g/dL (3.4-4.8); Alkaline Phosphatase 67 U/L (40-150); Bilirubin, Total 0.4 mg/dL (0.2-1.2); CK (CPK) 83 U/L (30-200); Calcium 8.6 mg/dL (7.8-10.44); Lipase 30 U/L (8-78); Protein, Total 6.4 g/dL (5.8-8.1)
[2017-09-25 10:46] LABS: CKMB 1.4 ng/mL (0-6.6); Troponin I Less than 0.010 ng/mL (< 0.028)
--- NOTE | 2017-09-25 12:43 | RAD ---
UPRIGHT PORTABLE CHEST ONE VIEW: HISTORY: A 62-year-old male with a history of chest pain and shortness of breath. COMPARISON: 09/18/2017 FINDINGS: Right dual-lumen venous access catheter. Monitor leads overly the chest. Linear and parenchymal andrea nges in the left lower lobe, slightly more prominent than on the prior study, having more the appeara nce of chronic change and/or subsegmental atelectasis. No significant confluent process. Heart size is within normal limits. IMPRESSION: Linear and parenchymal changes, left base, somewhat more prominent than the prior study, having more the appearance of subsegmental atelectasis or chronic change. No new confluent pneumonia, overt chikis a, or pleural effusion. POS: [facility]
[2017-09-25 13:48] LABS: Troponin I 0.015 ng/mL (< 0.028)
[2017-09-25] MEDS ORDERED: Ondansetron HCl/PF 4 MG/2 ML Vial IVP PRN (13:59)
[2017-09-25] MEDS ORDERED: Ondansetron ODT 4 MG TAB SL PRN (13:59)
[2017-09-25] MEDS ORDERED: Sodium Chloride 0.9% 1,000 ML IV SCH (13:59)
[2017-09-25 15:31] VITALS: BMI 26.4
[2017-09-25 16:11] LABS: Troponin I 0.017 ng/mL (< 0.028)
--- NOTE | 2017-09-25 16:29 | PRG ---
DATE OF SERVICE: 09/25/2017 RENAL MEDICINE SUBJECTIVE: Mr. Fantasma Clark is a 62-year-old male with ESRD and admitted for chest pain. He is being ruled out for MS. We are being consulted for his maintenance hemodialysis. I examined t he patient. I feel that we can wait until tomorrow. I have scheduled him tomorrow for a 4-hour hemo dialysis. Currently, no chest pain, no shortness of breath, no nausea, no vomiting, no diarrhea, no constipation, no productive cough, no fever or chills. PHYSICAL EXAMINATION: VITAL SIGNS: Blood pressure is 132/78, heart rate 64, respiratory rate 12, temperature 98.5, pulse o x 96%. GENERAL: Awake, alert, comfortable, not in distress. SKIN: Adequate turgor. HEENT: Slightly pale conjunctivae, anicteric sclerae. NECK: No neck mass, no carotid bruits, no JVD. CHEST: No deformities. LUNGS: Clear breath sounds. HEART: Normal sinus rhythm. No murmurs, no gallops, no rubs. ABDOMEN: Globular, soft, nontender, no masses. EXTREMITIES: No edema, no deformities. Positive for AV fistula in the left upper extremity. MEDICATIONS: Medications of 09/25/2017 reviewed. LABORATORY DATA: Laboratories of 09/25/2017; white count 7.3, hemoglobin 8. Sodium 134, potassium 5 .3, chloride 99, carbon dioxide 21, BUN 38, creatinine 7.37, glucose 160, AST 19, ALT 7, troponin I 0 .015, BNP 460. IMAGING DATA: On 09/25/2017, chest x-ray shows no edema or pleural effusion. ASSESSMENT AND PLAN: 1. End-stage renal disease - I have scheduled this patient for a 4-hour hemodialysis in a.m. Fluid removal only as tolerated. 2. Anemia, currently on weekly Epogen. Received last Epogen dose early this week. 3. Renal osteodystrophy. I would suggest we continue calcitriol 0.25 mcg tab daily and Tums 500 mg tab t.i.d. with meals. Agree with current management. The patient being ruled out for myocardial infarction.
--- NOTE | 2017-09-26 01:04 | HP ---
CHIEF COMPLAINT: Chest pain. HISTORY OF PRESENT ILLNESS: The patient is a very pleasant 62-year-old male with a history of end-st age renal disease on dialysis who presented to the hospital with complaints of chest pain. Upon furt her evaluation of the patient, patient stated that he did not really have chest pain. The patient st ated that patient currently is undocumented and in order to get him to get dialysis, he has to come i nto the ER. The patient denies any chest pain or shortness of breath. He does complain of some pain on his right jawline which has been going on for the past 2 or 3 days. He denies any fevers or chil ls. Per notes, it seems that patient's cause of end-stage renal disease was due to renal stones. Matti streeter does have a graft on his left hand. PAST MEDICAL HISTORY: As of the following diabetes. MEDICATION: He is not on any new medication. PAST SURGICAL HISTORY: He has amputation of the toes. SOCIAL HISTORY: The patient normally used to smoke 3 cigarettes a day. Denies any alcohol use or dr ug use. 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 FAMILY HISTORY: Denies any history of renal disease or heart disease. REVIEW OF SYSTEMS: All negative except for the ones mentioned above in the HPI. PHYSICAL EXAMINATION: VITAL SIGNS: Patient's temperature is 98.5, 76, 18, 93% room air, 150/73. GENERAL: He is awake, alert, oriented x3, he is eating. Does not appear to be toxic. HEENT: Normocephalic, atraumatic. He does have some mild tenderness upon palpation around his right mandible area, but upon looking into his buccal cavity, he does have some cavities in his teeth; how ever, no redness upon palpation of his inner part of his buccal mucosa. CARDIOVASCULAR: S1, S2 present. No murmurs, rubs or gallops. LUNGS: Clear to auscultation, rhonchi or wheezes noted. ABDOMEN: Soft, nontender. Bowel sounds heard x2. EXTREMITY: He does have a fistula to his left arm. EXTREMITIES: No pedal pulses are present x2. No edema. NEUROLOGIC: No focal deficits noted. LABORATORY DATA AND IMAGING DATA: WBCs of 7.3, hemoglobin of 8.0, hematocrit of 24.8, platelets of 4 02. Sodium of 134, potassium of 5.3, BUN of 30, creatinine 7.37, his gap is 19. His troponins x3 we re negative. BNP is 460. EKG reviewed, no acute changes noted. ASSESSMENT AND PLAN: The patient is a very pleasant 62-year-old male who presented to the hospital f or chest pain. However, upon further evaluation, patient denied any chest pain and shortness of robbie th. This was asked using an technical support engineer and also multiple times. 1. End-stage renal disease on dialysis. We will consult Nephrology and patient will be dialyzed holly orrow. 2. Mild hyperkalemia. We will continue to monitor if nothing significant. 3. Elevated anion gap metabolic acidosis, most likely secondary to his end-stage renal disease.
[2017-09-26 05:14] LABS: Cardiac Risk 4.5 (Less than 4.5)
[2017-09-26] MEDS ORDERED: Ferrous Sulfate 325 MG TAB PO SCH (08:00)
[2017-09-26] MEDS ORDERED: Aspirin 325 MG TAB PO SCH (09:00)
[2017-09-26 13:23] VITALS: BP 90/50; TEMP 98.1
--- NOTE | 2017-09-26 14:08 | PRG ---
DATE OF SERVICE: 09/26/2017 SERVICE: Renal Medicine. SUBJECTIVE: Mr. Meek is a 62-year-old male undergoing hemodialysis. He has end-stage re nal disease secondary to presumed diabetic nephropathy. I am at the bedside supervising his dialysis . No new complaints. No chest pain or shortness of breath. He was admitted for chest pain, but has ruled out. OBJECTIVE: VITAL SIGNS: Blood pressure 136/78, heart rate 71, respiratory rate 16, temperature 98.5, pulse oxim etry 97%. GENERAL: Noted to be awake, alert, comfortable, not in overt distress. SKIN: Adequate turgor. HEENT: Slightly pale conjunctivae, anicteric sclerae. NECK: No neck mass, no carotid bruits, no JVD. CHEST: No deformities. LUNGS: Clear breath sounds. No wheezing, no crackles. HEART: Normal sinus rhythm. No murmur, no gallops or rubs. ABDOMEN: Globular, soft, nontender, no masses. EXTREMITIES: No edema, no deformities. MEDICATIONS: Of 09/26/2017 was reviewed. LABORATORY DATA: Of 09/25/2017, hemoglobin 8.0. Sodium 134, potassium 5.3, chloride 99, carbon diox tierney 21, BUN 38, creatinine 7.37. Lipase 30. Troponin I 0.017. ASSESSMENT AND PLAN: End-stage renal disease, stable. Continuing 3 times a week hemodialysis, maxin g out fluid as tolerated. Currently, unable to find outpatient dialysis placement. The patient will come back on a p.r.n. basis to the hospital. A long discussion regarding possible placement with an outside PCP, which will include other states. This was discussed with his niece.
[2017-09-26 14:57] LABS: Anion Gap 14 mmol/L (10-20); BUN (Urea Nitrogen) 16 mg/dL (8.4-25.7); Calc. Creatinine Clearance 17 mL/min (70-130); Calcium 8.8 mg/dL (7.8-10.44); Carbon Dioxide 28 mmol/L (23-31); Chloride 98 mmol/L (98-107); Estimated GFR-MDRD 15; Glucose 211 mg/dL (80-115); Potassium 3.9 mmol/L (3.5-5.1); Sodium 136 mmol/L (136-145)
--- NOTE | 2017-09-27 10:49 | DIS ---
DATE OF ADMISSION: 09/25/2017 DATE OF DISCHARGE: 09/26/2017 ADMITTING DIAGNOSES: 1. End-stage renal disease on hemodialysis with shortness of breath. 2. End-stage renal disease, new onset on hemodialysis. SECONDARY DIAGNOSES: 1. Hyperkalemia. 2. Hypertension. 3. Type 2 diabetes mellitus. 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 The patient is unfunded and could not get any dialysis. Elsewhere, he had to return back to the ER. The patient presented to the ER a nd was noted to have elevated potassium and the patient underwent emergent dialysis. Following dialy sis, his symptoms got better and his electrolytes were normal and patient was advised to have followu p care with Nephrology who would accept his care. As the patient was unfunded and had no documentati on, juan carlos could not be provided as per the case management. So per Nephrology, patient was okay to be discharged as his electrolytes were normal and patient was dialyzed today on the day of discharge . The patient was discharged home in stable condition. PHYSICAL EXAMINATION: VITAL SIGNS: On the day of discharge, blood pressure 136/78, heart rate 71, respiratory rate 16, sat uration 98%. GENERAL: The patient is moderately built and moderately nourished. He does not appears to be in acu te distress at this time. Alert and oriented x3. HEENT: Atraumatic, normocephalic, PERRLA. Extraocular movement intact. CARDIOVASCULAR: S1, S2 normal. No murmurs, rubs or gallops. LUNGS: Bilateral air entry was equal. No wheezing, no crackles. MUSCULOSKELETAL: No calf tenderness. No pedal edema. No joint tenderness, no joint swelling. HOME MEDICATIONS: None. DISCHARGE INSTRUCTIONS: Patient's niece was explained about the patient need to be having a Nephrolo gy followup and need to find a primary care physician who can accept. Now all the information from [facility] child support case officer has been provided to the family to take care of the patient and patient's family did show understanding of the situation. The patient was discharged home in stable condition. I spent less than 35 minutes on day of discharge.
== END 2017-09-26 16:10 | disposition home or self-care (01) ==
LOC: ERS 09:34 → 2SW 13:33 → INTOOBSV 13:33
PROVIDERS: ADMIT Internal Medicine; ATTEND Internal Medicine
DX: R07.9 Chest pain, unspecified (principal); I12.0 Hypertensive chronic kidney disease with stage 5 chronic kidney disease or end stage renal disease; E11.22 Type 2 diabetes mellitus with diabetic chronic kidney disease; N18.6 End stage renal disease; E87.5 Hyperkalemia; F17.210 Nicotine dependence, cigarettes, uncomplicated; N25.0 Renal osteodystrophy; D63.1 Anemia in chronic kidney disease; Z99.2 Dependence on renal dialysis; Z79.899 Other long term (current) drug therapy
CPT/HCPCS: 36415; 71045; 80048; 80053; 80061; 82553; 83690; 83880; 84484; 85025; 90935; 93005; 94760; 99406; G0257; G0378

== ENCOUNTER 2017-10-04 08:58 | Observation (INO) | payer SELFPAY ==
[2017-10-04 09:30] LABS: #Basophils 0.1 thou/uL (0.0-0.2); #Eosinphils 0.5 thou/uL (0.0-0.7); #Lymphocytes 1.3 thou/uL (1.20-3.40); #Monocytes 0.5 thou/uL (0.11-0.59); #Neutrophils 3.5 thou/uL (1.40-6.50); %Lymphocytes 22.4 % (21.0-51.0); %Neutrophils 59.6 % (42.0-75.0); Hemoglobin 7.9 g/dL (14.0-18.0); Mean Corpuscular Hemoglobin 28.3 pg (27.0-31.0); Mean Corpuscular Volume 85.6 fL (78.0-98.0); Mean Platelet Volume 7.1 fL (7.4-10.4); Platelet Count 487 thou/uL (130-400); RBC Distribution Width 14.3 % (11.5-14.5); Red Blood Cell (RBC) Count 2.81 mill/uL (4.70-6.10); White Blood Cell (WBC) Count 5.9 thou/uL (4.8-10.8)
[2017-10-04 09:51] LABS: ALT (SGPT) 40 U/L (8-55); AST (SGOT) 43 U/L (5-34); Albumin 3.7 g/dL (3.4-4.8); Alkaline Phosphatase 66 U/L (40-150); Anion Gap 20 mmol/L (10-20); BUN (Urea Nitrogen) 109 mg/dL (8.4-25.7); Bilirubin, Total 0.5 mg/dL (0.2-1.2); CK (CPK) 42 U/L (30-200); Calc. Creatinine Clearance 0 mL/min (70-130); Calcium 8.6 mg/dL (7.8-10.44); Carbon Dioxide 13 mmol/L (23-31); Chloride 109 mmol/L (98-107); Estimated GFR-MDRD 5; Globulin 2.8 g/dL (2.4-3.5); Glucose 133 mg/dL (80-115); Lipase 113 U/L (8-78); Potassium 4.8 mmol/L (3.5-5.1); Protein, Total 6.5 g/dL (5.8-8.1); Sodium 137 mmol/L (136-145)
[2017-10-04 09:54] LABS: CKMB 1.4 ng/mL (0-6.6); Troponin I Less than 0.010 ng/mL (< 0.028)
--- NOTE | 2017-10-04 10:40 | RAD ---
AP VIEW OF THE CHEST: INDICATION: Weakness. COMPARISON: Prior exam dated 09/25/17. FINDINGS: Stable mild cardiomegaly. Right IJ dialysis catheter is unchanged. There is mild left basilar atele ctasis. The right lung is clear. Osseous structures reveal no acute abnormality. IMPRESSION: Stable mild left basilar atelectasis. POS: [facility]
[2017-10-04] MEDS ORDERED: Heparin 1,000 UNITS/ML VIAL ONE (11:11)
--- NOTE | 2017-10-04 11:47 | PRG ---
DATE OF SERVICE: 10/04/2017 SUBJECTIVE: Mr. Eduardo Meek is a 62-year-old male with ESRD secondary to presumed diabetic nephropathy and reported today here for generalized weakness. His last dialysis was on 09/26/2017. Due to personal reasons, the patient could not be placed on outpatient dialysis. We are consulted f or his dialysis. I did review his lab work. He was mildly anemic and creatinine was noted at 10. F or this reason, we will schedule him for dialysis today for 3 hours and then do another consecutive d ialysis of 3 hours tomorrow. No other complaints. No chest pain or shortness of breath. He does co mplain of generalized malaise. This could be related from his anemia. OBJECTIVE: VITAL SIGNS: Blood pressure was noted at 120/70, heart rate 70. GENERAL: Awake, alert, comfortable, not in distress. SKIN: Adequate turgor. HEENT: Slightly pale conjunctivae, anicteric sclerae. NECK: No neck mass, no carotid bruits. No JVD. LUNGS: Clear breath sounds, no wheezing, no crackles. HEART: Normal sinus rhythm. No murmur, no gallops or rubs. ABDOMEN: Globular, soft, nontender, no masses. EXTREMITIES: No edema. Positive for AV fistula - this is partially maturing now. He still has a di alysis catheter on the right IJ. MEDICATIONS: Of 10/04/2017, calcitriol 0.25 mcg every day, Tums 1000 mg t.i.d. with meals, Procrit 1 0,000 units subcutaneously every 7 days. LABORATORY DATA: Of 10/04/2017, white count 5.9, hemoglobin 7.9, hematocrit 24, sodium 137, potassiu m 4.8, chloride 109, carbon dioxide 13, BUN 109, creatinine 10.05, GFR 5 mL per minute, AST 43, ALT 4 0, BNP 759, lipase 113. X-RAY FINDINGS: Chest x-ray shows no CHF. ASSESSMENT AND PLAN: 1. End-stage renal disease - due to this metabolic acidosis and BUN of more than 100, we will do frank lysis for 3 hours. We will then do another back to back dialysis in a.m. for another 3 hours. Again , fluid removal only as tolerated by this patient. 2. Anemia. Restart Epogen 10,000 units subcu every week. 3. Elevated PTH/phosphorus. Continue Tums 1000 mg p.o. t.i.d. with meals, and calcitriol 0.25 mcg 2 every day. Please note that we can discharge this patient after dialysis tomorrow. Overall, agree with current management.
[2017-10-04] MEDS ORDERED: Epoetin (ESRD) 10,000 UNITS/ML VIAL SC SCH (12:00)
[2017-10-04] MEDS ORDERED: Ondansetron ODT 4 MG TAB SL PRN (12:43)
[2017-10-04] MEDS ORDERED: Ondansetron HCl/PF 4 MG/2 ML Vial IVP PRN (12:43)
[2017-10-04 13:09] VITALS: BMI 26.2
[2017-10-04] MEDS: Calcium Carbonate 500 MG ChewTAB PO SCH ×2 (13:26→16:25)
[2017-10-04] MEDS ORDERED: Acetaminophen 650 MG Suppository PR PRN (14:10)
[2017-10-04] MEDS ORDERED: Acetaminophen 325 MG TAB PO PRN (14:10)
[2017-10-04] MEDS ORDERED: Bisacodyl 5 MG TAB PO PRN (14:10)
[2017-10-04] MEDS ORDERED: Dextrose 50% Abboject 50 ML SYRINGE SLOW IVP PRN (14:24)
[2017-10-04] MEDS ORDERED: HumaLOG 300 UNITS/3 ML VIAL SC PRN (14:24)
[2017-10-04] MEDS ORDERED: Dextrose 5% in Water 1,000 ML IV PRN (14:24)
--- NOTE | 2017-10-04 14:34 | HP ---
[facility] CHIEF COMPLAINT: Generalized weakness. HISTORY OF PRESENT ILLNESS: Mr. Eduardo Meek is a pleasant 62-year-old gentleman who was seen at [facility] on 10/04/2017. He was hospitalized at this facility from 09/25/2017-0 09/26/2017 for end-stage renal disease on hemodialysis with shortness of breath and newly started on d ialysis during that hospitalization. He reports doing well until a couple of days ago. At that time, he started having generalized weakne ss. He denies any cough, fevers or chills. He denies any nausea or vomiting. He denies any diarrhe a. He denies any abdominal pain. REVIEW OF SYSTEMS: All other systems reviewed and found to be negative. PAST MEDICAL HISTORY: Diabetes mellitus type 2, end-stage renal disease on hemodialysis. PAST SURGICAL HISTORY: Back surgery, dialysis fistula placed left forearm on 09/24/2017, dialysis po rt right chest. SOCIAL HISTORY: The patient is a current smoker, denies recreational drug use. Reports occasional a lcohol use. FAMILY HISTORY: No history of premature coronary artery disease. ALLERGIES: No known drug allergies. CURRENT MEDICATIONS: Iron 325 mg daily. PHYSICAL EXAMINATION: GENERAL: On examination, Mr. Eduardo Meek is awake and alert, not in acute distress. VITAL SIGNS: Blood pressure is 123/62, pulse 53, respiratory rate 12, oxygen saturation 98% on room air and he is afebrile. EYES: No scleral icterus. No conjunctival pallor. ENT: Moist mucosal membranes, no oropharyngeal erythema or exudates. NECK: Supple, nontender, trachea is midline. RESPIRATORY: Accessory muscles of breathing are not active. Chest wall movements are symmetric bila terally. LUNGS: Reveals bibasilar crackles. CARDIOVASCULAR: S1 and S2 are heard, regular. Peripheral pulses are palpable. No carotid bruit, no pericardial rub. ABDOMEN: Soft, nontender, bowel sounds are heard, no hepatomegaly, no splenomegaly. MUSCULOSKELETAL: Power is 5/5 in all 4 extremities. SKIN: No rashes or subcutaneous nodules. LYMPHATIC: No cervical lymphadenopathy. PSYCHIATRIC: Normal mood, normal affect, patient is oriented to person and place, not to time. LABORATORY DATA: Mr. Eduardo Meek' labs and investigations were reviewed. I reviewed his electrocar diogram, which shows sinus bradycardia, no ST changes to suggest an acute coronary syndrome. I also reviewed his chest x-ray, which does not show any pulmonary infiltrates. He has normal white count, normocytic anemia with hemoglobin 7.9, thrombocythemia with platelet count of 487,000, last known amanda telet count 402,000 on 09/25/2017, normal sodium, normal potassium, elevated blood urea nitrogen of 1 09, elevated creatinine of 10.05, unremarkable liver profile, elevated BNP of 759 and elevated lipase of 113. ASSESSMENT AND PLAN: Mr. Eduardo Meek is a pleasant 62-year-old gentleman who was seen at [facility] on 10/04/2017. His problem list includes: 1. Generalized weakness: Most likely secondary to end-stage renal disease, noncompliance with dialy sis. 2. End-stage renal disease on dialysis. Patient will be admitted to the hospital. Nephrology Servi ce will be consulted for dialysis. 3. Diabetes mellitus type 2: Start Accu-Cheks, insulin sliding scale. 4. Tobacco abuse: Start nicotine replacement therapy, counseled patient regarding tobacco cessation . LEVEL OF RISK: High. LEVEL OF COMPLEXITY: High.
[2017-10-04] MEDS: Nicotine 14 MG PATCH TD SCH (15:49)
[2017-10-04] MEDS: Heparin 5,000 UNITS/ML VIAL SC SCH ×2 (15:49→21:05)
[2017-10-05 06:04] LABS: #Basophils 0.1 thou/uL (0.0-0.2); #Eosinphils 0.6 thou/uL (0.0-0.7); #Lymphocytes 1.7 thou/uL (1.20-3.40); #Monocytes 0.6 thou/uL (0.11-0.59); #Neutrophils 2.7 thou/uL (1.40-6.50); %Basophils 1.4 % (0.0-1.0); %Eosinophils 10.3 % (0.0-10.0); %Lymphocytes 29.5 % (21.0-51.0); %Monocytes 10.6 % (0.0-10.0); %Neutrophils 48.2 % (42.0-75.0); Hemoglobin 8.2 g/dL (14.0-18.0); Mean Corpuscular HGB CONC 33.7 g/dL (32.0-36.0); Mean Corpuscular Hemoglobin 28.4 pg (27.0-31.0); Mean Corpuscular Volume 84.2 fL (78.0-98.0); Mean Platelet Volume 7.2 fL (7.4-10.4); Platelet Count 455 thou/uL (130-400); RBC Distribution Width 14.3 % (11.5-14.5); Red Blood Cell (RBC) Count 2.88 mill/uL (4.70-6.10); White Blood Cell (WBC) Count 5.7 thou/uL (4.8-10.8)
[2017-10-05 06:12] LABS: Anion Gap 11 mmol/L (10-20); BUN (Urea Nitrogen) 42 mg/dL (8.4-25.7); Calc. Creatinine Clearance 13 mL/min (70-130); Calcium 8.6 mg/dL (7.8-10.44); Carbon Dioxide 27 mmol/L (23-31); Chloride 103 mmol/L (98-107); Estimated GFR-MDRD 11; Glucose 125 mg/dL (80-115); Potassium 3.3 mmol/L (3.5-5.1); Sodium 138 mmol/L (136-145)
[2017-10-05] MEDS ORDERED: Calcitriol 0.25 MCG CAP PO SCH (09:00)
[2017-10-05] MEDS ORDERED: Heparin 10,000 UNITS/ 10 ML VIAL ONE (10:00)
[2017-10-05] MEDS: Calcium Carbonate 500 MG ChewTAB PO SCH ×2 (10:18→12:17)
[2017-10-05] MEDS: Heparin 5,000 UNITS/ML VIAL SC SCH ×2 (10:18→16:16)
[2017-10-05] MEDS: Nicotine 14 MG PATCH TD SCH (16:16)
[2017-10-05 16:23] VITALS: BP 146/67; TEMP 97.9
--- NOTE | 2017-10-06 00:56 | DIS ---
PRIMARY CARE PROVIDER: Nikki Crow NP DATE OF ADMISSION: 10/04/2017 DATE OF DISCHARGE: 10/05/2017 DISCHARGE DIAGNOSES: Volume overload. CONDITION OF PATIENT ON THE DAY OF DISCHARGE: Stable. I assessed Mr. Eduardo Meek on the day of dis charge. He denies any chest pain or shortness of breath. Vital signs are stable. S1 and S2 are hea rd, regular. Lungs are clear to auscultation bilaterally. DISCHARGE MEDICATIONS: No change was made to his preadmission home medications, which include Tums 5 00 mg daily, Procrit 1500 units subcutaneously every week, ferrous sulfate 325 mg daily, and levoflox acin 250 mg every other day. HOSPITAL COURSE: Mr. Clark is a pleasant 62-year-old gentleman, who was admitted to [facility] on 10/04/2017 for volume overload in the context of noncompliance with dialysis. He was seen by Nephrology Service. He underwent hemodialysis on 10/04/2017 and on 10/05/2017 with sign ificant improvement. He is being discharged home in a stable condition. Many thanks for allowing me to participate in your patient's care. Please feel free to contact me wi th any questions or concerns. On 10/05/2017, Mr. Eduardo Meek has white count of 5700, hemoglobin 8.2, platelet count 455,000. Sod ium 138, potassium 3.3, blood urea nitrogen 42 and creatinine 5.44 prior to dialysis on 10/05/2017. DISCHARGE DESTINATION: Home.
[2017-10-06] MEDS ORDERED: Calcium Carbonate 500 MG ChewTAB PO SCH (09:00)
[2017-10-06] MEDS ORDERED: Ferrous Sulfate 325 MG TAB PO SCH (09:00)
--- NOTE | 2017-10-09 12:14 | EKG ---
Test Reason : Blood Pressure : / mmHG Vent. Rate : 057 BPM Atrial Rate : 057 BPM P-R Int : 168 ms QRS Dur : 098 ms QT Int : 416 ms P-R-T Axes : 039 031 037 degrees QTc Int : 404 ms Sinus bradycardia Peaked T waves Otherwise normal ECG Confirmed by JAIRO MOSELEY, MARILEE ([id number]), telegraph editor MITRA STOUT ([id number]) on 10/09/2017 12:14:24 PM Referred By: Confirmed By:MARILEE GILL MD
[2017-10-12] MEDS ORDERED: Epoetin (ESRD) 10,000 UNITS/ML VIAL SC SCH (09:00)
== END 2017-10-05 16:45 | disposition home or self-care (01) ==
LOC: ERS 08:58 → 2SW 10:55
PROVIDERS: ADMIT Internal Medicine; ATTEND Internal Medicine
DX: E87.70 Fluid overload, unspecified (principal); R53.1 Weakness; E11.22 Type 2 diabetes mellitus with diabetic chronic kidney disease; N18.6 End stage renal disease; D63.1 Anemia in chronic kidney disease; F17.210 Nicotine dependence, cigarettes, uncomplicated; Z79.899 Other long term (current) drug therapy; Z91.15 Patient's noncompliance with renal dialysis; Z99.2 Dependence on renal dialysis
CPT/HCPCS: 36415; 36416; 71045; 80048; 80053; 82553; 83690; 83880; 84484; 85025; 90935; 93005; 96372; G0257; G0378; J1644; Q4081

== ENCOUNTER 2017-10-26 08:23 | Observation (INO) | payer SELFPAY ==
[2017-10-26 08:49] LABS: Hemoglobin 8.3 g/dL (14.0-18.0); Mean Corpuscular HGB CONC 32.9 g/dL (32.0-36.0); Mean Corpuscular Hemoglobin 27.8 pg (27.0-31.0); Mean Corpuscular Volume 84.4 fL (78.0-98.0); Mean Platelet Volume 10.2 fL (7.4-10.4); Platelet Count 144 thou/uL (130-400); RBC Distribution Width 14.6 % (11.5-14.5); White Blood Cell (WBC) Count 7.9 thou/uL (4.8-10.8)
[2017-10-26 09:08] LABS: Troponin I Less than 0.010 ng/mL (< 0.028)
[2017-10-26 09:12] LABS: ALT (SGPT) 19 U/L (8-55); AST (SGOT) 12 U/L (5-34); Albumin 4.1 g/dL (3.4-4.8); Alkaline Phosphatase 62 U/L (40-150); Anion Gap 18 mmol/L (10-20); BUN (Urea Nitrogen) 111 mg/dL (8.4-25.7); Bilirubin, Total 0.5 mg/dL (0.2-1.2); Calc. Creatinine Clearance 0 mL/min (70-130); Calcium 8.2 mg/dL (7.8-10.44); Chloride 116 mmol/L (98-107); Estimated GFR-MDRD 5; Globulin 2.8 g/dL (2.4-3.5); Glucose 116 mg/dL (80-115); Potassium 4.3 mmol/L (3.5-5.1); Protein, Total 6.9 g/dL (5.8-8.1); Sodium 138 mmol/L (136-145)
[2017-10-26 09:19] LABS: Carbon Dioxide 8 mmol/L (23-31)
[2017-10-26 09:24] LABS: Burr Cells MODERATE= 6-15 cells (100X) (0-1/hpf); Eosinophils 8 % (0-10); Hypochromia SLIGHT = 6-15 cells (100X) (0-5/hpf); Lymphocytes 14 % (21-51); MDiff Complete? YES; Monocytes 8 % (0-10); Neutrophil 69 % (42-75); PLT Morphology Comment Appears Adequate
[2017-10-26] MEDS ORDERED: Dextrose 5% in Water 1,000 ML IV PRN (12:24)
[2017-10-26] MEDS ORDERED: Dextrose 50% Abboject 50 ML SYRINGE SLOW IVP PRN (12:24)
[2017-10-26] MEDS ORDERED: Bisacodyl 5 MG TAB PO PRN (12:24)
[2017-10-26] MEDS ORDERED: HumaLOG 300 UNITS/3 ML VIAL SC PRN (12:24)
--- NOTE | 2017-10-26 12:39 | HP ---
DATE OF ADMISSION: 10/26/2017 PRIMARY CARE PROVIDER: Nikki Crow NP CHIEF COMPLAINT: Generalized weakness. HISTORY OF PRESENT ILLNESS: Mr. Eduardo Meek is a pleasant 62-year-old gentleman who was seen at [facility] on 10/26/2017. He was hospitalized at this facility from 10/04 to 10/05 of this year for volume overload. He underwent hemodialysis. He has not had hemodialysis since then. For the last couple of days, he has had generalized weakness. He denies any cough, fevers or chills. He denies any nausea or vomiting. He denies any abdominal pain. He came to the emergency room because of ongoing generalized weakness. REVIEW OF SYSTEMS: All other systems reviewed and found to be negative. PAST MEDICAL HISTORY: End-stage renal disease on hemodialysis, diabetes mellitus type 2. PAST SURGICAL HISTORY: Back surgery, dialysis fistula placed in left forearm on 09/24/2017, dialysis port right chest. SOCIAL HISTORY: The patient is a current smoker. Denies recreational drug use. Reports occasional alcohol use. ALLERGIES: No known drug allergies. CURRENT MEDICATIONS: Iron 325 mg daily, calcium/vitamin D 1 tablet daily. FAMILY HISTORY: No family history of premature coronary artery disease. PHYSICAL EXAMINATION: GENERAL: Mr. Eduardo Meek is awake and alert, not in acute distress. VITAL SIGNS: Blood pressure is 124/68, pulse 54, respiratory rate 13, oxygen saturation 99% on room air and he is afebrile. EYES: No scleral icterus. No conjunctival pallor. ENT: Moist mucosal membranes. No oropharyngeal erythema or exudates. NECK: Supple, nontender. Trachea is midline. RESPIRATORY: Accessory muscles of breathing are not active. Chest wall movements are symmetric bilaterally. LUNGS: Reveal a few bibasilar crackles. CARDIOVASCULAR: S1 and S2 are heard, regular. Peripheral pulses palpable. No carotid bruit, no pericardial rub. ABDOMEN: Soft, nontender. Bowel sounds are heard. No hepatomegaly, no splenomegaly. NEUROLOGIC: Cranial nerves II-XII intact. Deep tendon reflexes are 2+. MUSCULOSKELETAL: Power is 5/5 in all 4 extremities. SKIN: No rashes or subcutaneous nodules. LYMPHATIC: No cervical lymphadenopathy. PSYCHIATRIC: Normal mood, normal affect. The patient is oriented to person and place, not to time. LABORATORY DATA: Mr. Eduardo Meek' labs and investigations were reviewed. He had an electrocardiogram, which shows sinus bradycardia. No ST changes to suggest an acute coronary syndrome. He has normal white count, normocytic anemia with hemoglobin 8.3, normal platelet count, normal sodium, normal potassium, decreased carbon dioxide of 8, elevated blood urea nitrogen of 111, elevated creatinine of 10.51, unremarkable liver profile and normal troponin I. ASSESSMENT AND PLAN: Mr. Eduardo Meek is a pleasant 62-year-old gentleman who was seen at [facility] on 10/26/2017. His problem list includes: 1. Generalized weakness: Most likely secondary to uremia from noncompliance with regular hemodialysis. The patient will be admitted to the hospital for further management. 2. Metabolic acidosis: Likely due to missed hemodialysis. The patient will be dialyzed and his electrolytes rechecked. 3. End-stage renal disease on dialysis: Nephrology Service has been consulted by emergency room physician for hemodialysis. 4. Volume overload: Clinically, the patient appears to be in volume overload. We will reassess after dialysis. 5. Diabetes mellitus type 2: Start Accu-Cheks, insulin sliding scale. 6. Tobacco abuse: The patient has been counseled regarding tobacco cessation. Start nicotine replacement therapy. LEVEL OF RISK: Moderate. LEVEL OF COMPLEXITY: Moderate. MTDD
[2017-10-26 13:43] VITALS: BMI 29.3
[2017-10-26] MEDS: Acetaminophen 325 MG TAB PO PRN (18:38)
[2017-10-26] MEDS: Nicotine 21 MG PATCH TD SCH (18:40)
[2017-10-27 04:23] LABS: #Basophils 0.1 thou/uL (0.0-0.2); #Eosinphils 0.7 thou/uL (0.0-0.7); #Lymphocytes 2.2 thou/uL (1.20-3.40); #Monocytes 0.5 thou/uL (0.11-0.59); #Neutrophils 4.5 thou/uL (1.40-6.50); %Basophils 0.8 % (0.0-1.0); %Eosinophils 8.6 % (0.0-10.0); %Lymphocytes 27.7 % (21.0-51.0); %Monocytes 6.3 % (0.0-10.0); %Neutrophils 56.5 % (42.0-75.0); Hemoglobin 7.7 g/dL (14.0-18.0); Mean Corpuscular HGB CONC 33.8 g/dL (32.0-36.0); Mean Corpuscular Hemoglobin 27.8 pg (27.0-31.0); Mean Corpuscular Volume 82.3 fL (78.0-98.0); Mean Platelet Volume 9.8 fL (7.4-10.4); Platelet Count 128 thou/uL (130-400); RBC Distribution Width 14.4 % (11.5-14.5); Red Blood Cell (RBC) Count 2.79 mill/uL (4.70-6.10); White Blood Cell (WBC) Count 7.9 thou/uL (4.8-10.8)
[2017-10-27 04:37] LABS: Anion Gap 14 mmol/L (10-20); BUN (Urea Nitrogen) 51 mg/dL (8.4-25.7); Calc. Creatinine Clearance 12 mL/min (70-130); Calcium 8.3 mg/dL (7.8-10.44); Carbon Dioxide 22 mmol/L (23-31); Chloride 106 mmol/L (98-107); Estimated GFR-MDRD 10; Glucose 104 mg/dL (80-115); Sodium 139 mmol/L (136-145)
[2017-10-27 04:53] LABS: Potassium 2.9 mmol/L (3.5-5.1)
[2017-10-27] MEDS ORDERED: Potassium Chloride 10 MEQ TAB PO SCH (05:15)
[2017-10-27] MEDS: Acetaminophen 325 MG TAB PO PRN (05:15)
[2017-10-27] MEDS ORDERED: Calcitriol 0.25 MCG CAP PO SCH ×2 (09:00→14:00)
[2017-10-27] MEDS ORDERED: Epoetin (ESRD) 20,000 UNITS/ML SC SCH ×2 (09:00→14:00)
[2017-10-27] MEDS ORDERED: Heparin 10,000 UNITS/ 10 ML VIAL ONE (09:00)
--- NOTE | 2017-10-27 09:03 | PRG ---
DATE OF SERVICE: 10/27/2017 SUBJECTIVE: Mr. Meek is a 62-year-old male with ESRD. We are being consulted for his he modialysis. He is unable to secure an outpatient dialysis placement. I am currently at the bedside supervising his dialysis. He is tolerating this dialysis. PHYSICAL EXAMINATION: VITAL SIGNS: Blood pressure is 133/69 with a heart rate of 59, respiratory rate 16, temperature 98.5 , pulse ox 98%. GENERAL EXAM: Awake, alert, comfortable, not in distress. SKIN: Adequate turgor. HEENT: Slightly pale conjunctivae, anicteric sclerae. NECK: No neck mass, no carotid bruits, no JVD. CHEST: No deformities. LUNGS: Clear breath sounds. HEART: Normal sinus rhythm. No murmur, no gallops, no rubs. ABDOMEN: Globular, soft, nontender, no masses. EXTREMITIES: No edema, no deformities. Medications of 10/27/2017 were reviewed. LABORATORY DATA: Laboratories of 10/27/2017, white count 7.9, hemoglobin 7.7. Sodium 139, potassium 3, chloride 106, carbon dioxide 22, BUN 51, creatinine 5.86, calcium is 8.3. 10/26/2017, BUN 111, c reatinine 10.51. ASSESSMENT AND PLAN: 1. End-stage renal disease - the patient received hemodialysis yesterday. I am doing a 4-hour hemod ialysis with him today. Fluid removal only as tolerated. 2. Anemia. Resume Epogen 7500 units subcutaneously every week. 3. Increased PTH/hyperphosphatemia. I would suggest we maintain his home medications of calcitriol at 0.25 mcg tab a day as well as the ferrous sulfate. Suggestion is also to maintain him on Tums 500 mg 1 tab t.i.d. with meals.
[2017-10-27] MEDS ORDERED: Calcium Carbonate 500 MG ChewTAB PO SCH (12:00)
[2017-10-27 12:24] VITALS: BP 137/74; TEMP 97.2
--- NOTE | 2017-10-27 14:10 | DIS ---
PRIMARY CARE PHYSICIAN: Nikki Crow NP DATE OF ADMISSION 10/26/2017 DATE OF DISCHARGE: 10/27/2017 DISCHARGE DIAGNOSES: 1. Generalized weakness. 2. Metabolic acidosis. 3. Volume overload. CONDITION OF PATIENT ON THE DAY OF DISCHARGE: Stable. I assessed Mr. Eduardo Meek on the day of discharge. He denies any chest pain or shortness of breath . Vital signs are stable. S1 and S2 are heard, regular. Lungs are clear to auscultation bilaterall y. CONSULTATIONS DURING THIS HOSPITALIZATION: Nephrology, Dr. Yates. HOSPITAL COURSE: Mr. Eduardo Meek is a pleasant 62-year-old gentleman who was admitted to [facility] on 10/26/2017 for generalized weakness and volume overload. He was seen by N ephrology Service and underwent hemodialysis. He improved symptomatically. He is being discharged h ome in a stable condition. DISCHARGE MEDICATIONS: Calcitriol 0.25 mcg daily, ferrous sulfate 325 mg daily, Tums 500 mg 3 times a day with meals. Many thanks for allowing me to participate in your patient's care. Please feel free to contact me wi th any questions or concerns. He underwent dialysis on the day of discharge and has been cleared for discharge by Nephrology Brianna e. DISCHARGE DESTINATION: Home.
[2017-10-27] MEDS: Nicotine 21 MG PATCH TD SCH (14:13)
--- NOTE | 2017-11-01 11:30 | EKG ---
Test Reason : Blood Pressure : / mmHG Vent. Rate : 052 BPM Atrial Rate : 052 BPM P-R Int : 150 ms QRS Dur : 110 ms QT Int : 468 ms P-R-T Axes : 073 037 032 degrees QTc Int : 435 ms Sinus bradycardia Otherwise normal ECG No ST elevation/AR Confirmed by TERELL BISHOP DO ([id number]), commercial production editor JAKE CHANG ([id number]) on 11/01/2017 11:30:39 AM Referred By: Confirmed By:TERELL BISHOP DO
== END 2017-10-27 14:46 | disposition home or self-care (01) ==
LOC: ERS 08:23 → 2SW 10:23
PROVIDERS: ADMIT Internal Medicine; ATTEND Internal Medicine
DX: R53.1 Weakness (principal); E87.2 Acidosis; E87.70 Fluid overload, unspecified; E11.22 Type 2 diabetes mellitus with diabetic chronic kidney disease; N18.6 End stage renal disease; D63.1 Anemia in chronic kidney disease; F17.210 Nicotine dependence, cigarettes, uncomplicated; Z79.899 Other long term (current) drug therapy; Z99.2 Dependence on renal dialysis
CPT/HCPCS: 36415; 36416; 80048; 80053; 84484; 85025; 90471; 90732; 90935; 93005; 96372; G0009; G0257; G0378; J1644; Q4081

== ENCOUNTER 2017-11-16 08:59 | Observation (INO) | payer SELFPAY ==
[2017-11-16 09:52] LABS: #Eosinphils 0.6 thou/uL (0.0-0.7); #Lymphocytes 1.7 thou/uL (1.20-3.40); #Monocytes 0.7 thou/uL (0.11-0.59); #Neutrophils 5.1 thou/uL (1.40-6.50); %Basophils 0.6 % (0.0-1.0); %Eosinophils 6.9 % (0.0-10.0); %Lymphocytes 20.5 % (21.0-51.0); %Monocytes 8.9 % (0.0-10.0); %Neutrophils 63.1 % (42.0-75.0); Mean Corpuscular HGB CONC 33.1 g/dL (32.0-36.0); Mean Corpuscular Hemoglobin 27.7 pg (27.0-31.0); Mean Corpuscular Volume 83.7 fL (78.0-98.0); Mean Platelet Volume 9.7 fL (7.4-10.4); Platelet Count 149 thou/uL (130-400); RBC Distribution Width 14.9 % (11.5-14.5); Red Blood Cell (RBC) Count 2.51 mill/uL (4.70-6.10); White Blood Cell (WBC) Count 8.1 thou/uL (4.8-10.8)
[2017-11-16 10:07] LABS: ALT (SGPT) 19 U/L (8-55); AST (SGOT) 5 U/L (5-34); Albumin 3.8 g/dL (3.4-4.8); Alkaline Phosphatase 57 U/L (40-150); Bilirubin, Total 0.3 mg/dL (0.2-1.2); CK (CPK) 137 U/L (30-200); Calc. Creatinine Clearance 0 mL/min (70-130); Calcium 7.6 mg/dL (7.8-10.44); Chloride 116 mmol/L (98-107); Estimated GFR-MDRD 3; Globulin 2.9 g/dL (2.4-3.5); Glucose 123 mg/dL (80-115); Potassium 4.4 mmol/L (3.5-5.1); Protein, Total 6.7 g/dL (5.8-8.1); Sodium 139 mmol/L (136-145)
[2017-11-16 10:13] LABS: Troponin I Less than 0.010 ng/mL (< 0.028)
[2017-11-16 10:14] LABS: Carbon Dioxide Less than 8 mmol/L (23-31)
[2017-11-16 10:18] LABS: BUN (Urea Nitrogen) 128 mg/dL (8.4-25.7)
--- NOTE | 2017-11-16 10:59 | RAD ---
AP VIEW CHEST: Date: 11/16/17 INDICATION: Weakness and fluid overload. FINDINGS: Right IJ dialysis catheter is unchanged. Lungs are clear. No pleural effusion is evident. Heart size mildly prominent but stable. Pulmonary vasculature is within normal limits. IMPRESSION: Stable mild cardiomegaly. No evidence of volume overload or CHF. POS: [facility]
[2017-11-16] MEDS ORDERED: Heparin 1,000 UNITS/ML VIAL ONE (11:11)
[2017-11-16] MEDS ORDERED: Acetaminophen 325 MG TAB PO PRN (12:25)
[2017-11-16] MEDS ORDERED: Ondansetron ODT 4 MG TAB SL PRN (12:25)
[2017-11-16] MEDS ORDERED: Ondansetron HCl/PF 4 MG/2 ML Vial IVP PRN ×2 (12:25→13:48)
--- NOTE | 2017-11-16 12:31 | HP ---
PRIMARY CARE PHYSICIAN: [facility] call admission. REASON FOR ADMISSION: End-stage renal disease, needing hemodialysis, symptomatic anemia. HISTORY OF PRESENT ILLNESS: This is a 62-year-old male, who has underlying history of end-s tage renal disease, on hemodialysis. Because of legal status, the patient is not able to get a sched uled hemodialysis as an outpatient basis and that is why he requires to come to the hospital periodic ally for dialysis. His last dialysis was about 2 weeks ago. For last 2 weeks, the patient is experi encing fatigue, dyspnea, weakness. Today, in the emergency room, routine blood tests showed hemoglob in 7 and his carbon dioxide level was less than 8. His creatinine is 15 and blood urea nitrogen is 1 28. Patient does have poor appetite. He does feel intermittent itching. He does have poor sleep. He denies any orthopnea, PND, or leg swelling. He denies any fever or chills. He does make some uri ne. He denies any UTI symptoms. He denies any constipation, diarrhea, melena, or hematochezia. The patient is taking iron and calcium [id number] medication on a daily basis. He is not on any o ther medications. The patient had a tunneled hemodialysis catheter placement and hemodialysis was st arted. At the same time, patient also had AV fistula done. The patient was getting dialysis so far through the tunneled hemodialysis catheter now. AV fistula is functioning. In the emergency room, debra bhardwaj was slightly hypothermic and that is why he required Billy hugger. Patient denies any fever or chil ls at home. He denies any constipation, diarrhea, abdominal pain. REVIEW OF SYSTEMS: The following complete review of systems was negative, unless otherwise mentioned in the HPI or below: Constitutional: Weight loss or gain, ability to conduct usual activities. Sk in: Rash, itching. Eyes: Double vision, pain. ENT/Mouth: Nose bleeding, neck stiffness, pain, te nderness. Cardiovascular: Palpitations, dyspnea on exertion, orthopnea. Respiratory: Shortness of breath, wheezing, cough, hemoptysis, fever, or night sweats. Gastrointestinal: Poor appetite, abdo kirk pain, heartburn, nausea, vomiting, constipation, or diarrhea. Genitourinary: Urgency, frequen cy, dysuria, nocturia. Musculoskeletal: Pain, swelling. Neurologic/Psychiatric: Anxiety, depressi on. Allergy/Immunologic: Skin rash, bleeding tendency. Please see my HPI for pertinent positive an d negative. All other review of systems reviewed and negative except as mentioned in the HPI. ALLERGIES: No known drug allergy. CURRENT HOME MEDICATIONS: Iron 325 mg p.o. daily, calcium with vitamin D 500 mg p.o. daily. PAST MEDICAL HISTORY: ESRD, on hemodialysis; anemia of renal disease; secondary hyperparathyroidism of renal origin. PAST SURGICAL HISTORY: Tunneled hemodialysis catheter placement, AV fistula placed in 09/24/2017. PAST PSYCHIATRIC HISTORY: Reviewed and negative. SOCIAL HISTORY: The patient is smoking occasionally. He drinks alcohol occasionally. He denies any other illicit drug abuse. FAMILY HISTORY: No strong family history of premature coronary artery disease, stroke, or cancer. N o family history of ESRD. EMERGENCY ROOM COURSE: Reviewed. PHYSICAL EXAMINATION: VITAL SIGNS: On arrival, blood pressure 101/62, pulse 58, respiratory rate 18, temperature 94.2, sat uration 100% on room air, weight 60.7 kilograms. GENERAL: The patient is currently alert, awake, in no obvious acute distress. HEENT: Head: Normocephalic, atraumatic. Eyes: Pupils round, reactive to light. Extraocular muscl e intact. ENT: Oropharynx within normal limits. Moist mucous membranes. No oral lesion, no pharyn geal erythema, no exudate. NECK: Supple, no JVD, no thyromegaly, no carotid bruit. LUNGS: Clear to auscultation without any rhonchi or rales. CARDIAC: S1 and S2 appears regular. No gross murmur noted, no gallop, no rub. ABDOMEN: Soft, bowel sounds present, nontender, nondistended. No organomegaly, no mass. No right u pper quadrant tenderness, no suprapubic tenderness. BACK EXAMINATION: Unremarkable, no CVA tenderness. CHEST WALL: Patient does not have any tenderness or redness around the tunneled hemodialysis cathete r. SKIN: AV fistula is functioning well. NEUROLOGIC: Nonfocal examination. He moves all 4 limbs. Plantar bilateral flexor. PSYCHIATRIC: Normal affect. HEMATOLOGICAL SYSTEM: No lymphadenopathy. SIGNIFICANT LABORATORY DATA: CBC: WBC 8.1, hemoglobin 7.0, platelets 149. BMP: Sodium 139, potass ium 4.4, chloride 116, carbon dioxide less than 8, BUN 128, creatinine 15.03, glucose 123, calcium 7. 6. LFT: AST 5, ALT 19, alkaline phosphatase 57, albumin 3.8, CK 137, CK-MB 5.0, troponin I less carrington n 0.010. BNP 2048.7. ASSESSMENT AND PLAN: 1. End-stage renal disease, needing hemodialysis. This patient has end-stage renal disease and he i s getting periodically hemodialysis, because of legal status. He does not have any outpatient dialys is scheduled. This patient's last dialysis was about 2 weeks ago and he has uremia. He will need ad mission to the hospital. We will do dialysis today. We will consult Dr. Yates, who is his nephrologis t. The patient also will need a dialysis tomorrow and after tomorrow's dialysis, we will consider di scharging him home. 2. Anemia of renal disease. The patient will be given Procrit one time dose. Patient will get 2 un its of blood transfusion with dialysis. Ferrous sulfate 325 mg p.o. daily will be continued as well as Nephro-Emilia 1 tablet p.o. daily will be given. This patient has symptomatic anemia and that is wh y he needs a transfusion during this admission. 3. Secondary hyperparathyroidism of renal origin. We will continue Tums 1000 mg p.o. b.i.d. We khang l check phosphorus level and continue Rocaltrol 0.25 mcg p.o. daily. 4. Uremia, as mentioned in problem #1. Patient is getting dialysis. 5. Hypothermia, etiology uncertain, but most likely related with anemia. He does not have any clini donte history suggestive of any sepsis, but we will do blood culture with the dialysis. At this point, we will avoid antibiotic therapy. His temperature is already improving with Billy hugger. 6. During this admission, the patient will have dialysis through arteriovenous fistula and if arteri ovenous fistula is functioning properly, then we will ask Nephrology to remove his tunneled hemodialy sis catheter to prevent future infections. Disposition plan based on clinical course. We are expecting patient's stay in hospital 24-48 hours. Plan of care discussed with the patient and family member at bedside in the emergency room. This pa tient is continued to be high risk for readmission because of his end-stage renal disease.
[2017-11-16] MEDS ORDERED: hydrALAZINE 20 MG/ML VIAL SLOW IVP PRN (13:48)
[2017-11-16] MEDS ORDERED: Chloraseptic Spray 180 ml Bottle PO PRN (13:48)
[2017-11-16] MEDS ORDERED: Ondansetron ODT 4 MG TAB PO PRN (13:48)
[2017-11-16] MEDS ORDERED: Mag-Al 1200 mg/1200 mg/30 ML UDCUP PO PRN (13:48)
[2017-11-16] MEDS ORDERED: Loratadine 10 MG TAB PO PRN (13:48)
[2017-11-16] MEDS ORDERED: Diabetic Tussin 200 MG/10 ML UDCUP PO PRN (13:48)
[2017-11-16] MEDS ORDERED: Zolpidem Tartrate 5 MG TAB PO PRN (13:48)
[2017-11-16] MEDS ORDERED: Sodium Chloride 0.65% Nasal 44 ML BOT EA NARE PRN (13:48)
[2017-11-16] MEDS ORDERED: Senokot 8.6 MG TAB PO PRN (13:48)
[2017-11-16] MEDS ORDERED: Milk Of Magnesia 30 ML UDCUP PO PRN (13:48)
[2017-11-16] MEDS ORDERED: Loperamide HCl 2 MG CAP PO PRN (13:48)
[2017-11-16] MEDS ORDERED: Eucerin (Mineral Oil/Petrolatum,White) 30 gm Jar TOP PRN (13:48)
[2017-11-16] MEDS ORDERED: HYDROcodone/Acetaminophen 5/325 mg Tablet PO PRN (13:48)
[2017-11-16] MEDS ORDERED: Artificial Tears 18 DROP/0.9 ML EA EYE PRN (13:48)
[2017-11-16] MEDS ORDERED: Epoetin (ESRD) 10,000 UNITS/ML VIAL SC SCH (14:00)
[2017-11-16 19:17] VITALS: BMI 22.4
[2017-11-16] MEDS: Acetaminophen 325 MG TAB PO PRN (20:05)
[2017-11-16] MEDS: Calcium Carbonate 500 MG ChewTAB PO SCH (20:05)
[2017-11-16] MEDS ORDERED: Prevnar 13-Val Conj/PF 0.5 ML SYRINGE IM ONE (21:00)
[2017-11-16] MEDS ORDERED: Dextrose 5% in Water 1,000 ML IV PRN (22:31)
[2017-11-16] MEDS ORDERED: Insulin Regular 300 UNITS/3 ML VIAL SC PRN ×2 (22:31)
[2017-11-16] MEDS ORDERED: Dextrose 50% Abboject 50 ML SYRINGE IVP PRN (22:31)
--- NOTE | 2017-11-16 23:23 | PRG ---
DATE OF SERVICE: 11/16/2017 SUBJECTIVE: Mr. Meek is a 62-year-old, male with ESRD and was admitted due to uremic sig ns and symptoms. He is unable to pursue outpatient dialysis. I was consulted because the patient whittaker s not been feeling well and may be uremic. His BUN was noted to be 122 with the creatinine of 15. He was also significantly anemic, which showe d hemoglobin of 7. He underwent emergent hemodialysis this afternoon. He tolerated said treatment. He underwent a [place] dialysis. Two units of packed RBC was ordered during dialysis. The patient is feeling better after dialysis. PHYSICAL EXAMINATION: VITAL SIGNS: Blood pressure is 176/84, heart rate 71, respiratory rate 16, temperature 98.2, pulse o ximetry 99% on room air. GENERAL: Awake, alert, comfortable, not in distress. SKIN: Adequate turgor. HEENT: He has a slightly pale conjunctivae, anicteric sclerae. NECK: No neck mass, no carotid bruits, no JVD. CHEST: No deformities. LUNGS: Clear breath sounds. No wheezing, no crackles. HEART: Normal sinus rhythm. No murmur, no gallops, no rubs. ABDOMEN: Globular, soft, nontender, no masses. EXTREMITIES: No edema, no deformities. MEDICATIONS: Medications of 11/16/2017 shows ferrous sulfate 325 mg tab once a day, Tums 1000 mg p.o . b.i.d., Zofran p.r.n., Nephro-Emilia 1 tab daily. LABORATORY DATA AND X-RAY FINDINGS: On 11/16/2017, white count 8.1, hemoglobin 7, sodium 139, potass ium 4.4, chloride 106, carbon dioxide less than 8, BUN 128, creatinine 15.03, glucose 123, calcium 7. 6. BNP is 2048. On 11/16/2017, chest x-ray, no evidence of volume overload. ASSESSMENT AND PLAN: 1. End-stage renal disease/chronic renal failure-patient underwent hemodialysis for 3 hours. Fluid removal was done. He tolerated said treatment. Our plan is to resume another 3-hour hemodialysis se ssion tomorrow. Please note we used one needle using his AV fistula and one port of the dialysis cat heter. Consider using two needles with the AV fistula tomorrow. If this is successful, consider rem oving the dialysis catheter out. 2. Anemia. Resume Epogen 7,500 units subcutaneously every week. P.r.n. blood transfusion. 3. Secondary hyperparathyroidism/hypocalcemia. Restart calcitriol 0.25 mcg tab daily.
[2017-11-17] MEDS: Acetaminophen 325 MG TAB PO PRN (04:12)
[2017-11-17 04:31] LABS: Albumin 3.9 g/dL (3.4-4.8); Anion Gap 19 mmol/L (10-20); BUN (Urea Nitrogen) 77 mg/dL (8.4-25.7); BUN/Creatinine Ratio 7.57; Calc. Creatinine Clearance 7 mL/min (70-130); Carbon Dioxide 14 mmol/L (23-31); Chloride 110 mmol/L (98-107); Estimated GFR-MDRD 5; Glucose 104 mg/dL (80-115); Phosphorus 7.7 mg/dL (2.3-4.7); Potassium 3.2 mmol/L (3.5-5.1); Sodium 140 mmol/L (136-145)
[2017-11-17 04:33] LABS: #Eosinphils 0.4 thou/uL (0.0-0.7); #Lymphocytes 1.3 thou/uL (1.20-3.40); #Monocytes 0.7 thou/uL (0.11-0.59); #Neutrophils 3.9 thou/uL (1.40-6.50); %Basophils 0.7 % (0.0-1.0); %Eosinophils 6.3 % (0.0-10.0); %Lymphocytes 21.2 % (21.0-51.0); %Monocytes 10.5 % (0.0-10.0); %Neutrophils 61.3 % (42.0-75.0); Hemoglobin 9.4 g/dL (14.0-18.0); Mean Corpuscular HGB CONC 35.3 g/dL (32.0-36.0); Mean Corpuscular Volume 81.9 fL (78.0-98.0); Mean Platelet Volume 9.8 fL (7.4-10.4); Platelet Count 148 thou/uL (130-400); RBC Distribution Width 14.5 % (11.5-14.5); Red Blood Cell (RBC) Count 3.25 mill/uL (4.70-6.10); White Blood Cell (WBC) Count 6.3 thou/uL (4.8-10.8)
[2017-11-17] MEDS ORDERED: Ferrous Sulfate 325 MG TAB PO SCH (08:00)
[2017-11-17] MEDS: Calcium Carbonate 500 MG ChewTAB PO SCH (08:13)
[2017-11-17] MEDS ORDERED: Folic Acid/Vit B Comp W-C PO SCH (09:00)
[2017-11-17] MEDS ORDERED: Famotidine 20 MG TAB PO SCH (09:00)
[2017-11-17] MEDS ORDERED: Calcitriol 0.25 MCG CAP PO SCH (09:00)
--- NOTE | 2017-11-17 10:41 | PDOC.PN ---
- Subjective Encounter Start Date: 11/17/17 Encounter Start Time: 07:50 -: old records requested/rev Patient seen and examined. No new complaints. No overnight events - Objective Resuscitation Status: Resuscitation Status FULL:Full Resuscitation MAR Reviewed: Yes Vital Signs & Weight: Vital Signs (12 hours) Temp Pulse Resp BP Pulse Ox 11/17/17 08:12 98.4 F 59 L 18 11/17/17 07:53 98.4 F 59 L 18 107/59 L 94 L 11/17/17 04:05 97.8 F 61 18 145/71 H 99 11/16/17 23:01 99.7 F H 70 12 140/67 94 L Weight Weight 138 lb 9.6 oz I&O: 11/16/17 11/17/17 11/18/17 06:59 06:59 06:59 Intake Total 1700 Balance 1700 Result Diagrams: 11/17/17 03:29 11/17/17 03:29 Additional Labs: Accuchecks 11/17/17 11/16/17 04:08 21:11 POC Glucose 86 241 H EKG Reviewed by me: Yes (nsr) Phys Exam - Physical Examination Constitutional: NAD HEENT: PERRLA, moist MMs, sclera anicteric Neck: no JVD, supple Respiratory: no wheezing, no rales, no rhonchi Cardiovascular: RRR, no significant murmur, no rub Gastrointestinal: soft, non-tender, no distention, positive bowel sounds Musculoskeletal: no edema, pulses present Neurological: non-focal, normal sensation, moves all 4 limbs Lymphatic: no nodes Psychiatric: normal affect, A&O x 3 Skin: no rash, normal turgor Dx/Plan (1) End stage renal disease on dialysis Code(s): N18.6 - END STAGE RENAL DISEASE; Z99.2 - DEPENDENCE ON RENAL DIALYSIS Status: Chronic (2) Hypokalemia Code(s): E87.6 - HYPOKALEMIA Status: Acute (3) Anemia of renal disease Code(s): D63.1 - ANEMIA IN CHRONIC KIDNEY DISEASE Status: Chronic (4) Bilateral nephrolithiasis Code(s): N20.0 - CALCULUS OF KIDNEY Status: Chronic (5) Diabetes type 2, controlled Code(s): E11.9 - TYPE 2 DIABETES MELLITUS WITHOUT COMPLICATIONS Status: Chronic Qualifiers: (6) High anion gap metabolic acidosis Code(s): E87.2 - ACIDOSIS Status: Chronic (7) Hypertension Code(s): I10 - ESSENTIAL (PRIMARY) HYPERTENSION Status: Chronic Qualifiers: (8) PVD (peripheral vascular disease) Code(s): I73.9 - PERIPHERAL VASCULAR DISEASE, UNSPECIFIED Status: Chronic (9) Secondary hyperparathyroidism (of renal origin) Code(s): N25.81 - SECONDARY HYPERPARATHYROIDISM OF RENAL ORIGIN Status: Chronic - Plan cont current plan of care * today again plan for HD * will dc if nephrology ok * will consider removal of tunneled hd catheter today if nephrology ok * medication reviewed as below * symptomatic treatment. Review of Systems - Review of Systems ENT: negative: Ear Pain, Ear Discharge, Nose Pain, Nose Discharge, Nose Congestion, Mouth Pain, Mouth Swelling, Throat Pain, Throat Swelling, Other Respiratory: negative: Cough, Dry, Shortness of Breath, Hemoptysis, SOB with Excertion, Pleuritic Pain, Sputum, Wheezing Cardiovascular: negative: chest pain, palpitations, orthopnea, paroxysmal nocturnal dyspnea, edema, light headedness, other Gastrointestinal: negative: Nausea, Vomiting, Abdominal Pain, Diarrhea, Constipation, Melena, Hematochezia, Other Genitourinary: negative: Dysuria, Frequency, Incontinence, Hematuria, Retention , Other Musculoskeletal: negative: Neck Pain, Shoulder Pain, Arm Pain, Back Pain, Hand Pain, Leg Pain, Foot Pain, Other Skin: negative: Rash, Lesions, Jhoan, Bruising, Other - Medications/Allergies Allergies/Adverse Reactions: Allergies Allergy/AdvReac Type Severity Reaction Status Date / Time No Known Allergies Allergy Verified 09/22/17 10:31 Medications: Current Medications Acetaminophen (Tylenol) 650 mg PO Q4H PRN PRN Reason: Headache/Fever or Pain Last Admin: 11/17/17 04:12 Dose: 650 mg Hydrocodone Bitart/Acetaminophen ([place] 5/325) 1 tab PO Q4H PRN PRN Reason: Moderate Pain (4-6) Al Hydroxide/Mg Hydroxide (Maalox) 30 ml PO Q6H PRN PRN Reason: Heartburn or Indigestion Artificial Tears (Tears Naturale) 0 drop EA EYE PRN PRN PRN Reason: Dry Eyes Calcitriol (Rocaltrol) 0.25 mcg PO DAILY POP Last Admin: 11/17/17 08:13 Dose: 0.25 mcg Calcium Carbonate (Tums) 1,000 mg PO BID [facility] Last Admin: 11/17/17 08:13 Dose: 1,000 mg Dextrose/Water (Dextrose 50%) 25 gm IVP PRN PRN PRN Reason: HYPOGLYCEMIA PROTOCOL Famotidine (Pepcid) 20 mg PO DAILY [facility] Last Admin: 11/17/17 08:13 Dose: 20 mg Ferrous Sulfate (Feosol) 325 mg PO [facility] Last Admin: 11/17/17 08:12 Dose: 325 mg Glucagon (Glucagon) 1 mg IM PRN PRN PRN Reason: HYPOGLYCEMIA PROTOCOL Guaifenesin (Robitussin Sf) 200 mg PO Q4H PRN PRN Reason: Cough Hydralazine HCl (Apresoline) 10 mg SLOW IVP Q4H PRN PRN Reason: Systolic BP > 180 Last Admin: 11/16/17 18:09 Dose: 10 mg Dextrose/Water (D5w) 1,000 mls @ 0 mls/hr IV INF PRN PRN Reason: HYPOGLYCEMIA PROTOCOL Insulin Human Regular (Humulin R) 0 units SC .MILD SLIDING PRN; Protocol PRN Reason: MILD SLIDING SCALE Insulin Human Regular (Humulin R) 0 units SC .BEDTIME SLIDING SC PRN; Protocol PRN Reason: BEDTIME SLIDING SCALE Loperamide HCl (Imodium) 2 mg PO PRN PRN PRN Reason: Diarrhea/Loose Stools Loratadine (Claritin) 10 mg PO DAILYPRN PRN PRN Reason: Sinus Symptoms Magnesium Hydroxide (Milk Of Magnesium) 30 ml PO DAILYPRN PRN PRN Reason: Constipation Mineral Oil/White Petrolatum (Eucerin Cream) 0 gm TOP BIDPRN PRN PRN Reason: Dry Skin Ondansetron HCl (Zofran Odt) 4 mg PO Q6H PRN PRN Reason: Nausea/Vomiting Ondansetron HCl (Zofran) 4 mg IVP Q6H PRN PRN Reason: Nausea/Vomiting Phenol (Chloraseptic [place] 180 Ml Bot) 0 ml PO PRN PRN PRN Reason: Sore Throat Senna (Senokot) 2 tab PO HSPRN PRN PRN Reason: Constipation Sodium Chloride ([place] Nasal [place] 0.65%) 0 ml EA NARE QIDPRN PRN PRN Reason: Nasal Congestion Vitamin B Complex/Vit C/Folic Acid (Nephro-Emilia Tablet) 1 tab PO DAILY POP Last Admin: 11/17/17 08:13 Dose: 1 tab Zolpidem Tartrate (Ambien) 5 mg PO HSPRN PRN PRN Reason: Insomnia
--- NOTE | 2017-11-17 10:49 | PRG ---
DATE OF SERVICE: 11/16/2017 SUBJECTIVE: Mr. Meek is a 62-year-old male with end-stage renal disease/chronic renal fa ilure, admitted for uremic signs and symptoms. He underwent emergent hemodialysis. He also received 2 units of packed RBC. He is feeling better this morning. Our plan is to do another dialysis with this patient consider discharge. OBJECTIVE: VITAL SIGNS: Blood pressure 107/59, temperature 98.4, pulse ox 94%, respiratory rate is 18, heart ra te 59. GENERAL: Awake, alert, ambulatory, comfortable. SKIN: Adequate turgor. HEENT: Slightly pale conjunctivae, anicteric sclerae. NECK: No neck mass, no carotid bruits, no JVD. CHEST: No deformities. LUNGS: Clear breath sounds, no wheezing, no crackles. HEART: Normal sinus rhythm. No murmur, no gallops or rubs. ABDOMEN: Globular, soft, nontender. No masses. EXTREMITIES: No edema, no deformities. MEDICATIONS: Of 11/17/2017 was reviewed. LABORATORY DATA: Of 11/17/2017, sodium 140, potassium 3.2, chloride 110, carbon dioxide 14, BUN 77, creatinine 10, glucose 104, calcium is 8, phosphorus 7.7. ASSESSMENT AND PLAN: 1. Hyperphosphatemia. Continue Tums 500 mg 1 tab t.i.d. with meals. 2. End-stage renal disease/chronic renal failure, hemodialysis today. We will do a 4-hour dialysis treatment with this patient. 3. Anemia, status post blood transfusion. Continue weekly Epogen. Patient can be discharged after dialysis.
--- NOTE | 2017-11-17 11:52 | DIS ---
PRIMARY CARE PHYSICIAN: Dr. Nikki Crow. DATE OF ADMISSION: 11/16/2017 DATE OF DISCHARGE: 11/17/2017 DISCHARGE DISPOSITION: Home. PRIMARY DISCHARGE DIAGNOSES: 1. End-stage renal disease, needing hemodialysis. 2. Symptomatic anemia. SECONDARY DISCHARGE DIAGNOSES: Secondary hyperparathyroidism of renal origin, peripheral vascular di sease, hypertension, metabolic acidosis due to end-stage renal disease, diabetes type 2, diet control led, history of bilateral nephrolithiasis, end-stage renal disease on hemodialysis, and anemia of yariel al disease. PRIMARY PROCEDURE/OPERATION: Maintenance hemodialysis while in hospital. RADIOLOGICAL INVESTIGATION: Chest x-ray was unremarkable. DISCHARGE PLAN: Post hospital, the patient will follow up with primary care physician. HOSPITAL COURSE: The patient is a 62-year-old male. He is having ESRD, but unfortunately b ecause of his legal status, he is not able to get maintenance hemodialysis as an outpatient basis and that is why he comes to the hospital periodically for maintenance hemodialysis. This time, he came for dialysis. He was having uremia symptoms. The patient got dialysis and he was given 2 units of b lood transfusion for his symptomatic anemia. The patient is again getting a repeat dialysis today. Otherwise, the patient is medically stable. He will continue all above-mentioned medication. Today, his hemoglobin is 9.4. WBC 6.43, platelet 148, sodium 140, creatinine 10.17. Cardiac enzymes negat anabell. LFT normal. DISCHARGE MEDICATIONS: Rocaltrol 0.25 mcg p.o. daily, ferrous sulfate 325 mg p.o. daily, Tums 500 mg p.o. t.i.d., folic acid with Nephro-Emilia tablet 1 daily. CONTRAINDICATIONS: None. CODE STATUS: FULL CODE. INPATIENT CONSULTANTS: Dr. Yates. RADIOLOGIC INVESTIGATION: Chest x-ray was unremarkable. The patient is seen and examined at bedside today. Please see my progress note from today for furthe r detail.
[2017-11-17 16:32] VITALS: BP 176/93; TEMP 98
--- NOTE | 2017-11-22 20:13 | EKG ---
Test Reason : Blood Pressure : / mmHG Vent. Rate : 056 BPM Atrial Rate : 056 BPM P-R Int : 170 ms QRS Dur : 094 ms QT Int : 484 ms P-R-T Axes : 047 033 038 degrees QTc Int : 467 ms Sinus bradycardia Otherwise normal ECG Confirmed by NEDA DURAN ([id number]), primer expeditor and drier MITRA STOUT ([id number]) on 11/22/2017 8:13:17 PM Referred By: Confirmed By:NEDA DURAN
== END 2017-11-17 16:12 | disposition home or self-care (01) ==
LOC: ERS 08:59 → 2SW 11:04
PROVIDERS: ADMIT Internal Medicine; ATTEND Internal Medicine
DX: I12.0 Hypertensive chronic kidney disease with stage 5 chronic kidney disease or end stage renal disease (principal); E11.22 Type 2 diabetes mellitus with diabetic chronic kidney disease; N18.6 End stage renal disease; D63.1 Anemia in chronic kidney disease; N25.81 Secondary hyperparathyroidism of renal origin; F17.210 Nicotine dependence, cigarettes, uncomplicated; E87.6 Hypokalemia; N20.0 Calculus of kidney; E87.2 Acidosis; E11.51 Type 2 diabetes mellitus with diabetic peripheral angiopathy without gangrene; Z79.899 Other long term (current) drug therapy; Z99.2 Dependence on renal dialysis
CPT/HCPCS: 36415; 36416; 36430; 71045; 80053; 80069; 82550; 82553; 83880; 84484; 85025; 86850; 86900; 86901; 87040; 90471; 90670; 90935; 93005; 96374; G0009; G0257; G0378; J0360; J1644; P9016; Q4081

== ENCOUNTER 2017-11-28 08:32 | Inpatient (IN) | payer SELFPAY ==
[2017-11-28 09:18] LABS: Hemoglobin 8.5 g/dL (14.0-18.0); Mean Corpuscular HGB CONC 31.8 g/dL (32.0-36.0); Mean Corpuscular Hemoglobin 27.6 pg (27.0-31.0); Mean Corpuscular Volume 86.6 fL (78.0-98.0); Mean Platelet Volume 9.4 fL (7.4-10.4); Platelet Count 178 thou/uL (130-400); RBC Distribution Width 15.3 % (11.5-14.5); Red Blood Cell (RBC) Count 3.08 mill/uL (4.70-6.10); White Blood Cell (WBC) Count 11.8 thou/uL (4.8-10.8)
[2017-11-28 09:35] LABS: CKMB 5.9 ng/mL (0-6.6); Troponin I 0.014 ng/mL (< 0.028)
[2017-11-28 09:41] LABS: ALT (SGPT) 11 U/L (8-55); AST (SGOT) 4 U/L (5-34); Alkaline Phosphatase 56 U/L (40-150); Bilirubin, Total 0.5 mg/dL (0.2-1.2); CK (CPK) 134 U/L (30-200); Calc. Creatinine Clearance 0 mL/min (70-130); Chloride 110 mmol/L (98-107); Estimated GFR-MDRD 3; Glucose 70 mg/dL (80-115); Potassium 4.8 mmol/L (3.5-5.1); Sodium 138 mmol/L (136-145)
[2017-11-28 09:43] LABS: Band 12 % (5-11); Burr Cells MODERATE= 6-15 cells (100X) (0-1/hpf); Lymphocytes 15 % (21-51); MDiff Complete? YES; Monocytes 10 % (0-10); Neutrophil 62 % (42-75); PLT Morphology Comment Appears Adequate; Polychromasia SLIGHT = 2-3 cells (100X) (0-2/hpf); Schistocytes SLIGHT = 2-5 cells (100X) (0-1/hpf)
--- NOTE | 2017-11-28 09:48 | RAD ---
PORTABLE AP CHEST X-RAY: 11/28/2017 HISTORY: Weakness. COMPARISON: 11/16/2017 FINDINGS: A tunneled right internal jugular vein hemodialysis catheter is again noted in place. There is linea r atelectasis present at each lung base. The lungs are otherwise clear. The cardiac silhouette and pulmonary vasculature are within normal limits. There has been no interval change from the prior carmita dy. IMPRESSION: No acute cardiopulmonary process. POS: JULIANO
[2017-11-28 09:49] LABS: Carbon Dioxide Less than 8 mmol/L (23-31)
[2017-11-28 09:52] LABS: BUN (Urea Nitrogen) 150 mg/dL (8.4-25.7)
[2017-11-28 10:48] LABS: Bilirubin Negative (Negative); Blood, Urine Large (Negative); Clarity TURBID (Clear); Glucose, Urine (Dipstick) Negative (Negative); Leukocyte Large (Negative); Nitrite Negative (Negative); Protein, Urine (Dipstick) 300 mg/dL (Neg-Trace); Specific Gravity, Urine 1.015 (1.002-1.036); Urobilinogen 0.2 mg/dL (0.2-1.0)
[2017-11-28 10:50] LABS: Hyaline Casts/LPF 4-6 HYALINE CAST LPF (0-3 Hyaline); Squamous Epithelial 0-3 HPF (0-3)
[2017-11-28 10:52] LABS: Yeast-AUWi Flag 511.6 (0-25.0)
[2017-11-28 11:00] LABS: Bacteria/HPF 1+ HPF (None Seen); Yeast-All Forms Rare HPF (None Seen)
[2017-11-28 11:02] LABS: RBC/HPF GREATER THAN 50-TNTC HPF (0-3)
[2017-11-28] MEDS ORDERED: Heparin 1,000 UNITS/ML VIAL ONE (11:11)
--- NOTE | 2017-11-28 11:51 | HP ---
PRIMARY CARE PROVIDER: [facility]. SLEEVE SETTER LOCKSTITCH: Dr. Yates. Referred to the [facility] Service by [facility] after Dr. Yates was called. HISTORY OF PRESENT ILLNESS: The patient was profoundly weak, some shortness of breath has been prese nt several days. No swelling. No nausea or vomiting. PAST MEDICAL HISTORY: Pertinent for end-stage renal disease, anemia, diabetes mellitus type 2, histo ry of nephrolithiasis. ALLERGIES: No known drug allergies. PAST SURGICAL HISTORY: Osteomyelitis of the left fourth toe post-amputation, post-ureteral stent for nephrolithiasis. FAMILY HISTORY: Mother with diabetes. SOCIAL HISTORY: Drinks alcohol about once a month. Denies tobacco or drug use. FULL CODE status. at bedside, next of kin. REVIEW OF SYSTEMS: General: No headaches, dizziness, fainting, fever or chills. Eyes: No double v ision, blurred vision, flashing lights. Ear, Nose, and Throat: Denies ear pain or drainage, nasal b leeding, trouble swallowing. Cardiac: No chest pain, shortness of breath or paroxysmal nocturnal dy spnea. Respiratory: No cough, wheezing or asthma. Gastrointestinal: No nausea, abdominal pain, di arrhea or constipation. Genitourinary: Scant urine, no dysuria or hematuria. Musculoskeletal: No pain or swelling in his arms or legs. Neurologic: No strokes, seizures or focal weakness. Psychiat audrey: No anxiety, depression. Skin: No bruises, bleeding or rash. PHYSICAL EXAMINATION: GENERAL: He is a lethargic gentleman, French speaking only, history through pier hand helper. VITAL SIGNS: Blood pressure 111/62, pulse 57, respirations 16, O2 sat 96 on room air. HEENT: Pupils equal, round, and reactive to light. Extraocular movements are intact. Sclerae white . Tympanic membranes are clear. Nose is clear. Oral mucous membranes are dry. Dental hygiene is f air. NECK: No jugular venous distention, adenopathy or thyromegaly. CHEST: Clear to auscultation and percussion. HEART: Regular rate and rhythm. First and second heart sounds are clear. There are no murmurs or g allops. ABDOMEN: Soft, bowel sounds are normal. There is no hepatosplenomegaly, no mass, no rebound. EXTREMITIES: Reveal no cyanosis, clubbing or edema. PULSES: Carotid, radial, femoral, and dorsalis pedis pulses palpable and symmetric. SKIN: He has a sallow complexion, no bruising or rash. HEME/LYMPH: No tender or swollen lymph nodes in axilla, inguinal or cervical area. NEUROLOGICAL: Cranial nerves II-XII are intact. Deep tendon reflexes symmetric. IMAGING: Chest x-ray shows no cardiomegaly, CHF, mild pulmonary vascular congestion, hemodialysis ca theter in the right side of his chest, reviewed by me. EKG: Regular sinus rhythm, no acute T-wave c hanges, reviewed by me. LABORATORY: His hemoglobin is 8.5, white count 11.8, platelet count 178,000. His sodium was 138, po tassium 4.4, chloride 110, CO2 less than 8, BUN 150, creatinine 18.21. Blood sugar 70. Lactic acid 0.5. ADMITTING DIAGNOSES: 1. Uremia syndrome with end-stage renal disease, needing dialysis. 2. Acidosis, metabolic. 3. Anemia of chronic kidney disease. 4. Diabetes mellitus type 2, diet controlled. PLAN: Discussed with Dr. Yates. Dialysis today and tomorrow and then reevaluate.
[2017-11-28] MEDS ORDERED: Zolpidem Tartrate 5 MG TAB PO PRN (12:41)
[2017-11-28] MEDS ORDERED: Ondansetron ODT 4 MG TAB PO PRN (12:41)
[2017-11-28 12:49] VITALS: BMI 26.4
[2017-11-28] MEDS: traMADol HCl 50 MG TAB PO PRN ×2 (15:19→21:36)
[2017-11-28] MEDS: Acetaminophen 325 MG TAB PO PRN (19:24)
[2017-11-29] MEDS: traMADol HCl 50 MG TAB PO PRN (08:16)
[2017-11-29] MEDS ORDERED: cefTRIAXone\\ROCEPHIN 1 GM in Sodium Chloride 0.9% 100 ML IVPB SCH (09:15)
[2017-11-29] MEDS: Ondansetron ODT 4 MG TAB PO PRN ×2 (09:23→14:42)
--- NOTE | 2017-11-29 10:39 | PRG ---
DATE OF SERVICE: 11/29/2017 RENAL MEDICINE SUBJECTIVE: Mr. Meek is a 62-year-old male with ESRD and reported to the ER for generali zed nausea and vomiting. Last dialysis was yesterday and prior to that was about 12 days ago. He whittaker d a severe metabolic acidosis and acidemia. He underwent emergent hemodialysis yesterday for 3 hours . I am currently dialyzing this patient for 4 hours today. I am at the bedside supervising his dial ysis. He denies any chest pain or shortness of breath at the present time. PHYSICAL EXAMINATION: VITAL SIGNS: Blood pressure is 119/57, heart rate 59, respiratory rate 16, temperature 98.1, pulse o x 94%. GENERAL: Noted to be awake, alert, supine, comfortable, not in overt distress. SKIN: Adequate turgor. HEENT: Slightly pale conjunctivae, anicteric sclerae. NECK: No neck mass, no carotid bruits. No JVD. CHEST: No deformities. LUNGS: Clear breath sounds, no wheezing, no crackles. HEART: Normal sinus rhythm. No murmur, no gallops, no rubs. ABDOMEN: Globular, soft, nontender, no masses. EXTREMITIES: No edema, no deformities. MEDICATIONS: Medications of 11/29/2017 was reviewed. LABORATORY DATA: Laboratories of 11/28/2017; white count 11.8, hemoglobin 8.5. Sodium 138, potassiu m 4.8, chloride 110, carbon dioxide 8, BUN 150, creatinine 18.21, calcium 7, AST is 4, ALT 11, tropon in I 0.014. IMAGING DATA: Chest x-ray - normal. ASSESSMENT AND PLAN: 1. End-stage renal disease. Patient is undergoing second consecutive dialysis for 4 hours. Again, fluid removal as tolerated by the patient. 2. Anemia. Start Epogen 7,500 units subcu every week. 3. Metabolic acidosis, hemodialysis being done. 4. Renal osteodystrophy. The patient is to continue with his Tums and calcitriol. The patient will come back on a p.r.n. basis. We are unable or the patient is unable to find outpati ent dialysis placement.
[2017-11-29] MEDS ORDERED: Epoetin (ESRD) 20,000 UNITS/ML SC SCH (11:00)
--- NOTE | 2017-11-29 11:46 | PDOC.PN ---
- Subjective Encounter Start Date: 11/29/17 Encounter Start Time: 11:44 Subjective: feels poorly. nauseated and hurts all over - Objective Resuscitation Status: Resuscitation Status FULL:Full Resuscitation MAR Reviewed: Yes Vital Signs & Weight: Vital Signs (12 hours) Temp Pulse Resp BP BP Pulse Ox 11/29/17 07:22 98.1 F 59 L 16 119/57 L 94 L 11/29/17 04:10 98.4 F 60 16 120/64 94 L 11/29/17 00:15 99.1 F 64 18 134/63 98 Weight Weight 141 lb 9.6 oz I&O: 11/28/17 11/29/17 11/30/17 06:59 06:59 06:59 Intake Total 250 Output Total 1500 Balance -1250 Result Diagrams: 11/28/17 09:01 11/28/17 09:01 Additional Labs: Microbiology 11/28/17 09:01 Venous blood - Right Hand Blood Culture - Preliminary Specimen has been received and culture in progress. No Growth to date. 11/28/17 09:01 Venous blood - Right Arm Blood Culture - Preliminary Specimen has been received and culture in progress. No Growth to date. Phys Exam - Physical Examination pale and ill looking HEENT: PERRLA, moist MMs, sclera anicteric, oral pharynx no lesions Neck: no nodes, no JVD, supple, full ROM Respiratory: no wheezing, no rales, no rhonchi, clear to auscultation bilateral Cardiovascular: RRR, no significant murmur Gastrointestinal: soft, non-tender, no distention, positive bowel sounds Musculoskeletal: no edema, pulses present Neurological: non-focal, normal sensation, moves all 4 limbs Psychiatric: normal affect, A&O x 3 Skin: no rash Dx/Plan (1) Uremia Code(s): N19 - UNSPECIFIED KIDNEY FAILURE Status: Acute (2) UTI (urinary tract infection) Status: Acute Qualifiers: Hematuria presence: without hematuria (3) Uncontrolled diabetes mellitus Code(s): E11.65 - TYPE 2 DIABETES MELLITUS WITH HYPERGLYCEMIA Status: Chronic Qualifiers: Diabetes mellitus type: type 2 Glycemic state: with hyperglycemia Qualified Code(s): E11.65 - Type 2 diabetes mellitus with hyperglycemia (4) Anemia of renal disease Code(s): D63.1 - ANEMIA IN CHRONIC KIDNEY DISEASE Status: Chronic (5) End stage renal disease on dialysis Code(s): N18.6 - END STAGE RENAL DISEASE; Z99.2 - DEPENDENCE ON RENAL DIALYSIS Status: Chronic (6) Hypertension Code(s): I10 - ESSENTIAL (PRIMARY) HYPERTENSION Status: Chronic Qualifiers: (7) PVD (peripheral vascular disease) Code(s): I73.9 - PERIPHERAL VASCULAR DISEASE, UNSPECIFIED Status: Chronic (8) Secondary hyperparathyroidism (of renal origin) Code(s): N25.81 - SECONDARY HYPERPARATHYROIDISM OF RENAL ORIGIN Status: Chronic - Plan incentive spirometry, DVT proph w/heparin, DVT proph w/SCDs Add empirc ABx, send urine for culture. -: Hd w fluid removal as tolerated -: daily labs -: pt high risk of decompensation w uremia.will change to inpatient -: supportive care * . Review of Systems - Review of Systems Constitutional: weakness, malaise. negative: fever, chills, sweats, other ENT: negative: Ear Pain, Ear Discharge, Nose Pain, Nose Discharge, Nose Congestion, Mouth Pain, Mouth Swelling, Throat Pain, Throat Swelling, Other Respiratory: negative: Cough, Dry, Shortness of Breath, Hemoptysis, SOB with Excertion, Pleuritic Pain, Sputum, Wheezing Cardiovascular: negative: chest pain, palpitations, orthopnea, paroxysmal nocturnal dyspnea, edema, light headedness, other Gastrointestinal: Nausea, Vomiting Genitourinary: negative: Dysuria, Frequency, Incontinence, Hematuria, Retention , Other Musculoskeletal: Neck Pain, Shoulder Pain, Back Pain, Leg Pain Skin: negative: Rash, Lesions, Jhoan, Bruising, Other Neurological: negative: Weakness, Numbness, Incoordination, Change in Speech, Confusion, Seizures, Other - Medications/Allergies Allergies/Adverse Reactions: Allergies Allergy/AdvReac Type Severity Reaction Status Date / Time No Known Allergies Allergy Verified 11/18/17 11:33 Medications: Current Medications Acetaminophen (Tylenol) 650 mg PO Q4H PRN PRN Reason: Headache/Fever or Pain Last Admin: 11/28/17 19:24 Dose: 650 mg Calcitriol (Rocaltrol) 0.25 mcg PO DAILY [facility] Calcium Carbonate (Tums) 500 mg PO TID-WM [facility] Epoetin Nino (Procrit) 7,500 units SC Q7D [facility] Ferrous Sulfate (Feosol) 325 mg PO DAILY [facility] Ceftriaxone Sodium 1 gm/ (Sodium Chloride) 100 mls @ 200 mls/hr IVPB Q24HR [facility] Ondansetron HCl (Zofran Odt) 4 mg PO Q4H PRN PRN Reason: Nausea/Vomiting Last Admin: 11/29/17 09:23 Dose: 4 mg Tramadol HCl (Ultram) 25 mg PO Q6H PRN PRN Reason: Moderate Pain (4-6) Last Admin: 11/29/17 08:16 Dose: 25 mg Vitamin B Complex/Vit C/Folic Acid (Nephro-Emilia Tablet) 1 tab PO DAILY [facility] Zolpidem Tartrate (Ambien) 5 mg PO HSPRN PRN PRN Reason: Insomnia
[2017-11-29] MEDS: Calcium Carbonate 500 MG ChewTAB PO SCH ×2 (12:00→16:54)
[2017-11-29] MEDS: cefTRIAXone\\ROCEPHIN 1 GM in Sodium Chloride 0.9% 100 ML IVPB SCH (14:44)
[2017-11-29] MEDS ORDERED: hydrALAZINE 20 MG/ML VIAL SLOW IVP PRN (15:08)
[2017-11-29] MEDS ORDERED: Sodium Chloride 0.9% 250 ML 250 ML IVPB SCH (15:15)
[2017-11-29] MEDS ORDERED: Amlodipine 10 MG TAB PO SCH (15:15)
[2017-11-29] MEDS ORDERED: Promethazine HCl 25 MG/ML VIAL SLOW IVP SCH (15:45)
[2017-11-30 05:23] LABS: Anion Gap 18 mmol/L (10-20); BUN (Urea Nitrogen) 38 mg/dL (8.4-25.7); Calc. Creatinine Clearance 10 mL/min (70-130); Calcium 7.4 mg/dL (7.8-10.44); Carbon Dioxide 23 mmol/L (23-31); Chloride 100 mmol/L (98-107); Estimated GFR-MDRD 8; Glucose 91 mg/dL (80-115); Potassium 2.7 mmol/L (3.5-5.1); Sodium 138 mmol/L (136-145)
[2017-11-30] MEDS ORDERED: Potassium Chloride 20 MEQ TAB PO SCH ×2 (05:45→15:00)
[2017-11-30] MEDS: Amlodipine 10 MG TAB PO SCH (09:25)
[2017-11-30] MEDS: Calcium Carbonate 500 MG ChewTAB PO SCH ×2 (09:25→14:56)
[2017-11-30] MEDS: Ferrous Sulfate 325 MG TAB PO SCH (09:25)
[2017-11-30] MEDS: Calcitriol 0.25 MCG CAP PO SCH (09:25)
[2017-11-30] MEDS: Folic Acid/Vit B Comp W-C PO SCH (09:31)
--- NOTE | 2017-11-30 10:08 | PRG ---
DATE OF SERVICE: 11/30/2017 RENAL MEDICINE SUBJECTIVE: Mr. Meek is a 62-year-old male with ESRD and was admitted for septicemia and severe metabolic acidosis. He underwent emergent hemodialysis for 2 consecutive days. He is feelin g better, no complaints of chest pain or shortness of breath. OBJECTIVE: VITAL SIGNS: Blood pressure 131/65, heart rate 56, respiratory rate 16, temperature 96.9, pulse ox 9 6%. GENERAL: Awake, alert, supine, comfortable, not in distress. SKIN: Adequate turgor. HEENT: Slightly pale conjunctivae, anicteric sclerae. NECK: No neck mass, no carotid bruits. LUNGS: Clear breath sounds. HEART: Normal sinus rhythm. No murmur, no gallops, no rubs. ABDOMEN: Globular, soft, nontender, no masses. EXTREMITIES: No edema, no deformities. MEDICATIONS: 11/30/2017 reviewed. LABORATORY DATA: 11/30/2017, sodium 128, potassium 2.7, chloride 100, carbon dioxide 23, BUN 38, cre atinine 7.01, calcium 7.4. 11/28/2017, hemoglobin 8.5. ASSESSMENT AND PLAN: 1. End-stage renal disease. The patient received 2 dialysis sessions. Continue current regimen. O dmitriy for discharge. The patient to come back on a p.r.n. basis. 2. Anemia, on weekly Epogen. 3. Mild hypokalemia, p.r.n. correction. We will consider if removing dialysis catheter when the pat ient comes back next visit. We were only able to use the AV fistula one time.
--- NOTE | 2017-11-30 12:01 | PDOC.PN ---
- Subjective Encounter Start Date: 11/30/17 Encounter Start Time: 11:59 Subjective: feels much better today - Objective Resuscitation Status: Resuscitation Status FULL:Full Resuscitation MAR Reviewed: Yes Vital Signs & Weight: Vital Signs (12 hours) Temp Pulse Resp BP Pulse Ox 11/30/17 09:25 56 L 11/30/17 08:00 95 11/30/17 04:30 96.9 F L 56 L 16 131/65 96 Weight Weight 141 lb 9.6 oz I&O: 11/29/17 11/30/17 12/01/17 06:59 06:59 06:59 Intake Total 250 950 Output Total 1500 3500 Balance -1250 -2550 Result Diagrams: 11/28/17 09:01 11/30/17 04:45 Additional Labs: Microbiology 11/28/17 10:30 Urine clean catch Urine Culture - Preliminary 11/28/17 09:01 Venous blood - Right Hand Blood Culture - Preliminary Specimen has been received and culture in progress. No Growth to date. 11/28/17 09:01 Venous blood - Right Arm Blood Culture - Preliminary Specimen has been received and culture in progress. No Growth to date. Radiology Reviewed by me: Yes Phys Exam - Physical Examination Constitutional: NAD HEENT: PERRLA, moist MMs, sclera anicteric, oral pharynx no lesions Neck: no nodes, no JVD, supple, full ROM Respiratory: no wheezing, no rales, no rhonchi, clear to auscultation bilateral Cardiovascular: RRR, no significant murmur, no rub Gastrointestinal: soft, non-tender, no distention, positive bowel sounds Musculoskeletal: no edema, pulses present Neurological: non-focal, normal sensation, moves all 4 limbs Psychiatric: normal affect, A&O x 3 Skin: no rash Dx/Plan (1) Uremia Code(s): N19 - UNSPECIFIED KIDNEY FAILURE Status: Acute Comment: s/p urgent HD sessions (2) UTI (urinary tract infection) Status: Acute Qualifiers: Hematuria presence: without hematuria Comment: Cx pending (3) Uncontrolled diabetes mellitus Code(s): E11.65 - TYPE 2 DIABETES MELLITUS WITH HYPERGLYCEMIA Status: Chronic Qualifiers: Diabetes mellitus type: type 2 Glycemic state: with hyperglycemia Qualified Code(s): E11.65 - Type 2 diabetes mellitus with hyperglycemia (4) Anemia of renal disease Code(s): D63.1 - ANEMIA IN CHRONIC KIDNEY DISEASE Status: Chronic (5) End stage renal disease on dialysis Code(s): N18.6 - END STAGE RENAL DISEASE; Z99.2 - DEPENDENCE ON RENAL DIALYSIS Status: Chronic (6) Hypertension Code(s): I10 - ESSENTIAL (PRIMARY) HYPERTENSION Status: Chronic Qualifiers: (7) PVD (peripheral vascular disease) Code(s): I73.9 - PERIPHERAL VASCULAR DISEASE, UNSPECIFIED Status: Chronic (8) Secondary hyperparathyroidism (of renal origin) Code(s): N25.81 - SECONDARY HYPERPARATHYROIDISM OF RENAL ORIGIN Status: Chronic - Plan plan discussed w/ family, continue antibiotics, PT/OT, out of bed/ambulate, DVT proph w/SCDs clinically better -: replace and recheck potassium. check Mag -: kalli GEORGE home tomorrow if labs WNl & urine Cx results available. -: am labs. -: cont empiric antibiotic.plan discussed w Isiah at bedside * . Review of Systems - Review of Systems Constitutional: weakness. negative: fever, chills, sweats, malaise, other ENT: negative: Ear Pain, Ear Discharge, Nose Pain, Nose Discharge, Nose Congestion, Mouth Pain, Mouth Swelling, Throat Pain, Throat Swelling, Other Respiratory: negative: Cough, Dry, Shortness of Breath, Hemoptysis, SOB with Excertion, Pleuritic Pain, Sputum, Wheezing Cardiovascular: negative: chest pain, palpitations, orthopnea, paroxysmal nocturnal dyspnea, edema, light headedness, other Gastrointestinal: negative: Nausea, Vomiting, Abdominal Pain, Diarrhea, Constipation, Melena, Hematochezia, Other Genitourinary: negative: Dysuria, Frequency, Incontinence, Hematuria, Retention , Other Musculoskeletal: negative: Neck Pain, Shoulder Pain, Arm Pain, Back Pain, Hand Pain, Leg Pain, Foot Pain, Other Neurological: negative: Weakness, Numbness, Incoordination, Change in Speech, Confusion, Seizures, Other - Medications/Allergies Allergies/Adverse Reactions: Allergies Allergy/AdvReac Type Severity Reaction Status Date / Time No Known Allergies Allergy Verified 11/18/17 11:33 Medications: Current Medications Acetaminophen (Tylenol) 650 mg PO Q4H PRN PRN Reason: Headache/Fever or Pain Last Admin: 11/28/17 19:24 Dose: 650 mg Amlodipine Besylate (Norvasc) 10 mg PO DAILY [facility] Last Admin: 11/30/17 09:25 Dose: 10 mg Calcitriol (Rocaltrol) 0.25 mcg PO DAILY [facility] Last Admin: 11/30/17 09:25 Dose: 0.25 mcg Calcium Carbonate (Tums) 500 mg PO TID-[facility] Last Admin: 11/30/17 09:25 Dose: 500 mg Epoetin Nino (Procrit) 7,500 units SC Q7D [facility] Last Admin: 11/29/17 14:44 Dose: 7,500 units Ferrous Sulfate (Feosol) 325 mg PO DAILY [facility] Last Admin: 11/30/17 09:25 Dose: 325 mg Hydralazine HCl (Apresoline) 10 mg SLOW IVP Q4H PRN PRN Reason: .SYSTOLIC >170 Last Admin: 11/29/17 15:26 Dose: 10 mg Ceftriaxone Sodium 1 gm/ (Sodium Chloride) 100 mls @ 200 mls/hr IVPB 1500 [facility] Last Admin: 11/29/17 14:44 Dose: 100 mls Ondansetron HCl (Zofran Odt) 4 mg PO Q4H PRN PRN Reason: Nausea/Vomiting Last Admin: 11/29/17 14:42 Dose: 4 mg Tramadol HCl (Ultram) 25 mg PO Q6H PRN PRN Reason: Moderate Pain (4-6) Last Admin: 11/29/17 08:16 Dose: 25 mg Vitamin B Complex/Vit C/Folic Acid (Nephro-Emilia Tablet) 1 tab PO DAILY [facility] Last Admin: 11/30/17 09:31 Dose: 1 tab Zolpidem Tartrate (Ambien) 5 mg PO HSPRN PRN PRN Reason: Insomnia
[2017-11-30 13:36] LABS: Potassium 2.8 mmol/L (3.5-5.1)
[2017-11-30] MEDS: cefTRIAXone\\ROCEPHIN 1 GM in Sodium Chloride 0.9% 100 ML IVPB SCH (15:20)
[2017-12-01 05:47] LABS: Anion Gap 17 mmol/L (10-20); BUN (Urea Nitrogen) 60 mg/dL (8.4-25.7); Calc. Creatinine Clearance 8 mL/min (70-130); Calcium 7.2 mg/dL (7.8-10.44); Carbon Dioxide 20 mmol/L (23-31); Chloride 100 mmol/L (98-107); Estimated GFR-MDRD 6; Glucose 83 mg/dL (80-115); Potassium 3.1 mmol/L (3.5-5.1); Sodium 134 mmol/L (136-145)
--- NOTE | 2017-12-01 09:17 | PRG ---
DATE OF SERVICE: 12/01/2017 SUBJECTIVE: Mr. Meek is a 62-year-old male with known history of ESRD. He is currently undergoing dialysis today. No other complaints, no chest pain or shortness of breath. PHYSICAL EXAMINATION: VITAL SIGNS: Blood pressure is 141/81, heart rate 115, temperature 97.9, respiratory rate 20, pulse ox 98%. GENERAL: Awake, alert, comfortable, not in distress. SKIN: Adequate turgor. HEENT: Slightly pale conjunctivae, anicteric sclerae. NECK: No neck mass, no carotid bruits, no JVD. CHEST: No deformities. LUNGS: Clear breath sounds. HEART: Normal sinus rhythm. No murmur, no gallops, no rubs. ABDOMEN: Globular, soft, nontender, no masses. EXTREMITIES: No edema, no deformities. MEDICATIONS: 12/01/2017 - Reviewed. LABORATORY: 12/01/2017 - Sodium 134, potassium 3.1, chloride 100, carbon dioxide 20, BUN 60, creatin ine 9.2, glucose 83, calcium 7.2. Hemoglobin 8.5. ASSESSMENT AND PLAN: 1. End-stage renal disease - undergoing a 4 hour hemodialysis. Minimal fluid removal is being done due to the previous cramping episodes. 2. Mild hypokalemia - using a 4-0 potassium bath during dialysis. 3. Anemia, continuing weekly Epogen. 4. Secondary hyperparathyroidism - the patient is to continue with the current dose of calcitriol. I have consulted Surgery for removal of this cuffed dialysis catheter.
--- NOTE | 2017-12-01 12:45 | PDOC.PN ---
- Subjective Encounter Start Date: 12/01/17 Encounter Start Time: 12:43 Subjective: feels well. no new complaints. no more pain - Objective Resuscitation Status: Resuscitation Status FULL:Full Resuscitation MAR Reviewed: Yes Vital Signs & Weight: Weight Weight 141 lb 9.6 oz I&O: 11/30/17 12/01/17 12/02/17 06:59 06:59 06:59 Intake Total 950 100 Output Total 3500 Balance -2550 100 Result Diagrams: 11/28/17 09:01 12/01/17 04:49 Additional Labs: Microbiology 11/28/17 10:30 Urine clean catch Urine Culture - Preliminary 11/28/17 09:01 Venous blood - Right Hand Blood Culture - Preliminary NO GROWTH AT 48 HOURS 11/28/17 09:01 Venous blood - Right Arm Blood Culture - Preliminary NO GROWTH AT 48 HOURS Phys Exam - Physical Examination Constitutional: NAD HEENT: PERRLA, moist MMs, sclera anicteric, oral pharynx no lesions Neck: no nodes, no JVD, supple, full ROM Respiratory: no wheezing, no rales, no rhonchi, clear to auscultation bilateral Cardiovascular: RRR, no significant murmur, no rub Gastrointestinal: soft, non-tender, no distention, positive bowel sounds Musculoskeletal: no edema, pulses present Neurological: non-focal, normal sensation, moves all 4 limbs Psychiatric: normal affect, A&O x 3 Skin: no rash Dx/Plan (1) Uremia Code(s): N19 - UNSPECIFIED KIDNEY FAILURE Status: Acute Comment: s/p urgent HD sessions (2) UTI (urinary tract infection) Status: Acute Qualifiers: Hematuria presence: without hematuria Comment: Cx pending (3) Uncontrolled diabetes mellitus Code(s): E11.65 - TYPE 2 DIABETES MELLITUS WITH HYPERGLYCEMIA Status: Chronic Qualifiers: Diabetes mellitus type: type 2 Glycemic state: with hyperglycemia Qualified Code(s): E11.65 - Type 2 diabetes mellitus with hyperglycemia (4) Anemia of renal disease Code(s): D63.1 - ANEMIA IN CHRONIC KIDNEY DISEASE Status: Chronic (5) End stage renal disease on dialysis Code(s): N18.6 - END STAGE RENAL DISEASE; Z99.2 - DEPENDENCE ON RENAL DIALYSIS Status: Chronic (6) Hypertension Code(s): I10 - ESSENTIAL (PRIMARY) HYPERTENSION Status: Chronic Qualifiers: (7) PVD (peripheral vascular disease) Code(s): I73.9 - PERIPHERAL VASCULAR DISEASE, UNSPECIFIED Status: Chronic (8) Secondary hyperparathyroidism (of renal origin) Code(s): N25.81 - SECONDARY HYPERPARATHYROIDISM OF RENAL ORIGIN Status: Chronic - Plan plan discussed w/ family, continue antibiotics, out of bed/ambulate, DVT proph w /heparin, DVT proph w/SCDs Hemodialysis today. check labs in am -: potassium improved.managed per HD today -: Urine Cx negative so far but looks contaminated-cont empiric ABx -: Removal of tunnled HD cathter tomorrow, then DC home if stable -: meds as below. H/H stable.cont FeSO4,Epogen * . Review of Systems - Review of Systems Constitutional: negative: fever, chills, sweats, weakness, malaise, other Respiratory: negative: Cough, Dry, Shortness of Breath, Hemoptysis, SOB with Excertion, Pleuritic Pain, Sputum, Wheezing Cardiovascular: negative: chest pain, palpitations, orthopnea, paroxysmal nocturnal dyspnea, edema, light headedness, other Gastrointestinal: negative: Nausea, Vomiting, Abdominal Pain, Diarrhea, Constipation, Melena, Hematochezia, Other Genitourinary: negative: Dysuria, Frequency, Incontinence, Hematuria, Retention , Other Musculoskeletal: negative: Neck Pain, Shoulder Pain, Arm Pain, Back Pain, Hand Pain, Leg Pain, Foot Pain, Other Neurological: negative: Weakness, Numbness, Incoordination, Change in Speech, Confusion, Seizures, Other - Medications/Allergies Allergies/Adverse Reactions: Allergies Allergy/AdvReac Type Severity Reaction Status Date / Time No Known Allergies Allergy Verified 11/18/17 11:33 Medications: Current Medications Acetaminophen (Tylenol) 650 mg PO Q4H PRN PRN Reason: Headache/Fever or Pain Last Admin: 11/28/17 19:24 Dose: 650 mg Amlodipine Besylate (Norvasc) 10 mg PO DAILY [facility] Last Admin: 11/30/17 09:25 Dose: 10 mg Calcitriol (Rocaltrol) 0.25 mcg PO DAILY [facility] Last Admin: 11/30/17 09:25 Dose: 0.25 mcg Calcium Carbonate (Tums) 500 mg PO TID-[facility] Last Admin: 11/30/17 14:56 Dose: Not Given Epoetin Nino (Procrit) 7,500 units SC Q7D [facility] Last Admin: 11/29/17 14:44 Dose: 7,500 units Ferrous Sulfate (Feosol) 325 mg PO DAILY [facility] Last Admin: 11/30/17 09:25 Dose: 325 mg Hydralazine HCl (Apresoline) 10 mg SLOW IVP Q4H PRN PRN Reason: .SYSTOLIC >170 Last Admin: 11/29/17 15:26 Dose: 10 mg Ceftriaxone Sodium 1 gm/ (Sodium Chloride) 100 mls @ 200 mls/hr IVPB 1500 [facility] Last Admin: 11/30/17 15:20 Dose: 100 mls Ondansetron HCl (Zofran Odt) 4 mg PO Q4H PRN PRN Reason: Nausea/Vomiting Last Admin: 11/29/17 14:42 Dose: 4 mg Tramadol HCl (Ultram) 25 mg PO Q6H PRN PRN Reason: Moderate Pain (4-6) Last Admin: 11/29/17 08:16 Dose: 25 mg Vitamin B Complex/Vit C/Folic Acid (Nephro-Emilia Tablet) 1 tab PO DAILY [facility] Last Admin: 11/30/17 09:31 Dose: 1 tab Zolpidem Tartrate (Ambien) 5 mg PO HSPRN PRN PRN Reason: Insomnia
[2017-12-01] MEDS: Ferrous Sulfate 325 MG TAB PO SCH (13:37)
[2017-12-01] MEDS: Calcium Carbonate 500 MG ChewTAB PO SCH ×4 (13:38→16:20)
[2017-12-01] MEDS: Amlodipine 10 MG TAB PO SCH (13:38)
[2017-12-01] MEDS: Calcitriol 0.25 MCG CAP PO SCH (13:39)
[2017-12-01] MEDS: Folic Acid/Vit B Comp W-C PO SCH (13:39)
[2017-12-01] MEDS ORDERED: Lidocaine 1% w/Epinephrine 1:100K 20 ML VIAL FS SCH (13:45)
[2017-12-01] MEDS: cefTRIAXone\\ROCEPHIN 1 GM in Sodium Chloride 0.9% 100 ML IVPB SCH (15:17)
[2017-12-02 06:04] LABS: Anion Gap 15 mmol/L (10-20); BUN (Urea Nitrogen) 36 mg/dL (8.4-25.7); Calc. Creatinine Clearance 11 mL/min (70-130); Calcium 7.9 mg/dL (7.8-10.44); Carbon Dioxide 24 mmol/L (23-31); Chloride 102 mmol/L (98-107); Estimated GFR-MDRD 9; Glucose 102 mg/dL (80-115); Potassium 4.1 mmol/L (3.5-5.1); Sodium 137 mmol/L (136-145)
--- NOTE | 2017-12-02 08:15 | PRG ---
DATE OF SERVICE: 12/02/2017 SUBJECTIVE: Mr. Clark is a 62-year-old male with ESRD. He is currently undergoing hemodialy sis. He received dialysis yesterday. We were able to use the AV fistula without any problem. We whittaker ve consulted Surgery for removal of the cuffed dialysis catheter. I had a long discussion with the jared mendez. The plan is the patient might try to go back to [place] to get his regular dialysis treatment t here. No other complaints today. PHYSICAL EXAMINATION: VITAL SIGNS: Blood pressure 124/88, heart rate 62, respiratory rate 20, temperature 96.5, pulse ox 1 00%. GENERAL: Awake, alert, comfortable, sitting, not in distress. SKIN: Adequate turgor. HEENT: Slightly pale conjunctivae, anicteric sclerae. NECK: No neck mass, no carotid bruits, no JVD. CHEST: No deformities. LUNGS: Clear breath sounds, no wheezing, no crackles. HEART: Normal sinus rhythm. No murmur, no gallops or rubs. ABDOMEN: Globular, soft, nontender. No masses. EXTREMITIES: No edema, no deformities. MEDICATIONS: 12/02/2017 - Reviewed. LABORATORY DATA: 12/02/2017 - Sodium 137, potassium 4.1, chloride 102, carbon dioxide 24, BUN 36, c reatinine 6.31, glucose 102, calcium 7.9. ASSESSMENT AND PLAN: 1. End-stage renal disease - continuing 3 times a week hemodialysis - if the patient is here. Once d ischarged, we will try to find placement for outpatient dialysis. According to the niece, the patien t might go back to [place]. 2. Anemia, continuing weekly Epogen. 3. Dialysis access - surgical consult has been done to pull out the cuffed dialysis catheter. Overall, I agree with current management.
[2017-12-02] MEDS: Calcium Carbonate 500 MG ChewTAB PO SCH ×3 (09:00→17:04)
[2017-12-02] MEDS: Amlodipine 10 MG TAB PO SCH (09:00)
[2017-12-02] MEDS: Ferrous Sulfate 325 MG TAB PO SCH (09:01)
[2017-12-02] MEDS: Folic Acid/Vit B Comp W-C PO SCH (09:01)
[2017-12-02] MEDS: Calcitriol 0.25 MCG CAP PO SCH (09:01)
--- NOTE | 2017-12-02 13:57 | PDOC.PN ---
- Subjective Encounter Start Date: 12/02/17 Encounter Start Time: 13:56 Subjective: feels well. no pain/discmfort/SOB - Objective Resuscitation Status: Resuscitation Status FULL:Full Resuscitation MAR Reviewed: Yes Vital Signs & Weight: Vital Signs (12 hours) Temp Pulse Resp BP BP Pulse Ox 12/02/17 09:00 62 124/88 12/02/17 08:00 100 12/02/17 07:46 96.5 F L 62 20 124/88 100 Weight Weight 141 lb 9.6 oz I&O: 12/01/17 12/02/17 12/03/17 06:59 06:59 06:59 Intake Total 100 1100 Balance 100 1100 Result Diagrams: 11/28/17 09:01 12/02/17 05:27 Additional Labs: Accuchecks 12/02/17 12/02/17 12/01/17 10:43 05:09 16:24 POC Glucose 196 H 129 H 188 H Microbiology 11/28/17 10:30 Urine clean catch Urine Culture - Final 11/28/17 09:01 Venous blood - Right Hand Blood Culture - Preliminary NO GROWTH AT 48 HOURS 11/28/17 09:01 Venous blood - Right Arm Blood Culture - Preliminary NO GROWTH AT 48 HOURS Phys Exam - Physical Examination Constitutional: NAD HEENT: PERRLA, moist MMs, sclera anicteric, oral pharynx no lesions Neck: no nodes, no JVD, supple, full ROM Respiratory: no wheezing, no rales, no rhonchi, clear to auscultation bilateral Cardiovascular: RRR, no significant murmur, no rub Gastrointestinal: soft, non-tender, no distention, positive bowel sounds Musculoskeletal: no edema, pulses present Neurological: non-focal, normal sensation, moves all 4 limbs Psychiatric: normal affect, A&O x 3 Skin: no rash Dx/Plan (1) Uremia Code(s): N19 - UNSPECIFIED KIDNEY FAILURE Status: Resolved Comment: s/p urgent HD sessions (2) UTI (urinary tract infection) Status: Acute Qualifiers: Hematuria presence: without hematuria Comment: Cx pending (3) Uncontrolled diabetes mellitus Code(s): E11.65 - TYPE 2 DIABETES MELLITUS WITH HYPERGLYCEMIA Status: Chronic Qualifiers: Diabetes mellitus type: type 2 Glycemic state: with hyperglycemia Qualified Code(s): E11.65 - Type 2 diabetes mellitus with hyperglycemia (4) Anemia of renal disease Code(s): D63.1 - ANEMIA IN CHRONIC KIDNEY DISEASE Status: Chronic (5) End stage renal disease on dialysis Code(s): N18.6 - END STAGE RENAL DISEASE; Z99.2 - DEPENDENCE ON RENAL DIALYSIS Status: Chronic (6) Hypertension Code(s): I10 - ESSENTIAL (PRIMARY) HYPERTENSION Status: Chronic Qualifiers: (7) PVD (peripheral vascular disease) Code(s): I73.9 - PERIPHERAL VASCULAR DISEASE, UNSPECIFIED Status: Chronic (8) Secondary hyperparathyroidism (of renal origin) Code(s): N25.81 - SECONDARY HYPERPARATHYROIDISM OF RENAL ORIGIN Status: Chronic - Plan DVT proph w/SCDs DC home when HD catheter removed -: OP f/u w nephrology -: Emergency medicare form signed. -: pt educated about disease prognosis/trajectory & need for scheduled HD * . Review of Systems - Review of Systems Constitutional: negative: fever, chills, sweats, weakness, malaise, other ENT: negative: Ear Pain, Ear Discharge, Nose Pain, Nose Discharge, Nose Congestion, Mouth Pain, Mouth Swelling, Throat Pain, Throat Swelling, Other Respiratory: negative: Cough, Dry, Shortness of Breath, Hemoptysis, SOB with Excertion, Pleuritic Pain, Sputum, Wheezing Cardiovascular: negative: chest pain, palpitations, orthopnea, paroxysmal nocturnal dyspnea, edema, light headedness, other Gastrointestinal: negative: Nausea, Vomiting, Abdominal Pain, Diarrhea, Constipation, Melena, Hematochezia, Other Genitourinary: negative: Dysuria, Frequency, Incontinence, Hematuria, Retention , Other Musculoskeletal: negative: Neck Pain, Shoulder Pain, Arm Pain, Back Pain, Hand Pain, Leg Pain, Foot Pain, Other Neurological: negative: Weakness, Numbness, Incoordination, Change in Speech, Confusion, Seizures, Other - Medications/Allergies Allergies/Adverse Reactions: Allergies Allergy/AdvReac Type Severity Reaction Status Date / Time No Known Allergies Allergy Verified 11/18/17 11:33 Medications: Current Medications Acetaminophen (Tylenol) 650 mg PO Q4H PRN PRN Reason: Headache/Fever or Pain Last Admin: 11/28/17 19:24 Dose: 650 mg Amlodipine Besylate (Norvasc) 10 mg PO DAILY [facility] Last Admin: 12/02/17 09:00 Dose: 10 mg Calcitriol (Rocaltrol) 0.25 mcg PO DAILY [facility] Last Admin: 12/02/17 09:01 Dose: 0.25 mcg Calcium Carbonate (Tums) 500 mg PO TID-[facility] Last Admin: 12/02/17 12:11 Dose: 500 mg Epoetin Nino (Procrit) 7,500 units SC Q7D [facility] Last Admin: 11/29/17 14:44 Dose: 7,500 units Ferrous Sulfate (Feosol) 325 mg PO DAILY [facility] Last Admin: 12/02/17 09:01 Dose: 325 mg Hydralazine HCl (Apresoline) 10 mg SLOW IVP Q4H PRN PRN Reason: .SYSTOLIC >170 Last Admin: 11/29/17 15:26 Dose: 10 mg Ceftriaxone Sodium 1 gm/ (Sodium Chloride) 100 mls @ 200 mls/hr IVPB 1500 [facility] Last Admin: 12/01/17 15:17 Dose: 100 mls Ondansetron HCl (Zofran Odt) 4 mg PO Q4H PRN PRN Reason: Nausea/Vomiting Last Admin: 11/29/17 14:42 Dose: 4 mg Tramadol HCl (Ultram) 25 mg PO Q6H PRN PRN Reason: Moderate Pain (4-6) Last Admin: 11/29/17 08:16 Dose: 25 mg Vitamin B Complex/Vit C/Folic Acid (Nephro-Emilia Tablet) 1 tab PO DAILY [facility] Last Admin: 12/02/17 09:01 Dose: 1 tab Zolpidem Tartrate (Ambien) 5 mg PO HSPRN PRN PRN Reason: Insomnia
[2017-12-02] MEDS: cefTRIAXone\\ROCEPHIN 1 GM in Sodium Chloride 0.9% 100 ML IVPB SCH (15:07)
[2017-12-02 19:29] VITALS: BP 121/58; TEMP 98
[2017-12-03] MEDS: Acetaminophen 325 MG TAB PO PRN ×2 (02:00→14:11)
--- NOTE | 2017-12-03 02:10 | DIS ---
DATE OF ADMISSION: 11/28/2017 DATE OF DISCAHRGE: 12/02/2017 PRIMARY CARE PHYSICIAN: None. DISCHARGE DIAGNOSES: 1. Uremia, improved. 2. Chronic kidney disease requiring hemodialysis. 3. Suspected urinary tract infection, but ruled out. 4. Uncontrolled diabetes mellitus. 5. Anemia of chronic kidney disease. 6. Hypertension. 7. Peripheral vascular disease. 8. Secondary hyperparathyroidism. DISCHARGE MEDICATIONS: Remain the same as admission medication, folic acid daily, ferrous sulfate 32 5 mg daily, Tums 500 mg p.o. t.i.d., calcitriol 0.25 mcg daily, amlodipine 10 mg daily, which is a ne w medication for him. INHOUSE CONSULTATIONS: Nephrology, Dr. Yates. PROCEDURES DONE IN THE HOSPITAL: Maintenance hemodialysis and removal of a temporary hemodialysis ca theter. HISTORY OF PRESENT ILLNESS: Mr. Clark is a 62-year-old male with known history of end-stage renal frank lysis, who is undocumented immigrant and is uninsured. He has multiple hospitalizations because of w orsening renal function as he is not able to get scheduled dialysis. He once again presented to the ER, profoundly weak with shortness of breath and was found to be uremic with BUN of 150, creatinine o f 18.21. He was admitted for urgent hemodialysis. Please see admission history and physical for fur ther details. HOSPITAL COURSE: The patient did very well with dialysis and was back to his baseline with back to b ack dialysis. He will be discharged later today after removal of his hemodialysis catheter by Dr. Lopez. Discharge plan was discussed with the patient and his niece. They verbalized understanding an d understood the importance of hemodialysis scheduled. Medications were reconciled and he was started on amlodipine for high blood pressure and prescription s were provided. He was seen and examined prior to discharge. Please see hospitalist progress note for further detail s including [id number] interaction.
[2017-12-03 04:33] LABS: Anion Gap 16 mmol/L (10-20); BUN (Urea Nitrogen) 55 mg/dL (8.4-25.7); Calc. Creatinine Clearance 8 mL/min (70-130); Calcium 8.4 mg/dL (7.8-10.44); Carbon Dioxide 20 mmol/L (23-31); Chloride 102 mmol/L (98-107); Estimated GFR-MDRD 6; Glucose 100 mg/dL (80-115); Potassium 4.2 mmol/L (3.5-5.1); Sodium 134 mmol/L (136-145)
--- NOTE | 2017-12-03 09:28 | PRG ---
DATE OF SERVICE: 12/03/2017 SUBJECTIVE: Mr. Eduardo Meek is a 62-year-old male with ESRD, currently on maintenance hemo dialysis. I am at the bedside supervising his dialysis. He was not able to go home yesterday since the dialysis catheter was not yet pulled out by Surgery. Surgery has been reconsulted regarding pull ing out this catheter. I am at the bedside supervising his dialysis. He is tolerating said treatmen t. No other complaints. The patient denies any chest pain, shortness of breath. OBJECTIVE: VITAL SIGNS: Blood pressure is noted at 121/58 with a heart rate of 69, respiratory rate 16, tempera ture 98, pulse ox 97%. GENERAL: Noted to be awake, alert, comfortable, not in distress. SKIN: Adequate turgor. HEENT: Slightly pale conjunctivae, anicteric sclerae. NECK: No neck mass, no carotid bruits. No JVD. CHEST: No deformities. LUNGS: Clear breath sounds, no wheezing, no crackles. HEART: Normal sinus rhythm. No murmur, no gallops or rubs. ABDOMEN: Globular, soft, nontender, no masses. EXTREMITIES: No edema, no deformities. MEDICATIONS: 12/03/2017 - Reviewed. LABORATORY DATA: 11/28/2017 - Hemoglobin 8.5. Sodium 134, potassium 4.2, chloride 102, carbon diox tierney 20, BUN 55, creatinine 8.43, glucose 100, calcium 8.4. ASSESSMENT AND PLAN: 1. End-stage renal disease - continuing 3 times a week hemodialysis. Fluid removal only as tolerate d by the patient. We are using the AV fistula and the function is adequate. We are awaiting for Janki willoughby to pull out the dialysis catheter. 2. Anemia. Continue weekly Epogen. I agree with planned discharge.
[2017-12-03] MEDS: Ferrous Sulfate 325 MG TAB PO SCH (14:03)
[2017-12-03] MEDS: Amlodipine 10 MG TAB PO SCH (14:03)
[2017-12-03] MEDS: Calcium Carbonate 500 MG ChewTAB PO SCH (14:04)
[2017-12-03] MEDS: Folic Acid/Vit B Comp W-C PO SCH (14:04)
[2017-12-03] MEDS: Calcitriol 0.25 MCG CAP PO SCH (14:04)
--- NOTE | 2017-12-03 17:04 | PDOC.OP ---
Operative Note - Operative Note Operative Note: PROCEDURE: Removal internal jugular tunneled hemodialysis catheter DATE OF PROCEDURE: 12/03/2017 SURGEON: Dane Pineda M.D. PREOPERATIVE DIAGNOSIS: Unneeded dialysis catheter POSTOPERATIVE DIAGNOSIS: Unneeded dialysis catheter HISTORY: Patient with working AV fistula, and unneeded tunneled hemodialysis catheter for which removal has been requested by the systematic theology professor. PROCEDURE: After informed consent was obtained, the patient's neck and chest were prepped with ChloraPrep. Local anesthesia was infused to the skin and subcutaneous tissue surrounding the subcutaneous cuff which was several centimeters from the exit site. The cuff was dissected free of the surrounding scar tissue and the catheter clamped and divided distally to the clamp. Pressure was held on the proximal catheter site and the dialysis catheter was removed during exhalation. The skin incision was closed with interrupted 4-0 Monocryl suture as pressure was held for 5 minutes. The external portion of the catheter was then removed and a sterile gauze and Tegaderm dressing was placed at the exit site. The patient tolerated the procedure well. Estimated blood loss was minimal. There were no complications. There were no specimens.
--- NOTE | 2017-12-03 23:57 | DIS ---
Please refer to my discharge summary dictated on 12/02/2017. It has complete details of the hospital ization. The patient was not discharged yesterday of his hemodialysis tunnel catheter was not being able to be pulled. This morning, he underwent on the round of dialysis and the catheter has been pulled out by Dr. Pineda without complications and the patient will be discharged. He was seen and examined on the hemodialysis and is fairly stable and has no new complaints. PHYSICAL EXAMINATION: This morning: VITAL SIGNS: Heart rate 69, saturating 99% on room air. GENERAL: He is in no acute distress, awake, alert, oriented x3. CHEST: Clear to auscultation bilaterally. Rate and rhythm is regular, without any murmurs. EXTREMITIES: Free of any cyanosis, clubbing, or edema. LABORATORY DATA: Urine culture, blood culture negative until date. For details, see discharge summa ry dictated by myself yesterday.
--- NOTE | 2017-12-06 11:52 | EKG ---
Test Reason : Blood Pressure : / mmHG Vent. Rate : 060 BPM Atrial Rate : 060 BPM P-R Int : 154 ms QRS Dur : 114 ms QT Int : 486 ms P-R-T Axes : 027 057 049 degrees QTc Int : 486 ms Normal sinus rhythm Minimal voltage criteria for LVH, may be normal variant Prolonged QT Abnormal ECG Confirmed by HECTOR PRESCOTT DO ([id number]), deputy editor in chief JAKE CHANG ([id number]) on 12/06/2017 11:52:42 AM Referred By: Confirmed By:HECTOR PRESCOTT DO
== END 2017-12-03 16:38 | disposition home or self-care (01) | DRG 682 ==
LOC: ERS 08:32 → 2SW 12:39 → OBSVTOIN 12:39 → ONC 11-29 14:01
PROVIDERS: ADMIT Internal Medicine; ATTEND Internal Medicine
PROC: 05PYX3Z Removal of Infusion Device from Upper Vein, External Approach (ICD-10-PCS; principal; 2017-12-03)
DX: I12.0 Hypertensive chronic kidney disease with stage 5 chronic kidney disease or end stage renal disease (principal); N18.6 End stage renal disease; E87.2 Acidosis; N39.0 Urinary tract infection, site not specified; N25.81 Secondary hyperparathyroidism of renal origin; E11.22 Type 2 diabetes mellitus with diabetic chronic kidney disease; D63.1 Anemia in chronic kidney disease; I73.9 Peripheral vascular disease, unspecified; Z99.2 Dependence on renal dialysis; E87.6 Hypokalemia; N25.0 Renal osteodystrophy
CPT/HCPCS: 36415; 36416; 71045; 80048; 80053; 81003; 81015; 82553; 83605; 83735; 84484; 85025; 87040; 87086; 90935; 93005; 94760; G0257; J0360; J0696; J1644; J2001; J2550; J7050; Q0162; Q4081